=== PATIENT | male | born 1935 | race African-American/Black ===

== ENCOUNTER 2017-04-27 13:51 | Inpatient (IN) ==
[2017-04-27] MEDS ORDERED: SODIUM CHLORIDE 0.9% 1,000 ML IV STA (14:52)
--- NOTE | 2017-04-27 14:52 | XRay Report ---
XR chest 1V portable Indication: Abdominal pain. Comparison: None. Technique: Portable AP chest was performed. Findings: Moderate cardiomegaly is demonstrated. Additionally, the central vasculature is prominent and mid lower lung parenchyma demonstrates areas of reticular interstitial opacification and linear interstitial opacification with superimposed scattered airspace opacities additionally present. Gallbladder appears surgically absent. Bones and soft tissues are unremarkable. Impression: 1. Appearance of the chest is most suggestive of congestive heart failure with features of pulmonary edema interstitial and possibly some alveolar edema present. 04/27/2017 2:49 PM PROCEDURE INTERPRETED AT [facility] DEPARTMENT OF RADIOLOGY Final Report Signed by: Dr. William Crespo
--- NOTE | 2017-04-27 14:53 | XRay Report ---
XR abdomen 2V Indication: Abdominal pain. Comparison: None. Technique: Flat and erect images of the abdomen were performed. Findings: No organomegaly suggested. The bowel gas pattern demonstrates no significant abnormality. Bony structures as well as soft tissues demonstrate no evidence of significant pathology. IVC filter is present. Surgical absence of the gallbladder is demonstrated. Impression: 1. No active process is suggested within the abdomen or pelvis. 04/27/2017 2:50 PM PROCEDURE INTERPRETED AT [facility] DEPARTMENT OF RADIOLOGY Final Report Signed by: Dr. William Crespo
[2017-04-27 14:59] LABS: Basophils # 0.1 10*3/uL (0.0-0.2); Basophils % 1.7 % (0.0-0.8); Eosinophils # 0.2 10*3/uL (0.0-0.87); Eosinophils % 3.2 % (0.00-10.9); Hematocrit 26.6 VOL% (42.0-52.0); Hemoglobin 8.2 GM/DL (14.0-18.0); Immature Granulocytes % 0.4 %; Immature Granulocytes Absolute 0.02 #; Lymphocytes # 1.4 10*3/uL (1.4-4.0); Lymphocytes % 25.9 % (21.2-54.2); Mean Corpuscular HGB Conc 30.8 GM/DL (32-36); Mean Corpuscular Hemoglobin 23 PG (27-34); Mean Corpuscular Volume 73.9 FL (87-102); Mean Platelet Volume 11.3 FL (9.6-12.0); Monocytes # 0.8 10*3/uL (0.11-0.8); Monocytes % 15.6 % (1.7-12.7); NRBC # 0.02 10*3/uL; Neutrophils # 2.8 10*3/uL (1.4-7.4); Neutrophils % 53.2 % (38.7-73.9); Platelet Count 245 T/CUMM (130-400); Red Cell Distribution Width 17.7 % (9.3-17.3); White Blood Count 5.3 T/CUMM (4-12)
--- NOTE | 2017-04-27 15:16 | CT Report ---
CT abdomen pelvis wo con Indication: Diffuse abdominal pain. Nausea. Comparison: None. Technique: CT of the abdomen and pelvis was performed without administration of intravenous contrast. The CT examination was performed using one or more of the following dose reduction techniques: Automatic exposure control, adjustment of the mA and kV according to patient size, use of acute or iterative reconstruction techniques. Findings: Small right-sided pleural effusion is present. Lung parenchyma demonstrates some prominent interstitial lines and prominent dependent pulmonary venous structures. Cardiomegaly is demonstrated. The blood pool is hypoattenuating compared to the ventricle and aortic wall which is nonspecific finding but could reflect evidence of anemia. Coronary artery calcifications and/or stents are suggested within the right coronary artery. Noncontrast enhanced appearance of the liver is unremarkable. The gallbladder is surgically absent. Spleen contains multiple punctate calcifications compatible with prior granulomatous disease. Adrenal glands are unremarkable. The kidneys are blurred with motion and demonstrate multiple hypoattenuating lesions likely reflective of cysts. The largest on the right measures approximately 3.7 cm. The largest on the left measures up to 9.3 cm. Further evaluation is limited secondary to lack of intravenous contrast. Aorta and inferior vena cava demonstrate no acute findings. IVC filter is present. Diffuse intimal calcification of the aorta and iliac arteries is present. Noncontrast enhanced appearance of the stomach and duodenum is unremarkable. Large bowel demonstrates no acute findings. Appendix is not identified and may be surgically absent. Small bowel is grossly unremarkable. Intrapelvic contents demonstrate no specific abnormality. Osseous structures demonstrate degenerative changes of the right greater the left femoral acetabular joint. Additionally there is a mottled expansile appearance of the left SI joint and posterior iliac wing. Prominent trabeculae are present. While nonspecific, this could reflect evidence of Paget's disease. Other considerations could include sequelae of prior osteomyelitis. Facet arthropathy is noted bilaterally within the lower lumbar spine. Impression: 1. Compared to the left iliac wing and sacrum could reflect sequelae of prior Paget's disease or prior infection. 2. Facet arthropathy is moderate within the lower lumbar spine. 3. Mild congestive heart failure with minimal interstitial pulmonary edema can be considered. 4. Multiple bilateral renal cysts are present. Other findings are present as detailed. 04/27/2017 3:09 PM PROCEDURE INTERPRETED AT [facility] DEPARTMENT OF RADIOLOGY Final Report Signed by: Dr. William Crespo
[2017-04-27 15:19] LABS: Alanine Aminotransferase 168 U/L (16-61); Albumin 3.1 G/DL (3.4-5.0); Alkaline Phosphatase 146 U/L (45-117); Amylase 48 U/L (25-115); Aspartate Amino Transferase 234 U/L (0-37); Bilirubin,Total < 0.39 MG/DL (0.2-1.0); Blood Urea Nitrogen 48 MG/DL (7-18); Calcium 8.7 MG/DL (8.5-10.1); Glucose 85 MG/DL (74-106); Magnesium 2.1 MG/DL (1.8-2.4); Osmolality,Calculated 288.5 MOS/KG (273-304); Potassium 4.4 MMOL/L (3.5-5.1); Sodium 139 MMOL/L (136-145); Total Protein 6.5 G/DL (6.4-8.3)
--- NOTE | 2017-04-27 15:47 | Emergency Department Note ---
Sp Kraft Brittany, am scribing for, and in the presence of, Hood Ray MD 14:25. Flor Kraft Phillip K, MD, personally performed the services described in this documentation, ascribed by Rose Snowden in my presence, and it is both accurate and complete 547 . Arrival - Arrival Chief Complaint: Abdominal / Flank Pain Stated Complaint: Lower abdominal pain ED Nursing Triage Note: Patient reports abdominal pain that started last night. No relief following bm this am. Upper quadrants tender to palpation. Has history of constipation. Reports having a "hard" stool earlier today Mode of Arrival: Stretcher Limitations: No Limitations Source: Patient, RN Notes Reviewed Time Seen by Provider: 04/27/17 14:11 - History of Present Illness HPI Narrative: Patient is a 82 y/o black male presenting to the ED with c/o abdominal pain which onset last night. Patient reports a history of constipation and notes passing a hard stool earlier today, with no relief of abdominal pain. Nothing makes pain better or worse. Patient and caregiver deny any recent fevers. Patient does have some nausea, but has not had any vomiting today. Patient does have pain with swallowing. Caregiver denies knowledge of patient having Colonoscopy performed. Patient reports hx of Cholecystectomy, but no Appendectomy. Patient lives at home alone. No other complaint/pain. Allergies/Adverse Reactions: Allergies Allergy/AdvReac Type Severity Reaction Status Date / Time lisinopril AdvReac Swelling Verified 04/27/17 14:17 of Lip/Tongue/Throat Home Medications: Home Medications Medication Instructions Recorded Confirmed Type Nebivolol [Bystolic] 10 mg PO QAM 04/27/17 04/27/17 History Simvastatin 20 mg PO QAM 04/27/17 04/27/17 History hydrALAZINE TAB [Apresoline Tab] 12.5 mg PO BID 04/27/17 04/27/17 History Review of System - Review of System 12 point system: reviewed and no additional remarkable complaints except as stated - Review of System Constitutional: Absent: chills, fever Eyes: Absent: vision change Head/Ears/Nose/Throat: Absent: nasal drainage, sore throat Respiratory: Absent: respiratory distress Cardiovascular: Absent: chest pain Gastrointestinal: Present: abdominal pain, constipation. Absent: nausea, vomiting, diarrhea Genitourinary male: Absent: urgency, dysuria, frequency Musculoskeletal: Absent: arm pain, back pain, leg pain, neck pain Skin: Absent: rash Neurological: Absent: headache Psychiatric: Absent: anxiety, depression Medical,Surgical,& Family Hx - Medical History Cardio: History of: CHF, Hypertension HEENT: History of: Eye Problem (Glasses) - Family History Family History: Reports;: Family Hypertension (Brother) - Social History Smoking Status: Never smoker Frequency of Alcohol Use: None Type of Drug Use: None Exam Vital Signs: Vital Signs Temperature 99.2 F 04/27/17 14:02 Pulse Rate 67 04/27/17 15:03 Respiratory Rate 20 04/27/17 14:02 Blood Pressure 146/96 04/27/17 15:03 O2 Sat by Pulse Oximetry 100 04/27/17 15:03 - General General appearance: alert, in no apparent distress - Head Head exam: Present: atraumatic, normocephalic, normal inspection - Eye Eye exam: Present: normal appearance, PERRL, EOMI - ENT ENT exam: Present: normal exam, normal oropharynx - Neck Neck exam: Present: normal inspection, full ROM, trachea midline - Chest Chest inspection: Present: normal inspection, symmetric chest wall rise - Respiratory Respiratory exam: Present: normal lung sounds bilaterally - Cardiovascular Cardiovascular exam: Present: regular rate, normal rhythm, normal heart sounds - Abdominal Exam Abdominal exam: Present: soft, tenderness (diffuse abdominal tenderness to palpation), hypoactive bowel sounds. Absent: normal bowel sounds - Rectal Exam Rectal exam: Present: heme (-) stool - Extremities Exam Extremities exam: Present: normal inspection - Back Exam Back exam: Present: CVA tenderness (R), CVA tenderness (L). Absent: normal inspection - Neurological Exam Neurological exam: Present: alert, oriented X3, CN II-XII intact. Absent: motor sensory deficit - Psychiatric Psychiatric exam: Present: normal affect, normal mood - Skin Skin exam: Present: warm, dry Course Course Narrative: Patient discussed with the hospitalist Results - Labs CBC & BMP: 04/27/17 14:22 04/27/17 14:22 Lab Results: I have reviewed the patients labs Labs: Laboratory Tests 04/27/17 04/27/17 04/27/17 14:22 14:22 15:00 WBC 5.3 RBC 3.60 L Hgb 8.2 L Hct 26.6 L MCV 73.9 L MCH 23 L MCHC 30.8 L RDW 17.7 H Plt Count 245 Jenkins % (Auto) 15.6 H Baso % (Auto) 1.7 H Sodium 139 Potassium 4.4 Chloride 107 Carbon Dioxide 22 BUN 48 H Creatinine 2.40 H POC Creatinine 2.90 H Glucose 85 AST 234 H ALT 168 H Alkaline Phosphatase 146 H Albumin 3.1 L Albumin/Globulin Ratio 0.9 L - Diagnostic Findings Procedure: Abdominal x-ray: report reviewed by me ( No active process is suggested within the abdomen or pelvis.), Chest x-ray: report reviewed by me ( Appearance of the chest is most suggestive of congestive heart failure with features of pulmonary edema interstitial and possibly some alveolar edema present.), CT Abdomen and Pelvis: report reviewed by me (1. Compared to the left iliac wing and sacrum could reflect sequelae of prior Paget's disease or prior infection. 2. Facet arthropathy is moderate within the lower lumbar spine. 3. Mild congestive heart failure with minimal interstitial pulmonary edema can be considered. 4. Multiple bilateral renal cysts are present. Other findings are present as detailed.) Disposition Clinical Impression: Abdominal pain of unknown etiology, Elevated liver enzymes, CHF NYHA class III (symptoms with mildly strenuous activities) Case discussed with: patient Disposition: Still a Patient Condition: Guarded Additional Instructions: Admit to the hospitalist
--- NOTE | 2017-04-27 15:57 | EKG Report ---
Stationary ECG Study [facility] ER Test Date: 04/27/2017 3:55:49 PM Pat Name: WILBUR ENCISO Department: Room: Gender: M District Supervisor: : 1935 Requested by: Hood Dow Order Number: [id number] Reading MD: HCRIS PEMBERTON Intervals [place] Rate: 70 P: 45 GA: 173 QRS: 0 QRSD: 102 T: -30 QT: 426 QTc: 447 Interpretive Statements SINUS RHYTHM WITH FREQUENT VENTRICULAR PREMATURE COMPLEXES WITH OCCASIONAL SUPRAVENTRICULAR PREMATURE COMPLEXES POSSIBLE LEFT VENTRICULAR HYPERTROPHY Electronically Signed On 05-01-17 18:27:00 CDT by CHRIS PEMBERTON [email or web address]
--- NOTE | 2017-04-27 16:35 | Hospitalist History & Physical ---
Assessment and Plan (1) Elevated serum creatinine Status: Acute Current Visit: Yes (2) Abdominal pain of unknown etiology Status: Acute Current Visit: Yes (3) Elevated liver enzymes Status: Acute Current Visit: Yes (4) CHF NYHA class III (symptoms with mildly strenuous activities) Status: Acute Assessment and plan: We will admit patient our service. I want to get a liver ultrasound on this patient and a renal ultrasound on this patient. He has these bilateral kidneys cysts. He has never been here before I have no old records to look at. They need to be further characterized. We will recheck labs in the morning. It be worthwhile to get a urinalysis. I would like to obtain records from his primary care doctor regarding his previous labs. Patient is never been to our hospital for. CODE STATUS was discussed with patient and he would want to be a full code Current Visit: Yes History of Present Illness Chief complaint: Abdominal pain History of present illness: Mr. Crespo is a 82 year old male with past medical history significant for hypertension, congestive heart failure and mild cognitive impairment who is in his normal state of health until this morning. Apparently patient woke up complaining about abdominal pain after having a hard bowel movement. According to his caregiver patient has a low threshold for pain and patient is a poor historian. There have been no documented fever no chills. Recently he went to the ER at [facility] Tuesday and was told that his blood pressure was high. He went to his regular doctor yesterday which is Dr. aguilera and he adjusted some of his blood pressure medications. And today he presents to our hospital. Patient CT scan of his abdomen was reviewed that revealed multiple bilateral renal cysts mild congestive heart failure facet arthropathy and changes in his iliac wing and sacrum. Patient was found to have elevated creatinine and liver enzymes I was consulted to admit him. Home Medications Medication Instructions Recorded Confirmed Type Nebivolol [Bystolic] 10 mg PO QAM 04/27/17 04/27/17 History Simvastatin 20 mg PO QAM 04/27/17 04/27/17 History hydrALAZINE TAB [Apresoline Tab] 12.5 mg PO BID 04/27/17 04/27/17 History Allergies Allergy/AdvReac Type Severity Reaction Status Date / Time lisinopril AdvReac Swelling Verified 04/27/17 14:17 of Lip/Tongue/Throat Medical,Surgical,& Family Hx - Medical History Cardio: History of: CHF, Hypertension HEENT: History of: Eye Problem (Glasses) - Surgical History Abdominal Surgeries: Surgical HX of: Cholecystectomy - Family History Family History: Reports;: Family Hypertension (Brother) - Social History Smoking Status: Never smoker Frequency of Alcohol Use: None Type of Drug Use: None 12 point system: reviewed and no additional remarkable complaints except as stated Exam - Constitutional Vitals: Period Temp Pulse Resp BP Sys/Dill Pulse Ox Last 24 Hr 99.2 F-99.2 F 64-69 18-20 145-146/90-96 95-100 General appearance: normal weight - Head Head exam: Present: normal inspection - Eye Eye exam: Present: EOMI Pupils: Present: ADARSH - ENT ENT exam: Present: normal exam - Neck Neck exam: Present: normal inspection - Respiratory Respiratory exam: Present: clear to auscultation bilaterally - Cardiovascular Cardiovascular exam: Present: regular rate and rhythm - GI/Abdominal GI/Abdominal exam: Present: normal bowel sounds, tenderness (Noted in his right lower quadrant and right upper quadrant). Absent: rebound - Extremities Exam Extremities exam: Present: normal inspection - Back Exam Back exam: Present: normal inspection Results - Labs CBC & BMP: 04/27/17 14:22 04/27/17 14:22
[2017-04-27] MEDS ORDERED: ACETAMINOPHEN 325 MG TABLET PO PRN (16:39)
[2017-04-27] MEDS ORDERED: ONDANSETRON 4 MG/2 ML VIAL IV PRN (16:39)
[2017-04-27 17:06] LABS: White Blood Count 5.3 T/CUMM (4-12)
[2017-04-27 17:07] LABS: Hematocrit 26.6 VOL% (42.0-52.0); Hemoglobin 8.2 GM/DL (14.0-18.0); Mean Corpuscular Hemoglobin 23 PG (27-34); Mean Corpuscular Volume 73.9 FL (87-102)
[2017-04-27 17:12] LABS: Basophils % 1.7 % (0.0-0.8); Eosinophils % 3.2 % (0.00-10.9); Lymphocytes % 25.9 % (21.2-54.2); Mean Corpuscular HGB Conc 30.8 GM/DL (32-36); Mean Platelet Volume 11.3 FL (9.6-12.0); Monocytes % 15.6 % (1.7-12.7); Neutrophils % 53.2 % (38.7-73.9); Platelet Count 245 T/CUMM (130-400); Red Cell Distribution Width 17.7 % (9.3-17.3)
[2017-04-27 17:13] LABS: Basophils # 0.1 10*3/uL (0.0-0.2); Eosinophils # 0.2 10*3/uL (0.0-0.87); Immature Granulocytes % 0.4 %; Immature Granulocytes Absolute 0.02 #; Lymphocytes # 1.4 10*3/uL (1.4-4.0); Monocytes # 0.8 10*3/uL (0.11-0.8); NRBC # 0.02 10*3/uL; Neutrophils # 2.8 10*3/uL (1.4-7.4)
[2017-04-27 17:23] LABS: Eosinophils 3 % (0-10); Lymphocytes 20 % (20-55); Platelet Estimate Normal; Polychromasia Slight; Segmented Neutrophils 63 % (50-85); Total Cells Counted 100
[2017-04-27 17:24] LABS: Eosinophils 3 % (0-10); Lymphocytes 20 % (20-55); Platelet Estimate Normal; Polychromasia Few; Segmented Neutrophils 63 % (50-85); Total Cells Counted 100
[2017-04-27] MEDS: ENOXAPARIN 30 MG/0.3 ML SYRINGE SUBCUT SCH (17:59)
[2017-04-27 18:03] LABS: Folate 13.4 NG/ML (5.4-24.0); Vitamin B12 454 PG/ML (211-911)
[2017-04-27 18:10] LABS: Sedimentation Rate-Westergren 30 MM/HR (0-20)
[2017-04-27 18:52] LABS: Hepatitis A Ab IgM Quant 0.26 Index; Hepatitis A Ab IgM Result Negative (Negative); Hepatitis B Core IgM Quant < 0.05 Index; Hepatitis B Core IgM Result Negative (Negative); Hepatitis B Surface Ag Quant < 0.10 Index; Hepatitis B Surface Ag Result Negative (Negative); Hepatitis C Virus Ab Quant 0.09 Index; Hepatitis C Virus Ab Result Negative (Negative)
[2017-04-27 21:02] LABS: Apearance,Urine CLEAR (Clear); Bacteria,Urine Occasional /HPF (Few); Bilirubin,Urine Negative (Negative); Blood, Urine Negative (Negative); Glucose,Urine (UA) Negative (Negative); Hyaline Casts,Urine 2 /LPF (0-3); Ketones,Urine Negative (Negative); Mucus,Urine Occasional /LPF (Occasional); Nitrite,Urine Negative (Negative); Protein,Urine 100 MG/DL; RBC,Urine 1 /HPF (0-4); Squamous Epithelial Cell,Urine Occasional /HPF (0-10); Urine Color Yellow (Yellow); Urine Specific Gravity 1.016 (1.001-1.035); Urine Urobilinogen < 2.0 EU/DL (0.2-1.0); WBC,Urine 1 /HPF (0-6)
[2017-04-27] MEDS: hydrALAZINE 25 MG TABLET PO SCH (21:14)
[2017-04-27] MEDS: DOCUSATE SODIUM 100 MG CAPSULE PO SCH (21:15)
[2017-04-28 05:43] LABS: Basophils # 0.1 10*3/uL (0.0-0.2); Basophils % 1.7 % (0.0-0.8); Eosinophils # 0.2 10*3/uL (0.0-0.87); Eosinophils % 4.9 % (0.00-10.9); Hemoglobin 8.4 GM/DL (14.0-18.0); Immature Granulocytes % 0.2 %; Immature Granulocytes Absolute 0.01 #; Lymphocytes # 1.3 10*3/uL (1.4-4.0); Mean Corpuscular HGB Conc 31.1 GM/DL (32-36); Mean Corpuscular Hemoglobin 23 PG (27-34); Mean Corpuscular Volume 73.4 FL (87-102); Mean Platelet Volume 11.8 FL (9.6-12.0); Monocytes # 0.8 10*3/uL (0.11-0.8); Monocytes % 16.5 % (1.7-12.7); NRBC # 0.02 10*3/uL; Neutrophils # 2.3 10*3/uL (1.4-7.4); Neutrophils % 48.7 % (38.7-73.9); Platelet Count 259 T/CUMM (130-400); Red Blood Count 3.68 MC/CUMM (3.8-5.5); Red Cell Distribution Width 17.5 % (9.3-17.3); White Blood Count 4.7 T/CUMM (4-12)
[2017-04-28 06:19] LABS: Eosinophils 9 % (0-10); Lymphocytes 20 % (20-55); Segmented Neutrophils 61 % (50-85); Total Cells Counted 100
[2017-04-28 06:20] LABS: Hypochromasia 1+; Microcytosis 1+; Target Cells Slight
[2017-04-28 06:21] LABS: Acanthocytes Few; Ovalocytes Slight
[2017-04-28 06:22] LABS: Helmet Cells Slight
[2017-04-28 06:23] LABS: Bilirubin,Total 1.3 MG/DL (0.2-1.0); Calcium 8.3 MG/DL (8.5-10.1); Osmolality,Calculated 288.5 MOS/KG (273-304); Platelet Estimate Normal; Potassium 4.1 MMOL/L (3.5-5.1); Total Protein 6.4 G/DL (6.4-8.3)
--- NOTE | 2017-04-28 07:37 | Physician Query Form ---
CLICK EDIT DOCUMENT TO SELECT QUERY ANSWER --> OK --> SIGN Kitty Crespo RN, CCDS Certified Clinical Pattern Generator Operator W) [phone] (f) [phone] [email or web address]: Make your selection(s) from the choices in EACH section by typing an "x" and enter comments in the comment section. Please use your independent medical judgment in providing your response. This request does not imply that any particular answer is desired or expected. CLINICAL INDICATORS: (Providers should not edit this section) The medical record indicates that the patient was admitted with abd pain, creatinine of 2.40 on the 2nd that has decreased to 2.30 on the 3rd, GFR of 27# on the 2nd that has increased to 29# on the 3rd and did not notice IVF's. Clarify which of the following most accurately represents the patient's renal status: ( ) Acute kidney injury (non-traumatic) ( ) Acute renal failure ( ) Acute renal failure with underlying Chronic Kidney Disease (CKD) - please provide stage below ( ) Acute renal failure with pathological renal lesion ( ) Acute renal failure with necrosis ( ) tubular ( ) medullary ( ) cortical ( ) CKD - please provide stage below ( ) End Stage Renal Disease ( ) Acute interstitial nephritis ( ) Hepatorenal syndrome ( ) Other, please specify: ( x) Clinically unable to determine Chronic Kidney Disease Stages Source: National Kidney Disease Foundation ( ) Stage I (eGFR > or = 90) ( ) Stage II (eGFR 60 - 89) ( ) Stage III (eGFR 30 - 59) ( ) Stage IV (eGFR 15 - 29) ( ) Stage V (eGFR < 15 or dialysis) COMMENTS: PLEASE ALSO DOCUMENT RESPONSE IN PROGRESS NOTES AND/OR DISCHARGE SUMMARY Use of terms such as suspected, likely, or probable (associated with a specific diagnosis that is being evaluated, monitored, or treated as if it exists) are acceptable and can be restated in the discharge summary if not ruled out. MTDD
--- NOTE | 2017-04-28 08:08 | Ultrasound Report ---
US abdomen Indication: Elevated liver enzymes Comparison: CT abdomen pelvis dated April 27, 2017 Technique: Multiple longitudinal and transverse real-time sonographic images of the abdomen are obtained. Findings: The liver measures 15.2 cm and demonstrates normal echogenicity without focal abnormality on submitted images. Status post cholecystectomy. The common bile duct measures 0.5 cm in diameter. There is no evidence of intrahepatic ductal dilatation. The right and left kidneys measure 10.2 cm and 13.9 cm, respectively. No evidence of hydronephrosis. Right renal cyst measuring up to 4.7 cm. Left renal cysts measuring up to 9.3 and 2.6 cm respectively. Hyperechoic renal parenchyma suggestive of medical renal disease. The spleen measures 5.9 cm without focal abnormality. Evaluation of the pancreas limited secondary to bowel gas.. IVC and aorta: Visualized portions grossly unremarkable.. No evidence of ascites. IMPRESSION: Medical renal disease without evidence of hydronephrosis. Bilateral renal cysts are noted. This includes a prominent left renal cyst which measures up to 9.3 cm. Patient is status post cholecystectomy. PROCEDURE INTERPRETED AT [facility] DEPARTMENT OF RADIOLOGY Final Report Signed by: Dr Jarrett Contreras
[2017-04-28 09:14] LABS: Hemoglobin A1 (Alkaline) 98.4 % (96.5-98.5); Hemoglobin A2 (Alkaline) 1.6 % (1.5-3.5)
[2017-04-28] MEDS: hydrALAZINE 25 MG TABLET PO SCH ×2 (09:30→21:24)
[2017-04-28] MEDS: NEBIVOLOL 10 MG TABLET PO SCH (09:30)
[2017-04-28] MEDS: PANTOPRAZOLE 40 MG TABLET PO SCH (09:32)
[2017-04-28] MEDS: SIMVASTATIN 20 MG TABLET PO SCH (09:32)
[2017-04-28] MEDS: DOCUSATE SODIUM 100 MG CAPSULE PO SCH ×2 (09:32→21:24)
[2017-04-28] MEDS: ENOXAPARIN 30 MG/0.3 ML SYRINGE SUBCUT SCH (18:10)
--- NOTE | 2017-04-28 20:43 | Hospitalist Progress Note ---
Hospitalist: Subjective Interval history: 82-year-old male was admitted with abdominal pain and renal failure. He reports that his abdominal pain is better today. Exam - Constitutional Vitals: Period Temp Pulse Resp BP Sys/Dill Pulse Ox Last 24 Hr 97.2 F-98.0 F 58-104 16-18 133-149/68-93 91-100 Exam: General: No Acute Distress HEENT: Normocephalic, atraumatic, Extra ocular movements intact Neck: Supple, No JVD Chest: Clear to auscultation B/L CV: S1 + S2 audible without murmur, gallop or rub Abd: soft, NT, Non-distended, BS + Ext: No edema Skin: No purpura, bruising or rash Rheumatologic: No Joint deformities Neurologic: Strength 5/5 all extremities, no gross sensory deficits Results - Labs CBC & BMP: 04/28/17 05:00 04/28/17 05:00 - Impressions Assessment and Plan (1) Elevated serum creatinine Status: Acute Current Visit: Yes (2) Abdominal pain of unknown etiology Status: Acute Current Visit: Yes (3) Elevated liver enzymes Status: Acute Current Visit: Yes (4) CHF NYHA class III (symptoms with mildly strenuous activities)
[2017-04-29 05:44] LABS: Basophils # 0.1 10*3/uL (0.0-0.2); Basophils % 1.9 % (0.0-0.8); Eosinophils # 0.1 10*3/uL (0.0-0.87); Eosinophils % 1.9 % (0.00-10.9); Hematocrit 28.7 VOL% (42.0-52.0); Hemoglobin 9.1 GM/DL (14.0-18.0); Immature Granulocytes % 0.2 %; Immature Granulocytes Absolute 0.01 #; Lymphocytes # 1.5 10*3/uL (1.4-4.0); Lymphocytes % 28.1 % (21.2-54.2); Mean Corpuscular HGB Conc 31.7 GM/DL (32-36); Mean Corpuscular Hemoglobin 23 PG (27-34); Mean Corpuscular Volume 73.8 FL (87-102); Mean Platelet Volume 11.9 FL (9.6-12.0); Monocytes # 0.8 10*3/uL (0.11-0.8); Monocytes % 15.3 % (1.7-12.7); NRBC # 0.03 10*3/uL; Neutrophils # 2.8 10*3/uL (1.4-7.4); Neutrophils % 52.6 % (38.7-73.9); Platelet Count 304 T/CUMM (130-400); Red Blood Count 3.89 MC/CUMM (3.8-5.5); Red Cell Distribution Width 18.1 % (9.3-17.3); White Blood Count 5.2 T/CUMM (4-12)
[2017-04-29 06:20] LABS: Albumin 3.1 G/DL (3.4-5.0); Bilirubin,Direct 0.2 MG/DL (0.0-0.20); Bilirubin,Indirect 0.7 MG/DL (0.0-1.0); Bilirubin,Total 0.9 MG/DL (0.2-1.0); Burr Cells Slight; Calcium 8.7 MG/DL (8.5-10.1); Giant Platelets Few; Hypochromasia 1+; Osmolality,Calculated 286.7 MOS/KG (273-304); Ovalocytes Slight; Platelet Estimate Adequate; Potassium 4.6 MMOL/L (3.5-5.1); Total Protein 6.8 G/DL (6.4-8.3)
[2017-04-29 06:21] LABS: Microcytosis 1+
[2017-04-29] MEDS: NEBIVOLOL 10 MG TABLET PO SCH (09:41)
[2017-04-29] MEDS: PANTOPRAZOLE 40 MG TABLET PO SCH (09:41)
[2017-04-29] MEDS: SIMVASTATIN 20 MG TABLET PO SCH (09:41)
[2017-04-29] MEDS: hydrALAZINE 25 MG TABLET PO SCH ×2 (09:41→20:48)
[2017-04-29] MEDS: DOCUSATE SODIUM 100 MG CAPSULE PO SCH ×2 (09:41→20:49)
--- NOTE | 2017-04-29 12:09 | Gastrointestinal Consult Note ---
<Tamiko Coulter Edmund - Last Filed: 04/29/17 12:02> Assessment and Plan (1) Abdominal pain of unknown etiology Status: Acute Assessment and plan: 04/29-complaints of abdominal pain with recent constipation, currently resolved at this time. Noted to have some upper quadrant tenderness with palpation. No other associated symptoms at present time. CT of abdomen as well as ultrasound results noted as below. No prior history of endoscopy. Further plan addendum follow Dr. López. Current Visit: Yes (2) Elevated liver enzymes Status: Acute Assessment and plan: 04/29-findings on admission of elevated transaminases with history of cholecystectomy. CT and ultrasound negative for acute findings. Noted to be on simvastatin daily. No prior history of facility database to compare baseline LFTs. Hepatitis panel noted to be negative. No known prior history of alcohol use. Further plan an addendum to follow by Dr. López Current Visit: Yes History of Present Illness Chief complaint: Abdominal pain, elevated LFTs History of present illness: Mr. Crespo is a 82 year old male who was admitted to the hospital on 04/27 with complaints of lower abdominal pain. Patient is a fair historian however caregiver is present at bedside and assist in history. Patient is also obtained from chart review. Patient reportedly had an onset several days ago of constipation and lower abdominal pain. He was seen initially in the emergency room in [place] and was given some medication and sent home however he continued to decline over the week until Tuesday when he had increase in pain. He presented to see his PCP [place], Dr. Grewal, and was found to have an elevation in his blood pressure and medication change for this. His abdominal pain continued therefore he presented to our emergency room for further evaluation. Patient reportedly lives alone and his caregiver checks in on him daily. Patient states that he has episodes of constipation from time to time but this is not a chronic issue. He denies any melena or hematochezia with his bowel movements and was heme-negative in the emergency room. Patient denies any associated nausea or vomiting, weight loss, fever. He denies any dysphagia or dyspepsia symptoms as well. He has no prior history of endoscopy in the past. Upon admission, patient was reportedly had a large hard stool and verbalized relief of his abdominal pain at that time. He is able to tolerate a regular diet as well without exacerbation of the symptoms. Patient was also noted on admission to have an elevation in his transaminases. Patient's caregiver is unaware of any prior history of this in the past however states that his prior medical care was done in [place] or at [facility]. At this time, his bilirubin is noted 0.9, AST 282, ALT 245 and alkaline phosphatase 154. He has a history of cholecystectomy in the past however uncertain as to have gallstones were present at that time. He has had no recent changes in his medical history. Denies history of alcohol use. CT of abdomen without contrast on admission with no acute abdominal findings. Liver was unremarkable at that time. Abdominal ultrasound was also done with findings of postcholecystectomy and a common bile duct at 0.5 cm without intrahepatic ductal dilatation. Patient's caregiver states that he does take Tylenol for pain however she does not feel that he takes this unnecessarily on large amounts. He is also noted to take simvastatin on a regular basis. Home Medications Medication Instructions Recorded Confirmed Type Nebivolol [Bystolic] 10 mg PO QAM 04/27/17 04/27/17 History Simvastatin 20 mg PO QAM 04/27/17 04/27/17 History hydrALAZINE TAB [Apresoline Tab] 12.5 mg PO BID 04/27/17 04/27/17 History Allergies Allergy/AdvReac Type Severity Reaction Status Date / Time lisinopril AdvReac Swelling Verified 04/27/17 14:17 of Lip/Tongue/Throat Medical,Surgical,& Family Hx - Medical History Cardio: History of: CHF, Hypertension HEENT: History of: Eye Problem (Glasses) - Surgical History Abdominal Surgeries: Surgical HX of: Cholecystectomy - Family History Family History: Reports;: Family Hypertension (Brother) - Social History Smoking Status: Never smoker Frequency of Alcohol Use: None Type of Drug Use: None 12 point system: reviewed and no additional remarkable complaints except as stated - Constitutional Constitutional: Present: as per HPI - EENT Eyes: Present: as per HPI Ears: Present: as per HPI Nose, mouth and throat: Present: as per HPI - Cardiovascular Cardiovascular: Present: as per HPI - Respiratory Respiratory: Present: as per HPI - Gastrointestinal Gastrointestinal: Present: as per HPI, abdominal pain, constipation - Genitourinary Genitourinary: Present: as per HPI - Musculoskeletal Musculoskeletal: Present: as per HPI, back pain - Neurological Neurological: Present: as per HPI - Psychiatric Psychiatric: Present: as per HPI - Endocrine Endocrine: Present: as per HPI - Hematologic/Lymphatic Hematologic/Lymphatic: Present: as per HPI Exam - Constitutional Vitals: Period Temp Pulse Resp BP Sys/Dill Pulse Ox Last 24 Hr 97.4 F-99.5 F 60-104 16-22 129-149/54-86 93-100 General appearance: normal weight, no acute distress - Head Head exam: Present: normal inspection, normocephalic - Eye Eye exam: Present: other (Lids and conjunctive are unremarkable). Absent: scleral icterus - ENT ENT exam: Present: normal exam, normal oropharynx - Neck Neck exam: Present: normal inspection - Respiratory Respiratory exam: Present: clear to auscultation bilaterally. Absent: rales, rhonchi, wheezes - Cardiovascular Cardiovascular exam: Present: regular rate and rhythm. Absent: diastolic murmur , JVD, systolic murmur - GI/Abdominal GI/Abdominal exam: Present: normal bowel sounds, soft. Absent: ascites, distended, mass, organomegaly, tenderness - Extremities Exam Extremities exam: Present: normal inspection, full ROM - Back Exam Back exam: Present: normal inspection - Neurological Exam Neurological exam: Present: alert, oriented X3 - Psychiatric Psychiatric exam: Present: normal affect, normal mood - Skin Skin exam: Present: normal color, warm, dry Results - Labs CBC & BMP: 04/29/17 05:15 04/29/17 05:15 Lab Results: I have reviewed the past 24 hour labs - Diagnostic Findings Procedure: CT Abdomen and Pelvis: report reviewed by me, Ultrasound: report reviewed by me <Freddy López - Last Filed: 04/29/17 16:24> History of Present Illness History of present illness: Mr. Crespo is a 82 year old male Exam - Constitutional Vitals: Period Temp Pulse Resp BP Sys/Dill Pulse Ox Last 24 Hr 97.4 F-99.5 F 60-72 16-22 129-149/54-86 94-100 Results - Labs CBC & BMP: 04/29/17 05:15 04/29/17 05:15
[2017-04-29] MEDS: ENOXAPARIN 30 MG/0.3 ML SYRINGE SUBCUT SCH (17:02)
--- NOTE | 2017-04-29 17:57 | Event Note ---
Chart, data and notes reviewed, to include u/s and CT. Creatinine 2.6, no historical data to compare. Simple multiple renal cysts on u/s with increased parenchymal echogenicity c/w chronic kidney disease, no hydronephrosis. Cardiomegaly with no lio pulmonary edema. Lonstanding hypertension. UA with 2 + proteinuria. Urine studies ordered. Pt not examined. Full consult to follow in am. Outpatient f/u appropriate.
[2017-04-29 18:07] LABS: % Iron Saturation 4.1 % (18-50)
--- NOTE | 2017-04-29 18:25 | Hospitalist Progress Note ---
Hospitalist: Subjective Interval history: No abdominal pain today Exam - Constitutional Vitals: Period Temp Pulse Resp BP Sys/Dill Pulse Ox Last 24 Hr 97.4 F-99.5 F 60-72 16-22 129-149/54-86 94-100 Exam: General: No Acute Distress HEENT: Normocephalic, atraumatic, Extra ocular movements intact Neck: Supple, No JVD Chest: Clear to auscultation B/L CV: S1 + S2 audible without murmur, gallop or rub Abd: soft, NT, Non-distended, BS + Ext: No edema Skin: No purpura, bruising or rash Rheumatologic: No Joint deformities Neurologic: Strength 5/5 all extremities, no gross sensory deficits Results - Labs CBC & BMP: 04/29/17 05:15 04/29/17 05:15 - Impressions Assessment and Plan (1) Elevated serum creatinine, acute on chronic kidney disease Status: Acute Current Visit: Yes (2) Abdominal pain of unknown etiology Status: Acute Current Visit: Yes (3) Elevated liver enzymes Status: Acute Current Visit: Yes (4) CHF NYHA class III (symptoms with mildly strenuous activities)
--- NOTE | 2017-04-29 19:19 | ECHO Report ---
Parminder Crespo Exam Date: 04/29/2017 07:48 Referring Physician: Technologist: davina Arevalo ARDMS, RVT Age: 82 Ht (in): 64 Wt (lb): 193 Gender: M Exam Location: [facility] Echo Indications: CHF NYHA class III, Abdomen pain BP: 149 / 77 HR: 76 Rhythm: Sinus Technical Quality: IMPRESSIONS Severely reduced LV systolic function with global hypokinesis, ejection fraction 25%. Grade 2/4 diastolic dysfunction. Right-sided chamber dilation. Moderate left atrial enlargement. Mild mitral regurgitation. Moderate aortic regurgitation. Mild pulmonic regurgitation. Severe tricuspid regurgitation. Severe pulmonary hypertension with pulmonary artery pressure estimated at 76 mmHg. MEASUREMENTS (Male / Female) Normal Values 2D ECHO LV Diastolic Diameter PLAX 5.4 cm 4.2 - 5.9 / 3.9 - 5.3 cm LV Systolic Diameter PLAX 4.8 cm LV Fractional Shortening PLAX 11.4 % IVS Diastolic Thickness 1.0 cm 0.6 - 1.0 / 0.6 - 0.9 cm LVPW Diastolic Thickness 1.0 cm 0.6 - 1.0 / 0.6 - 0.9 cm RV Internal Dim ED PLAX 3.7 cm Aortic Root Diameter 3.8 cm LA Systolic Diameter LX 5.6 cm 3.0 - 4.0 / 2.7 - 3.8 cm DOPPLER TR Peak Velocity 407.0 cm/s TR Peak Gradient 66.3 mmHg FINDINGS Left Ventricle Normal left ventricular cavity size. Normal left ventricular wall thickness. Left ventricular ejection fraction is estimated at 25%. Right Ventricle Mildly increased right ventricular size. Right Atrium Severely increased right atrial size. Left Atrium The left atrium is moderately enlarged. Mitral Valve Mildly thickened mitral valve. Mild mitral valve regurgitation. Aortic Valve Aortic valve sclerosis without stenosis. Moderate aortic valve regurgitation. Tricuspid Valve Thickened tricuspid valve. Severe tricuspid valve regurgitation. Tricuspid regurgitation velocities suggest a PAP of 76 mmHg. Pulmonic Valve Morphologically normal pulmonic valve. Mild pulmonary valve regurgitation. Pericardium Normal pericardium without effusion. Aorta Normal ascending aorta dimension. Kiesha Ramon MD (Electronically Signed) Final Date: 29 April 2017 19:18
[2017-04-30 04:10] LABS: Basophils # 0.1 10*3/uL (0.0-0.2); Basophils % 1.2 % (0.0-0.8); Eosinophils # 0.3 10*3/uL (0.0-0.87); Eosinophils % 4.4 % (0.00-10.9); Hematocrit 27.8 VOL% (42.0-52.0); Hemoglobin 8.6 GM/DL (14.0-18.0); Immature Granulocytes % 0.4 %; Immature Granulocytes Absolute 0.02 #; Lymphocytes # 1.4 10*3/uL (1.4-4.0); Lymphocytes % 24.9 % (21.2-54.2); Mean Corpuscular HGB Conc 30.9 GM/DL (32-36); Mean Corpuscular Hemoglobin 23 PG (27-34); Mean Corpuscular Volume 73.5 FL (87-102); Mean Platelet Volume 10.9 FL (9.6-12.0); Monocytes % 17.3 % (1.7-12.7); NRBC # 0.04 10*3/uL; Neutrophils % 51.8 % (38.7-73.9); Platelet Count 255 T/CUMM (130-400); Red Blood Count 3.78 MC/CUMM (3.8-5.5); Red Cell Distribution Width 17.9 % (9.3-17.3); White Blood Count 5.7 T/CUMM (4-12)
[2017-04-30 04:28] LABS: Albumin 2.9 G/DL (3.4-5.0); Bilirubin,Direct 0.2 MG/DL (0.0-0.20); Bilirubin,Indirect 0.2 MG/DL (0.0-1.0); Bilirubin,Total 0.4 MG/DL (0.2-1.0); Calcium 8.5 MG/DL (8.5-10.1); Potassium 4.2 MMOL/L (3.5-5.1); Total Protein 6.2 G/DL (6.4-8.3)
[2017-04-30 04:53] LABS: Band Neutrophils 3 % (0-10); Eosinophils 2 % (0-10); Lymphocytes 25 % (20-55); Myelocytes 6 %; Nucleated Red Blood Cells 2 (0-5); Segmented Neutrophils 62 % (50-85); Total Cells Counted 100
[2017-04-30 04:54] LABS: Acanthocytes Few; Anisocytosis 1+; Hypochromasia 1+; Platelet Estimate Normal
[2017-04-30] MEDS: hydrALAZINE 25 MG TABLET PO SCH (09:47)
[2017-04-30] MEDS: NEBIVOLOL 10 MG TABLET PO SCH (09:48)
[2017-04-30] MEDS: DOCUSATE SODIUM 100 MG CAPSULE PO SCH (09:48)
[2017-04-30] MEDS: PANTOPRAZOLE 40 MG TABLET PO SCH (09:49)
--- NOTE | 2017-04-30 10:43 | Nephrology Consult Note ---
History of Present Illness Chief complaint: Referred for Elevated creatinine History of present illness: Mr. Crespo is a 82 year old male admitted for abd pain, extensive workup to include Ct and u/s revealed only constipation. Resolved with BM. Creatinine 2.5 for eGFR 27cc/min, CKD stage 4. 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 Pt states he's never been told he had problems with his kidneys. He denies SOB/pain. Wants to go home. Home Medications Medication Instructions Recorded Confirmed Type Nebivolol [Bystolic] 10 mg PO QAM 04/27/17 04/27/17 History Simvastatin 20 mg PO QAM 04/27/17 04/27/17 History hydrALAZINE TAB [Apresoline Tab] 12.5 mg PO BID 04/27/17 04/27/17 History Allergies Allergy/AdvReac Type Severity Reaction Status Date / Time lisinopril AdvReac Swelling Verified 04/27/17 14:17 of Lip/Tongue/Throat Medical,Surgical,& Family Hx - Medical History Cardio: History of: CHF, Hypertension HEENT: History of: Eye Problem (Glasses) - Surgical History Abdominal Surgeries: Surgical HX of: Cholecystectomy - Family History Family History: Reports;: Family Hypertension (Brother) - Social History Smoking Status: Never smoker Frequency of Alcohol Use: None Type of Drug Use: None Exam - Vital Signs Vital signs: Period Temp Pulse Resp BP Sys/Dill Pulse Ox Last 24 Hr 97.0 F-98.6 F 60-70 16-21 129-142/54-85 96-100 - General Appearance General appearance: well-developed, well-nourished EENT: ATNC, PERRL, mucous membranes dry, hearing intact, vision intact Neck: no JVD, no thyromegaly Respiratory: no kyphosis, clear Cardiology: no murmurs, no rub Gastrointestinal: normoactive bowel sounds, no tenderness Integumentary: no rash, warm and dry Neurologic: no focal deficit, no asterixis, alert and oriented x3 Musculoskeletal: no deformities, no erythema Psychiatric: mood/affect appropriate, cooperative Results - Labs CBC & BMP: 04/30/17 04:00 04/30/17 04:00 Assessment and Plan (1) CKD (chronic kidney disease) stage 4, GFR 15-29 ml/min Problem details: 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 Stable for d/ c home. Status: Acute Assessment and plan: Please make appointment for nephrology clinic in 1-2 months. Current Visit: Yes Specialty Discharge - Follow Up or Referrals Follow up with: Ian Elias MD [Physician] - (Call office Tuesday morning to make a 2 month follow up appointment)
[2017-04-30] MEDS ORDERED: FERROUS SULFATE ER 140 MG TABLET PO SCH (11:00)
[2017-04-30 12:19] VITALS: BP 135/82
--- NOTE | 2017-04-30 12:20 | Discharge Summary ---
Hospital Course - Hospital Course Hospital Course: 82 year old male with past medical history significant for hypertension, mild cognitive impairment was admitted with abdominal pain after having a hard bowel movement. According to his caregiver patient has a low threshold for pain and patient is a poor historian. There have been no documented fever no chills. Recently he went [facility] the ER at [facility] Tuesday and was told that his blood pressure was high. He went to his regular doctor Dr. Whelan and he adjusted some of his blood pressure medications. And today he presented to our hospital. Patient CT scan of his abdomen was reviewed that revealed multiple bilateral renal cysts, facet arthropathy and changes in his iliac wing and sacrum. Patient was found to have elevated creatinine and liver enzymes. His abdominal pain resolved after a good bowel movement and was felt secondary to constipation. His liver enzymes were found to be elevated due to statin and it has been discontinued. His primary care physician will continue to monitor his liver function test procedure coming down towards normal. GI was consulted and agreed with the current treatment plan. He had elevated creatinine which was felt to be due to chronic kidney disease stage IV and was evaluated by Dr. Elias. Chronic kidney disease was felt to be secondary to hypertensive nephrosclerosis. Overall his medical problems have been addressed and are stable. Patient has reached maximal hospital benefit and being discharged home in improved and stable condition. Prescriptions and discharge instructions were provided. Patient lives at home with his caregiver. - Time spent with patient Time with patient DS: Less than 30 minutes Diagnosis - Discharge Diagnosis (1) Abdominal pain of unknown etiology Status: Resolved (2) CKD (chronic kidney disease) stage 4, GFR 15-29 ml/min Status: Chronic Specialty Discharge - Follow Up or Referrals Follow up with: Ian Elias MD [Physician] - (Call office Tuesday morning to make a 2 month follow up appointment) Discharge Plan - Discharge Data Condition at Discharge: Stable Discharge Diet: low salt diet Activity: resume usual activities as tolerated Hygiene: no restrictions Weight Bearing at Discharge: full weight bearing - Discharge Medications New Polyethylene Glycol Powder [Miralax] 17 gm PO DAILY #1 Docusate Sodium Cap [Colace Cap] 100 mg PO BID #60 capsule Continue hydrALAZINE TAB [Apresoline Tab] 12.5 mg PO BID Nebivolol [Bystolic] 10 mg PO QAM Simvastatin 20 mg PO QAM - Follow Up or Referral Follow Up: Ian Elias MD [Physician] - (Call office Tuesday morning to make a 2 month follow up appointment) - Forms/Instructions Exam - Constitutional Vitals: Period Temp Pulse Resp BP Sys/Dill Pulse Ox Last 24 Hr 97.0 F-98.1 F 65-70 16-18 130-142/70-85 96-100 Exam: General: No Acute Distress HEENT: Normocephalic, atraumatic, Extra ocular movements intact Neck: Supple, No JVD Chest: Clear to auscultation B/L CV: S1 + S2 audible without murmur, gallop or rub Abd: soft, NT, Non-distended, BS + Ext: No edema Skin: No purpura, bruising or rash Rheumatologic: No Joint deformities Neurologic: Strength 5/5 all extremities, no gross sensory deficits Discharge Results Labs on day of discharge: Labs from last 24 hours 04/30/17 04/30/17 04/30/17 04:00 04:00 02:40 WBC 5.7 RBC 3.78 L Hgb 8.6 L Hct 27.8 L MCV 73.5 L MCH 23 L MCHC 30.9 L RDW 17.9 H Plt Count 255 MPV 10.9 Neut % (Auto) 51.8 Lymph % (Auto) 24.9 [place] % (Auto) 17.3 H Eos % (Auto) 4.4 Baso % (Auto) 1.2 H Neut # (Auto) 3.0 Lymph # (Auto) 1.4 [place] # (Auto) 1.0 H Eos # (Auto) 0.3 Baso # (Auto) 0.1 Total Counted 100 Immature Gran % 0.4 Nucleated RBC % 0.7 Immature Gran # 0.02 Segmented Neutrophils 62 Band Neutrophils 3 Lymphocytes 25 Monocytes 2 Eosinophils 2 Myelocytes 6 Nucleated RBCs 2 Nucleated RBCs # 0.04 Platelet Estimate Normal Immature Plt Fraction 0.0 Hypochromasia 1+ Anisocytosis 1+ Acanthocytes (Spur) Few Sodium 136 Potassium 4.2 Chloride 107 Carbon Dioxide 19 L Anion Gap 14.2 BUN 52 H Creatinine 2.40 H GFR Calculation 27 BUN/Creatinine Ratio 21.00 H Glucose 95 Calculated Osmolality 285.0 Calcium 8.5 Iron TIBC % Saturation Total Bilirubin 0.40 Direct Bilirubin 0.20 Indirect Bilirubin 0.2 AST 172 H ALT 193 H Alkaline Phosphatase 136 H Total Protein 6.2 L Albumin 2.9 L Urine Eosinophils Ur Random Creatinine U Random Total Protein Ur Random Urea Nitrogn 887 04/30/17 04/30/17 04/29/17 02:40 02:40 05:07 WBC RBC Hgb Hct MCV MCH MCHC RDW Plt Count MPV Neut % (Auto) Lymph % (Auto) [place] % (Auto) Eos % (Auto) Baso % (Auto) Neut # (Auto) Lymph # (Auto) [place] # (Auto) Eos # (Auto) Baso # (Auto) Total Counted Immature Gran % Nucleated RBC % Immature Gran # Segmented Neutrophils Band Neutrophils Lymphocytes Monocytes Eosinophils Myelocytes Nucleated RBCs Nucleated RBCs # Platelet Estimate Immature Plt Fraction Hypochromasia Anisocytosis Acanthocytes (Spur) Sodium Potassium Chloride Carbon Dioxide Anion Gap BUN Creatinine GFR Calculation BUN/Creatinine Ratio Glucose Calculated Osmolality Calcium Iron 16 L TIBC 394 % Saturation 4.1 L Total Bilirubin Direct Bilirubin Indirect Bilirubin AST ALT Alkaline Phosphatase Total Protein Albumin Urine Eosinophils Ur Random Creatinine 134 U Random Total Protein 73 Ur Random Urea Nitrogn 04/29/17 02:40 WBC RBC Hgb Hct MCV MCH MCHC RDW Plt Count MPV Neut % (Auto) Lymph % (Auto) [place] % (Auto) Eos % (Auto) Baso % (Auto) Neut # (Auto) Lymph # (Auto) [place] # (Auto) Eos # (Auto) Baso # (Auto) Total Counted Immature Gran % Nucleated RBC % Immature Gran # Segmented Neutrophils Band Neutrophils Lymphocytes Monocytes Eosinophils Myelocytes Nucleated RBCs Nucleated RBCs # Platelet Estimate Immature Plt Fraction Hypochromasia Anisocytosis Acanthocytes (Spur) Sodium Potassium Chloride Carbon Dioxide Anion Gap BUN Creatinine GFR Calculation BUN/Creatinine Ratio Glucose Calculated Osmolality Calcium Iron TIBC % Saturation Total Bilirubin Direct Bilirubin Indirect Bilirubin AST ALT Alkaline Phosphatase Total Protein Albumin Urine Eosinophils None seen Ur Random Creatinine U Random Total Protein Ur Random Urea Nitrogn DS: Provider Date of admission: 04/27/17 16:05 Primary care physician: . No PCP Attending physician on admission: Aubrey Lo MD Consults: 04/29/17 09:33 Consult to Physician [CONS] Routine Comment: Please evaluate for renal failure Consulting Provider: Aubrey Alberto When should Consulting Provider be notified: Now When should Consulting Provider be notified: Now Person Notified: talked to Zahira at the answering service Date Notified: 04/29/17 Time Notified: 16:51 Consult Notification Comment: talked to Dr. Elias and he stated he would see the patient in the morning. 04/29/17 09:35 Consult to Physician [CONS] Routine Comment: Please evaluate for Abd pain & elevated LFTs Consulting Provider: Freddy López Consulting Provider Notified: Yes When should Consulting Provider be notified: Now When should Consulting Provider be notified: Now Person Notified: guille lisette Date Notified: 04/29/17 Time Notified: 11:53 04/29/17 11:28 Consult to Case Mgmt/Social Srvs [CONS] Routine Reason for Case Mgmt/Social Srvs: Discharge Planning Equipment Consult Comment: Deliver a Standard Walker to room 335 f/Pt before D/C home; Pt 5ft 4in 145# Discharging clinician: Kristy Fitzpatrick MD
[2017-05-01] MEDS ORDERED: POLYETHYLENE GLYCOL POWDER 17 GM PACK PO SCH (09:00)
== END 2017-04-30 15:25 | disposition home or self-care (01) | DRG 392 ==
LOC: N.ED 13:51 → SUATTDRO 16:05 → N.EDINP 16:05 → N.3E 17:35
PROVIDERS: ADMIT Internal Medicine; ATTEND Hospitalist

== ENCOUNTER 2017-06-23 11:18 | Inpatient (IN) ==
[2017-06-23] MEDS ORDERED: FUROSEMIDE 100 MG/10 ML VIAL IV STA (11:42)
[2017-06-23] MEDS ORDERED: FUROSEMIDE 40 MG/4 ML VIAL ONE (11:55)
[2017-06-23 12:10] LABS: Basophils # 0.1 10*3/uL (0.0-0.2); Basophils % 2.5 % (0.0-0.8); Eosinophils # 0.3 10*3/uL (0.0-0.87); Eosinophils % 7.4 % (0.00-10.9); Hematocrit 28.4 VOL% (42.0-52.0); Hemoglobin 8.6 GM/DL (14.0-18.0); Immature Granulocytes % 0.2 %; Immature Granulocytes Absolute 0.01 #; Lymphocytes # 1.2 10*3/uL (1.4-4.0); Lymphocytes % 29.4 % (21.2-54.2); Mean Corpuscular HGB Conc 30.3 GM/DL (32-36); Mean Corpuscular Hemoglobin 21 PG (27-34); Mean Corpuscular Volume 70.6 FL (87-102); Mean Platelet Volume 11.1 FL (9.6-12.0); Monocytes # 0.6 10*3/uL (0.11-0.8); Monocytes % 13.6 % (1.7-12.7); Neutrophils # 1.9 10*3/uL (1.4-7.4); Neutrophils % 46.9 % (38.7-73.9); Platelet Count 237 T/CUMM (130-400); Red Blood Count 4.02 MC/CUMM (3.8-5.5); Red Cell Distribution Width 19.8 % (9.3-17.3); White Blood Count 4.1 T/CUMM (4-12)
[2017-06-23 12:23] LABS: INR 1.2; PT Patient Result 12.3 SECS; Partial Thromboplastin Time 22.7 SECS (0-40)
--- NOTE | 2017-06-23 12:23 | XRay Report ---
Portable chest Date: 06/23/2017 Clinical history: Shortness of breath Comparison: 04/27/2017 Technique: Portable AP sitting chest Findings: Stable cardiomegaly with uncoiling of the aorta. Reduced right perihilar parenchymal findings. However there is progressive diffuse parenchymal findings at the left lung base with small left pleural effusion. Calcified granulomata/nodes with degenerative changes. Impression: Persistent cardiomegaly with findings which can be seen with residual mild CHF. Findings are improved on the right but progressive on the left. It is difficult to exclude infiltration or other pathology at the left lung base with larger small left pleural effusion. PROCEDURE INTERPRETED AT [facility] DEPARTMENT OF RADIOLOGY Final Report Signed by: Dr. Yudith Herrera
[2017-06-23 12:31] LABS: Bilirubin,Total 0.5 MG/DL (0.2-1.0); Calcium 8.5 MG/DL (8.5-10.1); Osmolality,Calculated 288.3 MOS/KG (273-304); Total Protein 6.9 G/DL (6.4-8.3)
[2017-06-23 12:32] LABS: Troponin I Only 0.086 NG/ML (0.00-0.045)
--- NOTE | 2017-06-23 12:45 | Emergency Department Note ---
Quinn Kraft Manpreet, am scribing for, and in the presence of, William Shaikh MD 11: 44. Hawa Kraft James D, MD, personally performed the services described in this documentation, ascribed by Ki Ball in my presence, and it is both accurate and complete . Arrival - Arrival Chief Complaint: Shortness of Breath Stated Complaint: breathing problems ED Nursing Triage Note: cough and congestion with wheezing onset x 1 week Mode of Arrival: Wheelchair Limitations: No Limitations Source: Patient, RN Notes Reviewed - History of Present Illness HPI Narrative: Pt is a 82 y/o male who presents to the ED with CC of cough, wheezing, and SOB that began 4 days ago. Pt has a PMHx of CHF and HTN, but denies any fever, chills, or N/V/D. Pt is not on Lasix and denies smoking cigarettes. No other pains/complaints reported to the ED. Onset (ago): day(s) (4 days ago) Consistency: constant Severity: mild, moderate Severity scale (1-10): 3 Allergies/Adverse Reactions: Allergies Allergy/AdvReac Type Severity Reaction Status Date / Time lisinopril AdvReac Swelling Verified 04/27/17 14:17 of Lip/Tongue/Throat Home Medications: Home Medications Medication Instructions Recorded Confirmed Type Nebivolol [Bystolic] 10 mg PO QAM 04/27/17 06/23/17 History Simvastatin 20 mg PO QAM 04/27/17 06/23/17 History hydrALAZINE TAB [Apresoline Tab] 12.5 mg PO BID 04/27/17 06/23/17 History Aspirin EC Tab 81 mg PO QAM 06/23/17 06/23/17 History Review of System - Review of System 12 point system: reviewed and no additional remarkable complaints except as stated - Review of System Constitutional: Absent: chills, diaphoresis, fever Head/Ears/Nose/Throat: Absent: nasal drainage, sore throat Respiratory: Present: cough, respiratory distress, wheezing Cardiovascular: Absent: chest pain Gastrointestinal: Absent: abdominal pain, nausea, vomiting Genitourinary male: Absent: dysuria Musculoskeletal: Absent: back pain, neck pain Neurological: Absent: headache, weakness, numbness, paresthesias Medical,Surgical,& Family Hx - Medical History Cardio: History of: CHF, Hypertension HEENT: History of: Eye Problem (Glasses) - Surgical History Abdominal Surgeries: Surgical HX of: Cholecystectomy - Family History Family History: Reports;: Family Hypertension (Brother) - Social History Smoking Status: Never smoker Frequency of Alcohol Use: None Type of Drug Use: None Exam Vital Signs: Vital Signs Temperature 96.3 F L 06/23/17 11:42 Pulse Rate 86 06/23/17 11:42 Respiratory Rate 24 06/23/17 11:42 Blood Pressure 156/87 06/23/17 11:42 O2 Sat by Pulse Oximetry 98 06/23/17 11:21 GENERAL: This is a well-nourished well-developed black male in no apparent distress. VITAL SIGNS: Reviewed HEENT: Head is atraumatic and normocephalic. Pupils are equal round react to light. Extraocular movements are intact. Oropharynx is benign with moist mucous membranes. NECK: Neck is soft and supple without tenderness. There are no masses. There is no lymphadenopathy. LUNGS: Decreased breath sounds in all lung gaspar. Chest rises symmetrically. There is no chest wall tenderness. CV: Heart is regular rate and rhythm without murmurs rubs or gallops. JVD present to the angle of the mandible. ABDOMEN: Abdomen is soft, nontender to palpation. There are no abdominal abnormal masses palpated. There is no organomegaly. Bowel sounds are present and active. SKIN: Skin is warm and dry. No rash. EXTREMITIES: Patient has full range of motion without tenderness. There is 2+ pitting bilateral lower extremity pedal edema. NEUROLOGIC: Awake alert and oriented 4. Cranial nerves II through XII are grossly intact. Motor is 5 over 5 in all extremities bilaterally. Course - Consultations Consultation #1: Discussed with hospitalist. Patient will be admitted to their service. Time: 12:44 Results - Labs CBC & BMP: 06/23/17 11:56 06/23/17 11:56 Lab Results: I have reviewed the patients labs Labs: Laboratory Tests 06/23/17 06/23/17 06/23/17 11:56 11:56 11:56 WBC 4.1 RBC 4.02 Hgb 8.6 L Hct 28.4 L MCV 70.6 L MCH 21 L MCHC 30.3 L RDW 19.8 H [place] % (Auto) 13.6 H Baso % (Auto) 2.5 H Lymph # (Auto) 1.2 L INR 1.2 PT Patient/Control Mix 12.3 Circ Anticoag PTT 22.7 Sodium 141 Potassium 4.0 Chloride 111 H Carbon Dioxide 22 Anion Gap 12.0 BUN 32 H Creatinine 2.30 H Glucose 117 H AST 38 H Troponin I 0.086 H Albumin 3.0 L Globulin 3.9 H Albumin/Globulin Ratio 0.7 L Laboratory Tests 06/23/17 11:56 B-Natriuretic Peptide 3517 H Laboratory Tests 06/23/17 12:46 Urine Color Yellow Urine Appearance Clear Urine pH 5.0 Ur Specific [place] 1.008 Urine Protein 30 Urine Glucose (UA) Negative Urine Ketones Negative Urine Blood Negative Urine Nitrate Negative Urine Bilirubin Negative Urine Urobilinogen < 2.0 H Urine Leukocytes Negative Urine RBC <1 Urine WBC <1 Ur Squamous Epith Cells Occasional Ur Culture Indicated? Not indicated - EKG EKG results: interpreted by ERMD - Impressions EKG: Normal sinus rhythm with a rate of 63 with frequent PVCs, evidence of inferior ischemia with T-wave inversion and ST segment depression. Patient also has lateral ischemia. - Diagnostic Findings Procedure: Chest x-ray: image reviewed by me (Increased pulmonary markings bilaterally consistent with pulmonary edema.) Disposition Clinical Impression: Pulmonary edema Case discussed with: patient, patient's family Disposition: Still a Patient Condition: Stable
[2017-06-23 13:07] LABS: Apearance,Urine CLEAR (Clear); Bilirubin,Urine Negative (Negative); Blood, Urine Negative (Negative); Glucose,Urine (UA) Negative (Negative); Ketones,Urine Negative (Negative); Nitrite,Urine Negative (Negative); Protein,Urine 30 MG/DL; RBC,Urine <1 /HPF (0-4); Squamous Epithelial Cell,Urine Occasional /HPF (0-10); Urine Color Yellow (Yellow); Urine Specific Gravity 1.008 (1.001-1.035); Urine Urobilinogen < 2.0 EU/DL (0.2-1.0); WBC,Urine <1 /HPF (0-6)
[2017-06-23] MEDS ORDERED: ONDANSETRON 4 MG/2 ML VIAL IV PRN (14:51)
[2017-06-23] MEDS ORDERED: ACETAMINOPHEN 325 MG TABLET PO PRN (14:51)
[2017-06-23] MEDS: FUROSEMIDE 40 MG/4 ML VIAL IV SCH (15:32)
--- NOTE | 2017-06-23 16:13 | Hospitalist History & Physical ---
Assessment and Plan (1) CHF NYHA class III (symptoms with mildly strenuous activities) Status: Acute Assessment and plan: Admit to telemetry. BNP is 3517. Order echo. IV lasix with caution due to kidney function. Consult cardiology. Current Visit: No (2) Elevated serum creatinine Status: Acute Assessment and plan: Pt. has CKD. From previous records, pt is at his baseline. 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 Stable for d/ c home. Status: Chronic Assessment and plan: Avoid nephrotoxic agents. Daily BMPs. Current Visit: No (4) Chronic anemia Status: Chronic Current Visit: Yes (5) Elevated troponin Status: Acute Assessment and plan: Troponin is 0.086. Probably secondary to renal insufficency but will cycle enzymes. Current Visit: Yes History of Present Illness Chief complaint: shortness of breath History of present illness: Mr. Crespo is a 82 year old black male with a history of htn, chf, CKD, and chronic anemia that presents to the ED with complaints of shortness of breath, wheezing, and cough. On evaluation in the ED, pt was noted to have a BNP of 3517. CXR revealed 'persistent cardiomegaly with findings which can be seen with residual mild CHF'. Pt. was accepted onto our service. Pt. was seen and examined in telemetry room 285. Pt. was alone in room and is a poor historian. Pt. did confirm that he was brought in by a loved one (who is not present). Pt. states he was unable to breath and it started yesterday. He also reported that a couple of days ago, he noticed "some swelling" in the legs". Pt. will be further evaluated and treated for CHF. Home Medications Medication Instructions Recorded Confirmed Type Nebivolol [Bystolic] 10 mg PO QAM 04/27/17 06/23/17 History Simvastatin 20 mg PO QAM 04/27/17 06/23/17 History hydrALAZINE TAB [Apresoline Tab] 12.5 mg PO BID 04/27/17 06/23/17 History Aspirin EC Tab 81 mg PO QAM 06/23/17 06/23/17 History Allergies Allergy/AdvReac Type Severity Reaction Status Date / Time lisinopril AdvReac Swelling Verified 04/27/17 14:17 of Lip/Tongue/Throat Medical,Surgical,& Family Hx - Medical History Cardio: History of: CHF, Hypertension HEENT: History of: Eye Problem (Glasses) Endocrine: History of: Dyslipidemia - Surgical History Abdominal Surgeries: Surgical HX of: Cholecystectomy - Family History Family History: Reports;: Family Hypertension (Brother) - Social History Smoking Status: Never smoker Frequency of Alcohol Use: None Type of Drug Use: None ROS unobtainable: due to mental status (pt. answered some questions but was a poor historian ) - Psychiatric Psychiatric: Present: memory loss Exam - Constitutional Vitals: Period Temp Pulse Resp BP Sys/Dill Pulse Ox Last 24 Hr 96.3 F-96.3 F 86-86 24-24 156-156/87-87 98 General appearance: normal weight, no acute distress - Head Head exam: Present: normal inspection, normocephalic - Eye Eye exam: Present: EOMI Pupils: Present: ADARSH - Respiratory Respiratory exam: Present: clear to auscultation bilaterally - Cardiovascular Cardiovascular exam: Present: regular rate and rhythm - GI/Abdominal GI/Abdominal exam: Present: normal bowel sounds, soft. Absent: tenderness - Extremities Exam Extremities exam: Present: edema (trace) - Neurological Exam Neurological exam: Present: alert, oriented X3 - Psychiatric Psychiatric exam: Present: normal affect, normal mood - Skin Skin exam: Present: normal color, warm, dry Results - Labs CBC & BMP: 06/23/17 11:56 06/23/17 11:56 Lab Results: I have reviewed the past 24 hour labs
--- NOTE | 2017-06-23 17:51 | Cardiology Consult Note ---
Assessment and Plan (1) Congestive heart failure Status: Acute Assessment and plan: He has chronic cardiomyopathy and states she has a history of heart failure followed by bristle machine operator in [facility] who comes up from [place]. He apparently is having exacerbation of this. Agree with diuresis and reassessment of the ejection fraction. Current Visit: Yes (2) Cardiomyopathy Status: Acute Assessment and plan: Recent echocardiogram ejection fraction 25%. Current Visit: Yes (3) Lower extremity edema Status: Acute Assessment and plan: This is recurrent with a history of heart failure. His recent developed this or had exacerbation of this. Current Visit: Yes (4) PVCs (premature ventricular contractions) Status: Chronic Assessment and plan: This is present on previous ECGs 6 weeks ago. 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 Stable for d/ c home. Status: Chronic Assessment and plan: Followed by PCP and Dr. Elias to see the patient here. Current Visit: No (6) Chronic anemia Status: Chronic Assessment and plan: This is probably anemia of chronic disease. Current Visit: Yes (7) Pulmonary hypertension Status: Chronic Current Visit: Yes History of Present Illness - Data of Consult Patient: new to practice Consult date: 06/23/17 Requesting Physician: Kristy Fitzpatrick - Consult Narrative Reason for consult: Congestive heart failure History of present illness: Mr. Crespo is a 82 year old male who is a poor historian at best. He was admitted with shortness of breath, wheezing and cough. He was evaluated and found to have elevated BNP and chest x-ray was consistent with some mild congestive heart failure. Advanced progressive lower extremity edema recently. He has some mild PND symptomatology. His shortness of breath seem to progress over the last couple days or so. He gives a history of having congestive heart failure is followed by bristle machine operator in [facility] who apparently comes out from [facility]. The patient denies having a myocardial infarction or heart surgery or the procedures. He states he is aware that he has heart failure and that is why the bristle machine operator in [place] cesium. He does not remember the bristle machine operator's name but is aware that they are from [place]. He has chronic renal insufficiency was seen recently about 6 weeks ago and at that time he also had echocardiogram with ejection fraction 25%. His echocardiogram also revealed moderate left atrial enlargement, moderate aortic insufficiency, severe tricuspid regurgitation and severely elevated right-sided pressures estimated at 76 mmHg. His troponin at the present is insignificant at 0.086. He also has had chronic anemia and this may be chronic disease anemia. He denies any GI bleeding. He denies any anginal symptomatology palpitations syncope or near syncope. As are noted no history of heart surgery. He has no history of GI bleeding or other bleeding issues. CC: Kristy Fitzpatrick MD - Home Medications and Allergies Home Medications: Home Medications Medication Instructions Recorded Confirmed Type Nebivolol [Bystolic] 10 mg PO QAM 04/27/17 06/23/17 History Simvastatin 20 mg PO QAM 04/27/17 06/23/17 History hydrALAZINE TAB [Apresoline Tab] 12.5 mg PO BID 04/27/17 06/23/17 History Aspirin EC Tab 81 mg PO QAM 06/23/17 06/23/17 History Allergies/Adverse Reactions: Allergies Allergy/AdvReac Type Severity Reaction Status Date / Time lisinopril AdvReac Swelling Verified 04/27/17 14:17 of Lip/Tongue/Throat Review of systems: Constitutional: Denies anorexia, chills, fatigue, fever, frequent falls, night sweats, weight gain, weight loss Eyes: Denies visual changes or loss of vision Ears: Denies decreased hearing, vertigo Nose, mouth and throat: Denies dysphagia, epistaxis, headaches, neck pain, tongue swelling, Neck: Denies thyromegaly or masses. No stiffness. Cardiovascular: as per HPI Respiratory: Complains of recent cough, dyspnea dyspnea on exertion as described. He has had some wheezing. Denies hemoptysis Gastrointestinal: Denies abdominal pain, constipation, dyspepsia, dysphagia, hematemesis, hematochezia, melena, nausea, vomiting Genitourinary: Denies dysuria, hematuria, nocturia Musculoskeletal: Denies arthralgias, joint swelling, muscle weakness, myalgias; has had recent lower extremity edema. Neurological: denies abnormal gait, abnormal speech, confusion, convulsions, frequent falls, headaches, memory loss, syncope Psychiatric: Denies anxiety, confusion, depression Endocrine: Denies cold intolerance, fatigue, heat intolerance Hematologic/Lymphatic: Denies easy bleeding, easy bruising Dermatologic: Denies Rash, itching, shingles Medical,Surgical,& Family Hx - Medical History Cardio: History of: CHF, Hypertension HEENT: History of: Eye Problem (Glasses) Endocrine: History of: Dyslipidemia - Surgical History Abdominal Surgeries: Surgical HX of: Cholecystectomy - Family History Family History: Reports;: Family Hypertension (Brother) - Social History Smoking Status: Never smoker Frequency of Alcohol Use: None Type of Drug Use: None Marital Status: Single Lives With:: Alone Functional capacity: independent ambulation Physical Examination Vital Signs Temp Pulse Resp BP Pulse Ox 96.3 F L 86 24 156/87 98 06/23/17 11:21 06/23/17 11:21 06/23/17 11:21 06/23/17 11:21 06/23/17 11:21 Exam: General appearance: normal weight, no acute distress, is eating supper while they are in fact a supper the entire timeout was trying to interview and examine him. Head exam: normal inspection, atraumatic Eye exam: Pupils are equal and reactive. EOMI. There is no trauma. Ear exam: Anatomically normal. Normal auditory acuity to conversation. Oral exam: No significant oral lesions. He has poor dentition. Neck exam: normal inspection no JVD. No carotid bruit. Trachea is in midline. Respiratory exam: clear to auscultation bilaterally posteriorly and anteriorly with good air movement. No rales, rhonchi or wheezes. Cardiovascular exam: regular rate and rhythm, no murmur or gallop or rub. No precordial lift. No bruits over the major arteries. Chest wall/torso: Anatomically normal. No tenderness, deformity Peripheral Pulses: 2+ throughout. GI/Abdominal exam: normal bowel sounds, soft and nontender, no abdominal bruits or pulsatile masses. Musculoskeletal/Extremities exam: normal inspection without edema or cyanosis. No deformities or trauma. Neurological exam: alert, oriented X3. There is no gross neurologic deficits. His speech is difficult to understand. Psychiatric exam: normal affect, normal mood. Cognitive function is grossly intact. Skin exam: normal color, warm. No rashes or other skin lesions. Result/EKG - Labs CBC & BMP: 06/23/17 11:56 06/23/17 11:56 Lab Results: I have reviewed the past 24 hour labs Labs: Laboratory Results - last 24 hr 06/23/17 06/23/17 06/23/17 11:56 11:56 11:56 WBC 4.1 RBC 4.02 Hgb 8.6 L Hct 28.4 L MCV 70.6 L MCH 21 L MCHC 30.3 L RDW 19.8 H Plt Count 237 MPV 11.1 Neut % (Auto) 46.9 Lymph % (Auto) 29.4 [place] % (Auto) 13.6 H Eos % (Auto) 7.4 Baso % (Auto) 2.5 H Neut # (Auto) 1.9 Lymph # (Auto) 1.2 L [place] # (Auto) 0.6 Eos # (Auto) 0.3 Baso # (Auto) 0.1 Immature Gran % 0.2 Nucleated RBC % 0.0 Immature Gran # 0.01 Nucleated RBCs # 0.00 Immature Plt Fraction 0.0 INR 1.2 PT Patient/Control Mix 12.3 Circ Anticoag PTT 22.7 Sodium 141 Potassium 4.0 Chloride 111 H Carbon Dioxide 22 Anion Gap 12.0 BUN 32 H Creatinine 2.30 H GFR Calculation 30 BUN/Creatinine Ratio 13.00 Glucose 117 H Calculated Osmolality 288.3 Calcium 8.5 Total Bilirubin 0.50 AST 38 H ALT 23 Alkaline Phosphatase 87 Troponin I 0.086 H B-Natriuretic Peptide Total Protein 6.9 Albumin 3.0 L Globulin 3.9 H Albumin/Globulin Ratio 0.7 L Urine Color Urine Appearance Urine pH Ur Specific [place] Urine Protein Urine Glucose (UA) Urine Ketones Urine Blood Urine Nitrate Urine Bilirubin Urine Urobilinogen Urine Leukocytes Urine RBC Urine WBC Ur Squamous Epith Cells Ur Culture Indicated? 06/23/17 06/23/17 11:56 12:46 WBC RBC Hgb Hct MCV MCH MCHC RDW Plt Count MPV Neut % (Auto) Lymph % (Auto) [place] % (Auto) Eos % (Auto) Baso % (Auto) Neut # (Auto) Lymph # (Auto) [place] # (Auto) Eos # (Auto) Baso # (Auto) Immature Gran % Nucleated RBC % Immature Gran # Nucleated RBCs # Immature Plt Fraction INR PT Patient/Control Mix Circ Anticoag PTT Sodium Potassium Chloride Carbon Dioxide Anion Gap BUN Creatinine GFR Calculation BUN/Creatinine Ratio Glucose Calculated Osmolality Calcium Total Bilirubin AST ALT Alkaline Phosphatase Troponin I B-Natriuretic Peptide 3517 H Total Protein Albumin Globulin Albumin/Globulin Ratio Urine Color Yellow Urine Appearance Clear Urine pH 5.0 Ur Specific [place] 1.008 Urine Protein 30 Urine Glucose (UA) Negative Urine Ketones Negative Urine Blood Negative Urine Nitrate Negative Urine Bilirubin Negative Urine Urobilinogen < 2.0 H Urine Leukocytes Negative Urine RBC <1 Urine WBC <1 Ur Squamous Epith Cells Occasional Ur Culture Indicated? Not indicated - Impressions Impressions: ECG was sinus rhythm with PVCs. He has a CT abnormalities and cannot rule out inferior/lateral ischemia. This is similar to prior ECG.
[2017-06-23 18:11] LABS: Troponin I Only 0.076 NG/ML (0.00-0.045)
[2017-06-23] MEDS: hydrALAZINE 25 MG TABLET PO SCH (22:06)
[2017-06-23 22:08] LABS: Troponin I Only 0.088 NG/ML (0.00-0.045)
[2017-06-24 05:38] LABS: Basophils # 0.1 10*3/uL (0.0-0.2); Basophils % 1.7 % (0.0-0.8); Eosinophils # 0.4 10*3/uL (0.0-0.87); Eosinophils % 9.4 % (0.00-10.9); Hematocrit 27.2 VOL% (42.0-52.0); Hemoglobin 8.3 GM/DL (14.0-18.0); Lymphocytes # 1.5 10*3/uL (1.4-4.0); Lymphocytes % 35.6 % (21.2-54.2); Mean Corpuscular HGB Conc 30.5 GM/DL (32-36); Mean Corpuscular Hemoglobin 21 PG (27-34); Mean Corpuscular Volume 69.7 FL (87-102); Monocytes # 0.5 10*3/uL (0.11-0.8); Monocytes % 12.3 % (1.7-12.7); Neutrophils # 1.7 10*3/uL (1.4-7.4); Platelet Count 226 T/CUMM (130-400); Red Cell Distribution Width 19.6 % (9.3-17.3); White Blood Count 4.2 T/CUMM (4-12)
[2017-06-24 06:14] LABS: Calcium 8.3 MG/DL (8.5-10.1); Free T4 (Free Thyroxine) 1.39 NG/DL (0.76-1.46); Magnesium 1.8 MG/DL (1.8-2.4); Osmolality,Calculated 285.4 MOS/KG (273-304); Potassium 3.6 MMOL/L (3.5-5.1); Risk Ratio 1.83; Thyroid Stimulating Hormone 4.38 uIU/ml (0.358-3.74); VLDL CHOLESTEROL 11.4 MG/DL
[2017-06-24 06:23] LABS: Troponin I Only 0.089 NG/ML (0.00-0.045)
[2017-06-24] MEDS: FUROSEMIDE 40 MG/4 ML VIAL IV SCH ×2 (09:17→16:34)
[2017-06-24] MEDS: PANTOPRAZOLE 40 MG TABLET PO SCH (09:53)
[2017-06-24] MEDS: SIMVASTATIN 20 MG TABLET PO SCH (09:53)
[2017-06-24] MEDS: ASPIRIN EC 81 MG TABLET PO SCH (09:53)
[2017-06-24] MEDS: hydrALAZINE 25 MG TABLET PO SCH ×2 (09:53→21:25)
[2017-06-24] MEDS: NEBIVOLOL 10 MG TABLET PO SCH (09:53)
--- NOTE | 2017-06-24 15:27 | Hospitalist Progress Note ---
Hospitalist: Subjective Interval history: Pt is awake & comfortable. Exam - Constitutional Vitals: Period Temp Pulse Resp BP Sys/Dill Pulse Ox Last 24 Hr 97.9 F-98.8 F 16-71 16-59 117-173/84-96 92-100 Exam: General: No Acute Distress HEENT: Normocephalic, atraumatic, Extra ocular movements intact Neck: Supple, No JVD Chest: Clear to auscultation B/L CV: S1 + S2 audible Abd: soft, NT, Non-distended, BS + Ext: No edema Skin: No purpura, bruising or rash Rheumatologic: No Joint deformities Neurologic: Awake and alert Results - Labs CBC & BMP: 06/24/17 05:21 06/24/17 05:21 - Impressions Assessment and Plan : Acute on Ch Systolic Congestive heart failure/cardiomyopathy Status: Acute Current Visit: Yes Baseline ejection fraction is 25% with moderate AR, continue IV Lasix, Bystolic & hydralazine. He is allergic to [id number] Severe pulmonary hypertension/Severe TR Status: Chronic Current Visit: Yes Pulmonary artery pressure estimated at 76 mmHg. FRANNIE on CKD IV Status: Acute Current Visit: Yes Ess HTN Status: Chronic Current Visit: Yes BP controlled
--- NOTE | 2017-06-24 17:10 | Cardiology Progress Note ---
Scott Kraft Vanessa, RN, am scribing for, and in the presence of, Aubrey Cheung MD 17:06. Assessment and Plan - Time spent with patient Time spent with patient: Greater than 30 minutes (1) Congestive heart failure Status: Chronic Assessment and plan: Patient reports he has a history of chronic congestive heart failure and cardiomyopathy. He is apparently followed by a balance bridge inspector he travels from [place], [place], to see patients in [place], [place]. Patient is now admitted with acute CHF exacerbation. Continue IV diuresis. Continue hydralazine. Current Visit: Yes (2) Cardiomyopathy Status: Acute Assessment and plan: Severely reduced systolic function with LVEF 25% by echo in April 2017. Unclear if it is ischemic or nonischemic. Current Visit: Yes (3) Lower extremity edema Status: Acute Assessment and plan: This seems to be reduced and he does not have significant pitting edema upon physical exam today. 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 Stable for d/ c home. Status: Chronic Assessment and plan: Creatinine today is 2.1. Review of previous records indicates this may actually be improved from baseline, which appears to be around 2.4. Nephrology has also followed patient during admission. RICHI inhibitors and ARBs are avoided. Current Visit: No (5) Chronic anemia Status: Chronic Assessment and plan: This is most likely a chronic anemia related to chronic kidney disease. Stable anemia with H&H 8.3/27.2 today. Will need to be monitored. Current Visit: Yes (6) PVCs (premature ventricular contractions) Status: Chronic Assessment and plan: Occasional PVC per telemetry monitoring but no sustained dysrhythmia. Continue Bystolic. Current Visit: Yes (7) Pulmonary hypertension Status: Chronic Assessment and plan: Severe pulmonary hypertension by echo in April 2017 with a PA pressure 76 mmHg. Chronicity and severity of this, however, is unknown Current Visit: Yes (8) Hypertension Status: Chronic Assessment and plan: This is probably a chronic issue. We have room to go up on his hydralazine as well as adding a even amlodipine. Current Visit: Yes Cardiology - PN: Subj Interval history: Director Technical: BRAYDEN Finley (travels to [place], [place]) SUMMARY: Mr. Crespo, 82 year old BM, PMHx CHF, cardiomyopathy, HTN, PVC, CKD IV, chronic anemia, pulm HTN, HLD. [facility] with CHF exacerbation after experiencing worsening of shortness of breath, wheeze, and cough for 2-3 days. Chest x-ray with mild CHF, BNP greater than 3000. Had also had some recent increase in swelling of lower extremities. During previous hospital admission for abdominal pain in April, patient had echo. Echo shows severely reduced systolic function, EF 25%, moderate diastolic dysfunction, mod LA enlargement, right chamber dilation, severe pulm HTN with PAP 76 mmHg. Cardiology was consulted to assist in management of CHF. Patient has been started on IV diuresis with good results. 2016: Patient is sleeping comfortably this afternoon. No acute respiratory distress noted. No acute dyspnea or chest pain. Appetite is excellent. I/O record shows negative fluid balance, and he has no significant lower extremity edema by physical exam. SBP 130-150 mmHg. Tele shows sinus rhythm with occ PVC. Short episode of nonsustained VT. Denies symptoms associated with this. Labs reviewed. Stable anemia H&H 8.3/27.2. Potassium 3.6, magnesium 1.8. Creatinine 2.1. BNP greater than 3700 today. TSH 4.38. Continue to monitor and treat patient for acute CHF exacerbation, cardiomyopathy, hypertension. These are currently stable. ROS: -No chest pain -No dyspnea at rest -Mild orthopnea Patient personally interviewed and examined chart reviewed the presence of Mandy Chavez RN is acting as scribe. Agree with note is submitted. Patient stable feeling better. He has a significant cardiomyopathy with ejection fraction 25% but this is chronic. He had one episode of nonsustained ventricular tachycardia. His lab work continues to show anemia as well as stable electrolytes. His BUN creatinine is improved. BNP remains elevated. We will continue to diurese the patient add low-dose metolazone this evening. Once he agrees maximum hospital benefit to be discharged to follow-up with his primary balance bridge inspector. Exam (Progress Note) - Constitutional Vitals: Period Temp Pulse Resp BP Sys/Dill Pulse Ox Last 24 Hr 97.9 F-98.8 F 16-71 16-59 117-173/84-96 92-100 Exam: General appearance: normal weight, no acute distress, sleeping comfortably this morning Head exam: normal inspection, atraumatic Eye exam: Pupils are equal and reactive. EOMI. There is no trauma. Ear exam: Anatomically normal. Normal auditory acuity to conversation. Oral exam: No significant oral lesions. He has poor dentition. Neck exam: normal inspection no JVD. No carotid bruit. Trachea is in midline. Respiratory exam: clear to auscultation bilaterally posteriorly and anteriorly with good air movement. No rales, rhonchi or wheezes. Cardiovascular exam: regular rate and rhythm, no murmur or gallop or rub. No precordial lift. No bruits over the major arteries. Chest wall/torso: Anatomically normal. No tenderness, deformity Peripheral Pulses: 2+ throughout. GI/Abdominal exam: normal bowel sounds, soft and nontender, no abdominal bruits or pulsatile masses. Musculoskeletal/Extremities exam: normal inspection without edema or cyanosis. No deformities or trauma. Neurological exam: alert, oriented X3. There is no gross neurologic deficits. No resting tremor. His speech is difficult to understand. Psychiatric exam: normal affect, normal mood. Cognitive function is grossly intact. Skin exam: normal color, warm, dry. No rashes or other skin lesions. Result/EKG - Labs CBC & BMP: 06/24/17 05:21 06/24/17 05:21 Lab Results: I have reviewed the past 24 hour labs Labs: Laboratory Results - last 24 hr 06/23/17 06/23/17 06/24/17 17:15 21:17 05:21 WBC 4.2 RBC 3.90 Hgb 8.3 L Hct 27.2 L MCV 69.7 L MCH 21 L MCHC 30.5 L RDW 19.6 H Plt Count 226 MPV 11.0 Neut % (Auto) 41.0 Lymph % (Auto) 35.6 Harding % (Auto) 12.3 Eos % (Auto) 9.4 Baso % (Auto) 1.7 H Neut # (Auto) 1.7 Lymph # (Auto) 1.5 Harding # (Auto) 0.5 Eos # (Auto) 0.4 Baso # (Auto) 0.1 Immature Gran % 0.0 Nucleated RBC % 0.0 Immature Gran # 0.00 Nucleated RBCs # 0.00 Immature Plt Fraction 0.0 Sodium Potassium Chloride Carbon Dioxide Anion Gap BUN Creatinine GFR Calculation BUN/Creatinine Ratio Glucose Calculated Osmolality Calcium Magnesium Total Creatine Kinase 210 185 CK-MB (CK-2) 2.9 2.6 Troponin I 0.076 H 0.088 H B-Natriuretic Peptide Triglycerides Cholesterol LDL Cholesterol VLDL Cholesterol HDL Cholesterol Heart Disease Risk Ratio Free T4 TSH 3rd Generation 06/24/17 06/24/17 06/24/17 05:21 05:21 05:21 WBC RBC Hgb Hct MCV MCH MCHC RDW Plt Count MPV Neut % (Auto) Lymph % (Auto) Harding % (Auto) Eos % (Auto) Baso % (Auto) Neut # (Auto) Lymph # (Auto) Harding # (Auto) Eos # (Auto) Baso # (Auto) Immature Gran % Nucleated RBC % Immature Gran # Nucleated RBCs # Immature Plt Fraction Sodium 140 Potassium 3.6 Chloride 107 Carbon Dioxide 24 Anion Gap 12.6 BUN 30 H Creatinine 2.10 H GFR Calculation 34 BUN/Creatinine Ratio 14.00 Glucose 108 H Calculated Osmolality 285.4 Calcium 8.3 L Magnesium 1.8 Total Creatine Kinase 183 CK-MB (CK-2) 2.6 Troponin I 0.089 H B-Natriuretic Peptide 3744 H Triglycerides 57 Cholesterol 141 LDL Cholesterol 53.0 VLDL Cholesterol 11.4 HDL Cholesterol 77 H Heart Disease Risk Ratio 1.83 Free T4 1.39 TSH 3rd Generation 4.380 H - Diagnostic Findings Procedure: Chest x-ray: image reviewed by me, report reviewed by me - EKG EKG results: interpreted by me, no acute changes EKG shows: sinus rhythm (HR 70, occasional PVC; 12 beat run NSVT overnight) Jonatan Kraft John Timothy, MD, personally performed the services described in this documentation, ascribed by Mandy Chavez RN in my presence, and it is both accurate and complete 709 .
--- NOTE | 2017-06-24 19:32 | Order Completion Report ---
See report scanned to EMR
[2017-06-25 05:45] LABS: Basophils # 0.1 10*3/uL (0.0-0.2); Basophils % 1.6 % (0.0-0.8); Eosinophils # 0.5 10*3/uL (0.0-0.87); Eosinophils % 9.2 % (0.00-10.9); Hematocrit 27.9 VOL% (42.0-52.0); Hemoglobin 8.4 GM/DL (14.0-18.0); Immature Granulocytes % 0.2 %; Immature Granulocytes Absolute 0.01 #; Lymphocytes # 1.6 10*3/uL (1.4-4.0); Lymphocytes % 32.5 % (21.2-54.2); Mean Corpuscular HGB Conc 30.1 GM/DL (32-36); Mean Corpuscular Hemoglobin 21 PG (27-34); Mean Corpuscular Volume 70.1 FL (87-102); Mean Platelet Volume 10.5 FL (9.6-12.0); Monocytes # 0.7 10*3/uL (0.11-0.8); Monocytes % 14.1 % (1.7-12.7); Neutrophils # 2.1 10*3/uL (1.4-7.4); Neutrophils % 42.4 % (38.7-73.9); Platelet Count 219 T/CUMM (130-400); Red Blood Count 3.98 MC/CUMM (3.8-5.5); Red Cell Distribution Width 19.3 % (9.3-17.3); White Blood Count 4.9 T/CUMM (4-12)
[2017-06-25 06:12] LABS: Calcium 8.4 MG/DL (8.5-10.1); Osmolality,Calculated 280.7 MOS/KG (273-304); Potassium 3.9 MMOL/L (3.5-5.1)
[2017-06-25] MEDS: SIMVASTATIN 20 MG TABLET PO SCH (08:38)
[2017-06-25] MEDS: PANTOPRAZOLE 40 MG TABLET PO SCH (08:38)
[2017-06-25] MEDS: hydrALAZINE 25 MG TABLET PO SCH ×2 (08:38→20:47)
[2017-06-25] MEDS: NEBIVOLOL 10 MG TABLET PO SCH (08:38)
[2017-06-25] MEDS: ASPIRIN EC 81 MG TABLET PO SCH (08:38)
[2017-06-25] MEDS ORDERED: metOLazone 5 MG TABLET PO SCH (09:00)
[2017-06-25] MEDS: FUROSEMIDE 40 MG/4 ML VIAL IV SCH ×2 (09:09→16:42)
[2017-06-25] MEDS: ALBUTEROL/IPRATROPIUM 3 ML NEB RESP TX SCH ×4 (10:51→23:55)
--- NOTE | 2017-06-25 11:33 | Cardiology Progress Note ---
Assessment and Plan (1) Congestive heart failure Status: Chronic Assessment and plan: Chronic history of this with exacerbation. Will continue treated medically try continue to diurese the patient. I think some of his cough though may be some central issues including bronchitis. Current Visit: Yes (2) Cardiomyopathy Status: Chronic Assessment and plan: Severely reduced ejection fraction but I think this is chronic. He is followed by top printing press operator in [facility] who comes in for mobile. Current Visit: Yes (3) Lower extremity edema Status: Acute Assessment and plan: This is resolved at this time. 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 Stable for d/ c home. Status: Chronic Assessment and plan: This can be a chronic persistent issue for this patient. Current Visit: No (5) Chronic anemia Status: Chronic Assessment and plan: This is most likely a chronic anemia related to chronic kidney disease. He has anemia though is stable. Current Visit: Yes (6) PVCs (premature ventricular contractions) Status: Chronic Assessment and plan: Occasional PVC per telemetry monitoring but no sustained dysrhythmia. Did have 1 nonsustained ventricular tachycardia. Continue Bystolic. Current Visit: Yes (7) Pulmonary hypertension Status: Chronic Assessment and plan: Severe pulmonary hypertension by echo in April 2017 with a PA pressure 76 mmHg. Chronicity and severity of this, however, is unknown Current Visit: Yes (8) Hypertension Status: Chronic Assessment and plan: Not adequately controlled will go up on his hydralazine. Current Visit: Yes Cardiology - PN: Subj Interval history: Patient clinically doing well from cardiac standpoint. Still having some cough and I am concerned being productive and it may be bronchitis. I do not think is all from his CHF. Certainly his output is been greater than his input. We are continuing this diuresis. He is apparently sleeping well he is been sleepy every time I come into the room. They will continue present medication chest x-ray tomorrow. I think maybe start the patient on empiric antibiotic to cover him for a bronchitis may be of benefit at this time. Exam (Progress Note) - Constitutional Vitals: Period Temp Pulse Resp BP Sys/Dill Pulse Ox Last 24 Hr 97.6 F-99 F 51-78 16-20 126-168/78-91 2-98 Exam: General appearance: normal weight, no acute distress, sleeping comfortably this morning Head exam: normal inspection, atraumatic Eye exam: Pupils are equal and reactive. EOMI. There is no trauma. Ear exam: Anatomically normal. Normal auditory acuity to conversation. Oral exam: No significant oral lesions. He has poor dentition. Neck exam: normal inspection no JVD. No carotid bruit. Trachea is in midline. Respiratory exam: clear to auscultation bilaterally posteriorly and anteriorly with good air movement peripherally. He continues to have a lot of central congestion in the bronchial region and trachea. Cardiovascular exam: regular rate and rhythm, no murmur but has a gallop. No precordial lift. No bruits over the major arteries. Chest wall/torso: Anatomically normal. No tenderness, deformity Peripheral Pulses: 2+ throughout. GI/Abdominal exam: normal bowel sounds, soft and nontender, no abdominal bruits or pulsatile masses. Musculoskeletal/Extremities exam: normal inspection without edema or cyanosis. No deformities or trauma. Neurological exam: alert, oriented X3. There is no gross neurologic deficits. His speech is difficult to understand. Psychiatric exam: normal affect, normal mood. Cognitive function is grossly intact. Skin exam: Warm with good turgor, no rashes. Result/EKG - Labs CBC & BMP: 06/25/17 05:05 06/25/17 05:05 Lab Results: I have reviewed the past 24 hour labs Labs: Laboratory Results - last 24 hr 06/25/17 06/25/17 05:05 05:05 WBC 4.9 RBC 3.98 Hgb 8.4 L Hct 27.9 L MCV 70.1 L MCH 21 L MCHC 30.1 L RDW 19.3 H Plt Count 219 MPV 10.5 Neut % (Auto) 42.4 Lymph % (Auto) 32.5 Hartley % (Auto) 14.1 H Eos % (Auto) 9.2 Baso % (Auto) 1.6 H Neut # (Auto) 2.1 Lymph # (Auto) 1.6 Hartley # (Auto) 0.7 Eos # (Auto) 0.5 Baso # (Auto) 0.1 Immature Gran % 0.2 Nucleated RBC % 0.0 Immature Gran # 0.01 Nucleated RBCs # 0.00 Immature Plt Fraction 0.0 Sodium 138 Potassium 3.9 Chloride 103 Carbon Dioxide 29 Anion Gap 9.9 BUN 32 H Creatinine 2.20 H GFR Calculation 32 BUN/Creatinine Ratio 14.00 Glucose 75 Calculated Osmolality 280.7 Calcium 8.4 L - Impressions Impressions: Telemetry was sinus rhythm with one nonsustained ventricular tachycardia. Does have some PACs.
--- NOTE | 2017-06-25 14:31 | Hospitalist Progress Note ---
Hospitalist: Subjective Interval history: Patient awake and comfortable, has some cough Exam - Constitutional Vitals: Period Temp Pulse Resp BP Sys/Dill Pulse Ox Last 24 Hr 96.1 F-99 F 51-78 18-24 124-168/78-91 2-100 Exam: General: No Acute Distress HEENT: Normocephalic, atraumatic, Extra ocular movements intact Neck: Supple, No JVD Chest: Clear to auscultation B/L CV: S1 + S2 audible Abd: soft, NT, Non-distended, BS + Ext: No edema Skin: No purpura, bruising or rash Rheumatologic: No Joint deformities Neurologic: Awake and alert Results - Labs CBC & BMP: 06/25/17 05:05 06/25/17 05:05 - Impressions Assessment and Plan : Acute on Ch Systolic Congestive heart failure/cardiomyopathy Status: Acute Current Visit: Yes Baseline ejection fraction is 25% with moderate AR, continue IV Lasix, Bystolic & hydralazine. He is allergic to RICHI-I Acute bronchitis Status: Acute Current Visit: Yes Continue Levaquin and DuoNebs Severe pulmonary hypertension/Severe TR Status: Chronic Current Visit: Yes Pulmonary artery pressure estimated at 76 mmHg. FRANNIE on CKD IV Status: Acute Current Visit: Yes Ess HTN Status: Chronic Current Visit: Yes BP controlled
[2017-06-25] MEDS: LEVOFLOXACIN 500 MG TABLET PO SCH (14:50)
[2017-06-26] MEDS: ALBUTEROL/IPRATROPIUM 3 ML NEB RESP TX SCH ×6 (03:14→22:58)
--- NOTE | 2017-06-26 09:28 | XRay Report ---
XR chest 1V Indication: Cough, congestive heart failure Comparison: 23 June 2017 Findings: The heart and mediastinum are stable in size and configuration. The pulmonary vascularity is normal in caliber. Left lower lung retrocardiac density is present similar to previous exam. No other lung infiltrates, effusions, pneumothorax or other abnormality is demonstrated. Impression: No significant changes. PROCEDURE INTERPRETED AT [facility] DEPARTMENT OF RADIOLOGY Final Report Signed by: Dr. José Miguel Peterson
[2017-06-26] MEDS: NEBIVOLOL 10 MG TABLET PO SCH (09:33)
[2017-06-26] MEDS: hydrALAZINE 25 MG TABLET PO SCH ×2 (09:33→21:16)
[2017-06-26] MEDS: SIMVASTATIN 20 MG TABLET PO SCH (09:34)
[2017-06-26] MEDS: ASPIRIN EC 81 MG TABLET PO SCH (09:34)
[2017-06-26] MEDS: PANTOPRAZOLE 40 MG TABLET PO SCH (09:34)
[2017-06-26] MEDS: LEVOFLOXACIN 500 MG TABLET PO SCH ×2 (09:34→13:34)
[2017-06-26] MEDS: FUROSEMIDE 40 MG/4 ML VIAL IV SCH ×2 (10:05→16:42)
--- NOTE | 2017-06-26 14:25 | Cardiology Progress Note ---
Assessment and Plan (1) Congestive heart failure Status: Chronic Assessment and plan: Patient has cardiomyopathy and has chronic history of congestive heart failure. Clinically this is improved. Current Visit: Yes (2) Cardiomyopathy Status: Chronic Assessment and plan: Severely reduced ejection fraction but I think this is chronic. He is followed for heart failure with a microfilmer from [place]. Current Visit: Yes (3) Lower extremity edema Status: Resolved Assessment and plan: This is resolved at this time. 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 Stable for d/ c home. Status: Chronic Assessment and plan: This is probably a chronic issue for the patient. Current Visit: No (5) Chronic anemia Status: Chronic Assessment and plan: This is most likely a chronic anemia related to chronic kidney disease. He has anemia though is stable. Current Visit: Yes (6) PVCs (premature ventricular contractions) Status: Chronic Assessment and plan: Occasional PVC per telemetry monitoring but no sustained dysrhythmia. This is stable. Current Visit: Yes (7) Pulmonary hypertension Status: Chronic Assessment and plan: Severe pulmonary hypertension by echo in April 2017 with a PA pressure 76 mmHg. Chronicity and severity of this, however, is unknown Current Visit: Yes (8) Hypertension Status: Chronic Assessment and plan: Not adequately controlled will go up on his present medical regimen. Current Visit: Yes Cardiology - PN: Subj Interval history: Heart Mr. Krishnamurthy is doing better in general. He is not having as much cough. Certainly difficult to get a good history from but he certainly appears to be better today. He has had some low-grade temperature. He is on oral Levaquin. He has one telemetry strip we had a period of time what appeared to be almost atrial tachycardia on that came and went. His rhythm for the most part is been sinus with frequent PACs and some PVCs. He has had no significant high-grade dysrhythmias. Exam (Progress Note) - Constitutional Vitals: Period Temp Pulse Resp BP Sys/Dill Pulse Ox Last 24 Hr 97.4 F-100.2 F 60-112 15-22 111-147/68-75 89-99 Exam: General appearance: normal weight, no acute distress, sleeping comfortably this morning HEENT: Atraumatic normocephalic. Poor dentition Neck exam: normal inspection no JVD. No carotid bruit. Trachea is in midline. Respiratory exam: His central congestion is much improved today. No gross rales or wheezing or rhonchi. Cardiovascular exam: regular rate and rhythm, no murmur but has a gallop. No precordial lift. No bruits over the major arteries. Chest wall/torso: Anatomically normal. No tenderness, deformity Peripheral Pulses: 2+ throughout. GI/Abdominal exam: normal bowel sounds, soft and nontender, no abdominal bruits or pulsatile masses. Musculoskeletal/Extremities exam: normal inspection without edema or cyanosis. No deformities or trauma. Neurological exam: alert, oriented X3. There is no gross neurologic deficits. His speech is difficult to understand. Psychiatric exam: normal affect, normal mood. Cognitive function is grossly intact. Skin exam: Warm with good turgor, no rashes. Result/EKG - Labs CBC & BMP: 06/25/17 05:05 06/25/17 05:05 - Impressions Impressions: Telemetry sinus rhythm with some episodes of most atrial tachycardia cannot rule out atrial fib.
--- NOTE | 2017-06-26 16:14 | Hospitalist Progress Note ---
Hospitalist: Subjective Interval history: Patient is awake and breathing is comfortable Exam - Constitutional Vitals: Period Temp Pulse Resp BP Sys/Dill Pulse Ox Last 24 Hr 98.8 F-100.2 F 65-112 15-22 111-147/68-70 89-99 Exam: General: No Acute Distress HEENT: Normocephalic, atraumatic, Extra ocular movements intact Neck: Supple, No JVD Chest: Clear to auscultation B/L CV: S1 + S2 audible Abd: soft, NT, Non-distended, BS + Ext: No edema Skin: No purpura, bruising or rash Rheumatologic: No Joint deformities Neurologic: Awake and alert Results - Labs CBC & BMP: 06/25/17 05:05 06/25/17 05:05 - Impressions Assessment and Plan : Acute on Ch Systolic Congestive heart failure/cardiomyopathy Status: Acute Current Visit: Yes Baseline ejection fraction is 25% with moderate AR, continue IV Lasix, Bystolic & hydralazine. He is allergic to RICHI-I Acute bronchitis Status: Acute Current Visit: Yes Continue Levaquin and DuoNebs Severe pulmonary hypertension/Severe TR Status: Chronic Current Visit: Yes Pulmonary artery pressure estimated at 76 mmHg. FRANNIE on CKD IV Status: Acute Current Visit: Yes Ess HTN Status: Chronic Current Visit: Yes BP controlled
[2017-06-27] MEDS: ALBUTEROL/IPRATROPIUM 3 ML NEB RESP TX SCH ×5 (03:19→19:25)
[2017-06-27] MEDS ORDERED: DILTIAZEM INJ 100 MG in SODIUM CHLORIDE 0.9% 100 ML IV SCH (04:30)
[2017-06-27] MEDS: SIMVASTATIN 20 MG TABLET PO SCH (08:25)
[2017-06-27] MEDS: PANTOPRAZOLE 40 MG TABLET PO SCH (08:25)
[2017-06-27] MEDS: NEBIVOLOL 10 MG TABLET PO SCH (08:25)
[2017-06-27] MEDS: hydrALAZINE 25 MG TABLET PO SCH ×2 (08:25→20:16)
[2017-06-27] MEDS: ASPIRIN EC 81 MG TABLET PO SCH (08:25)
[2017-06-27] MEDS: FUROSEMIDE 40 MG/4 ML VIAL IV SCH ×2 (08:27→16:37)
--- NOTE | 2017-06-27 11:02 | Hospitalist Progress Note ---
Assessment and Plan - Time spent with patient Time spent with patient: Less than 30 minutes (1) Atrial fibrillation with RVR Status: Acute Assessment and plan: 06/27/17 - Reported at 4:30 a.m. patient had an episode of A-Fib with RVR and started on Cardizem infusion Currently on 5mg/hr and Afib is at a controlled rate - will continue to monitor Cardiology is following and greatly appreciate their assistance with care. Current Visit: Yes (2) Acute bronchitis Status: Acute Assessment and plan: 06/27/17 - continue levaquin and duonebs Current Visit: Yes (3) Hypertension Status: Chronic Assessment and plan: 06/27/17 - continue current recommended treatment per cardiology and continue to monitor. Current Visit: Yes (4) Cardiomyopathy Status: Chronic Current Visit: Yes (5) Chronic anemia Status: Chronic Assessment and plan: 06/27/17 - stable continue to monitor Current Visit: Yes (6) Congestive heart failure Status: Chronic Assessment and plan: 06/27/17 - continue to monitor Current Visit: Yes Hospitalist: Subjective Interval history: Mr Crespo seen and chart reviewed. He states he is "not sick" and feels "fine ". He reports a good appetite. He denies chest pain, shortness of breath, cough, fever or chills. It was reported the patient had an episode of AFib w/ RVR and was started on Cardizem infusion. He is at 5mg/hr for infusion and his heart rate is now controlled. Exam - Constitutional Vitals: Period Temp Pulse Resp BP Sys/Dill Pulse Ox Last 24 Hr 99.4 F-100.4 F 64-137 15-20 118-142/65-83 94-100 General appearance: normal weight, no acute distress - Head Head exam: Present: normal inspection - Eye Eye exam: Present: EOMI Pupils: Present: ADARSH - Neck Neck exam: Present: normal inspection. Absent: thyromegaly - Respiratory Respiratory exam: Present: clear to auscultation bilaterally. Absent: rales, rhonchi, stridor - Cardiovascular Cardiovascular exam: Present: irregular rhythm - GI/Abdominal GI/Abdominal exam: Present: normal bowel sounds, soft. Absent: tenderness, rebound - Extremities Exam Extremities exam: Present: normal inspection, full ROM. Absent: edema - Psychiatric Psychiatric exam: Present: normal affect, normal mood. Absent: agitated, anxious - Skin Skin exam: Present: normal color, warm, dry Results - Labs CBC & BMP: 06/25/17 05:05 06/25/17 05:05 Lab Results: I have reviewed the past 24 hour labs
[2017-06-27] MEDS: LEVOFLOXACIN 500 MG TABLET PO SCH (12:09)
--- NOTE | 2017-06-27 17:17 | Cardiology Progress Note ---
Scott Kraft Vanessa RN, am scribing for, and in the presence of, Santos Lopez MD 17 :07. Assessment and Plan - Time spent with patient Time spent with patient: Greater than 30 minutes (1) Congestive heart failure Status: Chronic Assessment and plan: 82 year old BM, followed by cardiology in [place], [place]. PMHx of cardiomyopathy ( current EF 25%), severe pulm HTN, CHF, CKD IV, HLD. Now admitted with CHF exacerbation and has responded to IV diuretics with good results. Has also been having NSVT, PAT, episode of atrial fib RVR. Echo: LVEF 25%, mild diastolic dysfunction, mild biatrial dilation, moderate TR , PAP 61 mmHg EKG: SR 80s w/ PAC and PVD; transient PAT, atrial fib RVR 140s, QTc 397 ms -CHF-EF 25%. Continue IV diuresis. 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 fib. Stop IV Cardizem, severe systolic dysfunction. Start p.o. amiodarone load 400 mg twice daily. Heart rate is overall better controlled. No history of lung disease. -CHADSVASC 4. Start Eliquis 5 mg twice daily. Chronic anemia, check stool guaiac, monitor carefully for blood loss -Bronchitis-nebulizer tx per attending physician. Stop Levaquin today, as we are starting amiodarone. We are quite limited with antiarrhythmic options due to his comorbidities -Hypertension-BP controlled today. -CKD-RICHI inhibitors / ARBs avoided -Continue statin, low dose ASA, BB Current Visit: Yes (2) Cardiomyopathy Status: Chronic Assessment and plan: SEE PLAN OF CARE LISTED ABOVE. Current Visit: Yes (3) Lower extremity edema Status: Resolved Assessment and plan: SEE PLAN OF CARE LISTED ABOVE. 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 Stable for d/ c home. Status: Chronic Assessment and plan: SEE PLAN OF CARE LISTED ABOVE. Current Visit: No (5) Chronic anemia Status: Chronic Assessment and plan: SEE PLAN OF CARE LISTED ABOVE. Current Visit: Yes (6) PVCs (premature ventricular contractions) Status: Chronic Assessment and plan: SEE PLAN OF CARE LISTED ABOVE. Current Visit: Yes (7) Pulmonary hypertension Status: Chronic Assessment and plan: SEE PLAN OF CARE LISTED ABOVE. Current Visit: Yes Cardiology - PN: Subj Interval history: Registered Nurse Float Pool: BRAYDEN Finley SUMMARY: 82 year old BM, PMHx CHF, cardiomyopathy, CKD IV,, pulmonary HTN, HLD, chronic anemia. Patient reports he is followed by a opener tender in [place], [place], who travels from [place], [place]. Admitted [facility] telemetry on 06/23 with CHF exacerbation. Echocardiogram during hospital admission for abdominal pain in April show serum fairly reduced systolic function, EF 25%, moderate diastolic dysfunction, moderate LA enlargement, severe pulm HTN with PAP 76 mmHg. Cardiology was consulted to assist in management of CHF. Since admission, patient has been started on IV diuresis, medication adjustments, and has had good results. Patient has had some self sustained episodes of NSVT since admission. June: Patient is in bed this afternoon. Does have some rest mild shortness of breath at rest. Feels his breathing today is worse, but he is no acute respiratory distress. No chest pain. No labs available for review today. Appears he is diuresing well with negative fluid balance. Overnight tele shows episode of PAT with burst of atrial fib RVR, 140s before converting to SR 70s with PVC/PAC. SBP 120-130 mmHg. Febrile overnight as well with temp 100.4F. Patient is on IV Cardizem infusion. We will continue to monitor and treat patient for CHF, cardiomyopathy, atrial dysrhythmia. Patient currently stable. ROS: -Denies chest pain, heaviness, or palpitations. -Mild dyspnea at rest, no overt orthopnea -No abd pain, N/V. Appetite is good Exam (Progress Note) - Constitutional Vitals: Period Temp Pulse Resp BP Sys/Dill Pulse Ox Last 24 Hr 98.9 F-100.4 F 64-137 15-20 118-142/55-83 95-100 Exam: General appearance: normal weight, no acute distress, pleasant and cooperative. Head exam: normal inspection, atraumatic Eye exam: Pupils are equal and reactive. EOMI. There is no trauma. Ear exam: Anatomically normal. Normal auditory acuity to conversation. Oral exam: No significant oral lesions. Very poor dentition. Neck exam: normal inspection no JVD. No carotid bruit. Trachea is in midline. Respiratory exam: clear to auscultation bilaterally posteriorly and anteriorly with good air movement. No rales, rhonchi or wheezes. Cardiovascular exam: regular rate and rhythm, no murmur or gallop or rub. No precordial lift. Peripheral Pulses: 2+ throughout. GI/Abdominal exam: normal bowel sounds, soft and nontender, no abdominal bruits or pulsatile masses. Musculoskeletal/Extremities exam: normal inspection without edema or cyanosis. No deformities or trauma. Neurological exam: alert, oriented X3. There is no gross neurologic deficits. No resting tremor. His speech is difficult to understand. Psychiatric exam: normal affect, normal mood. Cognitive function is grossly intact. Patient does not appear anxious or depressed. Skin exam: normal color, warm, dry. No rashes or other skin lesions. Result/EKG - Labs CBC & BMP: 06/25/17 05:05 06/25/17 05:05 Lab Results: I have reviewed the past 24 hour labs - Diagnostic Findings Procedure: Chest x-ray: image reviewed by me, report reviewed by me - EKG EKG results: interpreted by me, no acute changes EKG shows: sinus rhythm (Multifocal PVC, PAC; transient PAT with episode of atrial fib RVR 140s overnight) IJohn Attila, MD, personally performed the services described in this documentation, ascribed by Mandy Chavez RN in my presence, and it is both accurate and complete .
[2017-06-27] MEDS: APIXABAN 5 MG TABLET PO SCH (20:16)
[2017-06-27] MEDS: AMIODARONE 200 MG TABLET PO SCH (20:16)
[2017-06-28] MEDS: ALBUTEROL/IPRATROPIUM 3 ML NEB RESP TX SCH ×7 (00:01→22:59)
--- NOTE | 2017-06-28 04:43 | Order Completion Report ---
See report scanned to EMR
[2017-06-28 06:46] LABS: Basophils % 0.6 % (0.0-0.8); Eosinophils # 0.1 10*3/uL (0.0-0.87); Eosinophils % 1.2 % (0.00-10.9); Hematocrit 26.7 VOL% (42.0-52.0); Hemoglobin 8.2 GM/DL (14.0-18.0); Immature Granulocytes % 0.2 %; Immature Granulocytes Absolute 0.01 #; Lymphocytes # 0.7 10*3/uL (1.4-4.0); Lymphocytes % 14.7 % (21.2-54.2); Mean Corpuscular HGB Conc 30.7 GM/DL (32-36); Mean Corpuscular Hemoglobin 21 PG (27-34); Mean Corpuscular Volume 69.2 FL (87-102); Mean Platelet Volume 11.1 FL (9.6-12.0); Monocytes # 0.7 10*3/uL (0.11-0.8); Monocytes % 14.1 % (1.7-12.7); Neutrophils # 3.5 10*3/uL (1.4-7.4); Neutrophils % 69.2 % (38.7-73.9); Platelet Count 231 T/CUMM (130-400); Red Blood Count 3.86 MC/CUMM (3.8-5.5); Red Cell Distribution Width 19.2 % (9.3-17.3)
[2017-06-28 07:09] LABS: Calcium 8.3 MG/DL (8.5-10.1); Magnesium 1.4 MG/DL (1.8-2.4); Osmolality,Calculated 282.7 MOS/KG (273-304); Potassium 3.5 MMOL/L (3.5-5.1)
[2017-06-28] MEDS ORDERED: MAGNESIUM SULF RIDER 2 GM in PREMIX 1 EACH IV PRN (07:46)
[2017-06-28] MEDS ORDERED: MAGNESIUM SULF RIDER 4 GM in PREMIX 1 EACH IV PRN (07:46)
[2017-06-28] MEDS: FUROSEMIDE 40 MG/4 ML VIAL IV SCH ×2 (08:00→17:19)
[2017-06-28] MEDS: hydrALAZINE 25 MG TABLET PO SCH ×2 (09:34→20:09)
[2017-06-28] MEDS: NEBIVOLOL 10 MG TABLET PO SCH (09:34)
[2017-06-28] MEDS: AMIODARONE 200 MG TABLET PO SCH ×2 (09:35→20:09)
[2017-06-28] MEDS: APIXABAN 5 MG TABLET PO SCH ×2 (09:35→20:09)
[2017-06-28] MEDS: SIMVASTATIN 20 MG TABLET PO SCH (09:35)
[2017-06-28] MEDS: ASPIRIN EC 81 MG TABLET PO SCH (09:35)
[2017-06-28] MEDS: PANTOPRAZOLE 40 MG TABLET PO SCH (09:35)
--- NOTE | 2017-06-28 11:19 | Hospitalist Progress Note ---
<Mariel Parker - Last Filed: 06/28/17 11:16> Assessment and Plan - Time spent with patient Time spent with patient: Less than 30 minutes (1) Atrial fibrillation with RVR Status: Acute Assessment and plan: 06/28/17 Patient has been converted from Cardizem infusion to Amiodarone p.o., heart rate is better controlled at present acute bronchitis: levaquin stopped per recommendation of cardiology related to started Amiodarone; continue duonebs Hypertension: better controlled; continue current medical management Chronic Anemia: H&H stable 8.2/26.7 slight decrease from 8.4/27.9 - continue to monitor closely hypomagnesium: magnesium replacement ordered CHF: continue to monitor repeat a.m. labs PT to continue to work with patient due to generalized weakness Cardiology is following and appreciate recommendations with care. Further Hospitalist recommendations to follow per Dr Razo. 06/27/17 - Reported at 4:30 a.m. patient had an episode of A-Fib with RVR and started on Cardizem infusion Currently on 5mg/hr and Afib is at a controlled rate - will continue to monitor Cardiology is following and greatly appreciate their assistance with care. Current Visit: Yes (2) Acute bronchitis Status: Acute Assessment and plan: 06/28/17 - levaquin discontinued d/t amiodarone started. continue duonebs 06/27/17 - continue levaquin and duonebs Current Visit: Yes (3) Hypertension Status: Chronic Assessment and plan: 06/27/17 - continue current recommended treatment per cardiology and continue to monitor. Current Visit: Yes (4) Cardiomyopathy Status: Chronic Current Visit: Yes (5) Chronic anemia Status: Chronic Assessment and plan: 06/27/17 - stable continue to monitor Current Visit: Yes (6) Congestive heart failure Status: Chronic Assessment and plan: 06/28/17 BNP improving down to 1432 from ---<3744 06/27/17 - continue to monitor Current Visit: Yes Hospitalist: Subjective Interval history: Mr Crespo seen and chart reviewed. He reports feeling better this morning. He appears more alert and energetic this morning. He denies shortness of breath, chest pain, fever, or chills. He is currently receiving IV Magnesium replacement (Mag 1.4 on labs). PT evaluated and reported to the nurse, patient is weak and will need physical therapy to get strong enough to ambulate without falling, "he is too weak and Unsteady". Exam - Constitutional Vitals: Period Temp Pulse Resp BP Sys/Dill Pulse Ox Last 24 Hr 97.8 F-99.4 F 59-98 15-20 107-133/55-93 94-100 General appearance: normal weight, no acute distress - Head Head exam: Present: normal inspection - Eye Eye exam: Present: EOMI Pupils: Present: ADARSH - Neck Neck exam: Present: normal inspection. Absent: thyromegaly - Respiratory Respiratory exam: Present: clear to auscultation bilaterally. Absent: rhonchi, stridor, wheezes - Cardiovascular Cardiovascular exam: Present: irregular rhythm - GI/Abdominal GI/Abdominal exam: Present: normal bowel sounds, soft. Absent: tenderness, rebound - Extremities Exam Extremities exam: Present: normal inspection, full ROM. Absent: edema - Neurological Exam Neurological exam: Present: alert, oriented X3 - Psychiatric Psychiatric exam: Present: normal affect, normal mood. Absent: agitated, anxious - Skin Skin exam: Present: normal color, warm, dry Results - Labs CBC & BMP: 06/28/17 04:54 06/28/17 04:54 Lab Results: I have reviewed the past 24 hour labs <Lynda Razo - Last Filed: 06/28/17 15:25> Hospitalist: Subjective Interval history: Patient is pleasant but weak. Unfortunately his insurance will not qualify him for a swing bed. We will continue with PT and consider NH placement at some point Exam - Constitutional Vitals: Period Temp Pulse Resp BP Sys/Dill Pulse Ox Last 24 Hr 97.8 F-99.4 F 59-98 15-20 99-133/60-93 94-99 Results - Labs CBC & BMP: 06/28/17 04:54 06/28/17 04:54
--- NOTE | 2017-06-28 18:15 | Cardiology Progress Note ---
Scott Kraft Vanessa, RN, am scribing for, and in the presence of, Santos Lopez MD 18 :15. Assessment and Plan - Time spent with patient Time spent with patient: Greater than 30 minutes (1) Congestive heart failure Status: Chronic Assessment and plan: 82 year old BM, followed by cardiology in [place], [place]. PMHx of cardiomyopathy ( current EF 25%), severe pulm HTN, CHF, CKD IV, HLD. Now admitted with CHF exacerbation and has responded to IV diuretics with good results. Has also been having NSVT, PAT, episode of atrial fib RVR. Echo: LVEF 25%, mild diastolic dysfunction, mild biatrial dilation, moderate TR , PAP 61 mmHg EKG: SR 80s w/ PAC and PVC; transient PAT/MAT, atrial fib RVR 140s, QTc 421 -CHF-EF 25%. Continue IV diuresis. Symptoms improved. Remains quite debilitated. 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 Continue amiodarone 400 mg p.o. twice daily. Heart rate remains controlled today. No history of lung disease. Continue Eliquis. CHADSVASC 4. Monitor closely for bleeding with Hx chronic anemia. -Bronchitis-nebulizer tx per attending physician. Levaquin was stopped due to initiation of amiodarone. Nort septic. Antiarrhythmic options are quite limited due to comorbidities. -Hypertension-BP remains controlled today. -CKD-avoiding RICHI inhibitors / ARBs -Continue statin, low dose ASA, BB -PT consult today to evaluate and treat Current Visit: Yes (2) Cardiomyopathy Status: Chronic Assessment and plan: SEE PLAN OF CARE LISTED ABOVE. Current Visit: Yes (3) Lower extremity edema Status: Resolved Assessment and plan: SEE PLAN OF CARE LISTED ABOVE. 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 Stable for d/ c home. Status: Chronic Assessment and plan: SEE PLAN OF CARE LISTED ABOVE. Current Visit: No (5) Chronic anemia Status: Chronic Assessment and plan: SEE PLAN OF CARE LISTED ABOVE. Current Visit: Yes (6) PVCs (premature ventricular contractions) Status: Chronic Assessment and plan: SEE PLAN OF CARE LISTED ABOVE. Current Visit: Yes (7) Pulmonary hypertension Status: Chronic Assessment and plan: SEE PLAN OF CARE LISTED ABOVE. Current Visit: Yes Cardiology - PN: Subj Interval history: Power Transmission Engineer: BRAYDEN Finley SUMMARY: 82 year old BM, PMHx CHF, cardiomyopathy, CKD IV, pulmonary HTN, HLD, chronic anemia. Patient reports he is followed by a turkey boner in [place], [place], who travels from [place], [place]. Admitted [facility] on 06/23 with CHF exacerbation. Echocardiogram during hospital admission for abdominal pain in April show serum fairly reduced systolic function, EF 25%, moderate diastolic dysfunction, moderate LA enlargement, severe pulm HTN with PAP 76 mmHg. Cardiology was consulted to assist in management of CHF. Since admission, patient has been started on IV diuresis, medication adjustments, and has had good response. Patient has had some self sustained episodes of NSVT and AT since admission. June: Patient is in good spirits today, appears to feel better today. Less shortness of breath. Denies dyspnea, chest pain. No acute respiratory distress noted. Continues low-grade temp 99.4F, improving though. SBP 115-130 mmHg. Telemetry : Sinus rhythm with PAC/PVC, HR 60s. Less atrial tachycardia overnight. Labs reviewed. H&H remained stable. Hypomagnesemia, 1.4 today. Being replaced with IV magnesium sulfate. BNP 1432. Continue to monitor and treat patient for CHF, pulmonary hypertension, PAT/AF. These are currently stable. ROS: -denies chest pain or heaviness, palpitations -denies resting dyspnea, no overt orthopnea -denies abd pain, N/V. appetite is good. Exam (Progress Note) - Constitutional Vitals: Period Temp Pulse Resp BP Sys/Dill Pulse Ox Last 24 Hr 97.8 F-99.4 F 59-98 15-20 107-133/55-93 94-100 Exam: General appearance: normal weight, no acute distress, pleasant and cooperative. Head exam: normal inspection, atraumatic Eye exam: Pupils are equal and reactive. EOMI. There is no trauma. Ear exam: Anatomically normal. Normal auditory acuity to conversation. Oral exam: No significant oral lesions. Very poor dentition. Neck exam: normal inspection no JVD. No carotid bruit. Trachea is in midline. Respiratory exam: clear to auscultation bilaterally posteriorly and anteriorly with good air movement. No rales, rhonchi or wheezes. Cardiovascular exam: regular rate and rhythm, no murmur or gallop or rub. No precordial lift. Peripheral Pulses: 2+ throughout. GI/Abdominal exam: normal bowel sounds, soft and nontender, no abdominal bruits or pulsatile masses. Musculoskeletal/Extremities exam: normal inspection without edema or cyanosis. No deformities or trauma. Neurological exam: alert, oriented X3. There is no gross neurologic deficits. No resting tremor. His speech is difficult to understand. Psychiatric exam: normal affect, normal mood. Cognitive function is grossly intact. Patient does not appear anxious or depressed. Skin exam: normal color, warm, dry. No rashes or other skin lesions. Result/EKG - Labs CBC & BMP: 06/28/17 04:54 06/28/17 04:54 Lab Results: I have reviewed the past 24 hour labs Labs: Laboratory Results - last 24 hr 06/28/17 06/28/17 06/28/17 04:54 04:54 04:54 WBC 5.0 RBC 3.86 Hgb 8.2 L Hct 26.7 L MCV 69.2 L MCH 21 L MCHC 30.7 L RDW 19.2 H Plt Count 231 MPV 11.1 Neut % (Auto) 69.2 Lymph % (Auto) 14.7 L Caroline % (Auto) 14.1 H Eos % (Auto) 1.2 Baso % (Auto) 0.6 Neut # (Auto) 3.5 Lymph # (Auto) 0.7 L Caroline # (Auto) 0.7 Eos # (Auto) 0.1 Baso # (Auto) 0.0 Immature Gran % 0.2 Nucleated RBC % 0.0 Immature Gran # 0.01 Nucleated RBCs # 0.00 Immature Plt Fraction 0.0 Sodium 138 Potassium 3.5 Chloride 96 L Carbon Dioxide 35 H Anion Gap 10.5 BUN 33 H Creatinine 2.10 H GFR Calculation 34 BUN/Creatinine Ratio 15.00 Glucose 115 H Calculated Osmolality 282.7 Calcium 8.3 L Magnesium 1.4 L B-Natriuretic Peptide 1432 H - EKG EKG results: interpreted by me EKG shows: sinus rhythm (PVC/PAC) John Kraft Attila, MD, personally performed the services described in this documentation, ascribed by Mandy Chavez RN in my presence, and it is both accurate and complete 815 .
[2017-06-29] MEDS: ALBUTEROL/IPRATROPIUM 3 ML NEB RESP TX SCH ×5 (02:51→19:46)
[2017-06-29 06:08] LABS: Basophils % 0.8 % (0.0-0.8); Eosinophils # 0.2 10*3/uL (0.0-0.87); Eosinophils % 3.5 % (0.00-10.9); Hematocrit 26.7 VOL% (42.0-52.0); Hemoglobin 8.1 GM/DL (14.0-18.0); Immature Granulocytes % 0.2 %; Immature Granulocytes Absolute 0.01 #; Lymphocytes % 21.6 % (21.2-54.2); Mean Corpuscular HGB Conc 30.3 GM/DL (32-36); Mean Corpuscular Hemoglobin 21 PG (27-34); Mean Platelet Volume 10.4 FL (9.6-12.0); Monocytes # 0.9 10*3/uL (0.11-0.8); Monocytes % 19.1 % (1.7-12.7); Neutrophils # 2.6 10*3/uL (1.4-7.4); Neutrophils % 54.8 % (38.7-73.9); Platelet Count 228 T/CUMM (130-400); Red Blood Count 3.87 MC/CUMM (3.8-5.5); White Blood Count 4.8 T/CUMM (4-12)
[2017-06-29 06:31] LABS: Eosinophils 4 % (0-10); Lymphocytes 23 % (20-55); Segmented Neutrophils 53 % (50-85); Total Cells Counted 100
[2017-06-29 06:32] LABS: Hypochromasia 2+; Macrocytosis 1+; Platelet Estimate Adequate
[2017-06-29 06:43] LABS: Calcium 8.2 MG/DL (8.5-10.1); Magnesium 2.4 MG/DL (1.8-2.4); Osmolality,Calculated 282.8 MOS/KG (273-304); Potassium 3.4 MMOL/L (3.5-5.1)
[2017-06-29] MEDS: hydrALAZINE 25 MG TABLET PO SCH ×2 (08:29→21:05)
[2017-06-29] MEDS: FUROSEMIDE 40 MG/4 ML VIAL IV SCH ×2 (08:30→15:27)
[2017-06-29] MEDS: SIMVASTATIN 20 MG TABLET PO SCH (08:30)
[2017-06-29] MEDS: AMIODARONE 200 MG TABLET PO SCH ×2 (08:30→21:05)
[2017-06-29] MEDS: ASPIRIN EC 81 MG TABLET PO SCH (08:30)
[2017-06-29] MEDS: APIXABAN 5 MG TABLET PO SCH ×2 (08:30→21:05)
[2017-06-29] MEDS: PANTOPRAZOLE 40 MG TABLET PO SCH (08:30)
[2017-06-29] MEDS: NEBIVOLOL 10 MG TABLET PO SCH (08:30)
--- NOTE | 2017-06-29 12:41 | Hospitalist Progress Note ---
Assessment and Plan - Time spent with patient Time spent with patient: Less than 30 minutes (1) Atrial fibrillation with RVR Status: Acute Assessment and plan: 06/29/17 Physical therapy this morning, patient tolerated well - continue PT -K+ 3.4 - will replace with p.o. dose potassium -CHF - EF 25% - continue diuresis -AFib- continue Amiodarone -HTN - BP controlled -continue statin, low dose ASA, BB -Magnesium improved to 2.4 - continue to monitor -Cardiology is following - greatly appreciate recommendations with care -Will discuss with Dr Razo for further recommendations of care 06/28/17 Patient has been converted from Cardizem infusion to Amiodarone p.o., heart rate is better controlled at present acute bronchitis: levaquin stopped per recommendation of cardiology related to started Amiodarone; continue duonebs Hypertension: better controlled; continue current medical management Chronic Anemia: H&H stable 8.2/26.7 slight decrease from 8.4/27.9 - continue to monitor closely hypomagnesium: magnesium replacement ordered CHF: continue to monitor repeat a.m. labs PT to continue to work with patient due to generalized weakness Cardiology is following and appreciate recommendations with care. Further Hospitalist recommendations to follow per Dr Razo. 06/27/17 - Reported at 4:30 a.m. patient had an episode of A-Fib with RVR and started on Cardizem infusion Currently on 5mg/hr and Afib is at a controlled rate - will continue to monitor Cardiology is following and greatly appreciate their assistance with care. Current Visit: Yes (2) Acute bronchitis Status: Acute Assessment and plan: 06/28/17 - levaquin discontinued d/t amiodarone started. continue duonebs 06/27/17 - continue levaquin and duonebs Current Visit: Yes (3) Hypertension Status: Chronic Assessment and plan: 06/27/17 - continue current recommended treatment per cardiology and continue to monitor. Current Visit: Yes (4) Cardiomyopathy Status: Chronic Current Visit: Yes (5) Chronic anemia Status: Chronic Assessment and plan: 06/29/17 - Stable - 8.1 & 26.7 - continue to monitor 06/27/17 - stable continue to monitor Current Visit: Yes (6) Congestive heart failure Status: Chronic Assessment and plan: 06/28/17 BNP improving down to 1432 from ---<3744 06/27/17 - continue to monitor Current Visit: Yes Hospitalist: Subjective Interval history: Mr Crespo seen and chart reviewed. He is sitting up in chair, appears comfortable. Denies any shortness of breath or chest pain. Has been in Physical therapy earlier this morning, reports tolerated well. Exam - Constitutional Vitals: Period Temp Pulse Resp BP Sys/Dill Pulse Ox Last 24 Hr 98.1 F-100.0 F 62-74 16-20 104-129/59-74 94-99 General appearance: normal weight, no acute distress - Head Head exam: Present: normal inspection - Eye Eye exam: Present: EOMI Pupils: Present: ADARSH - Neck Neck exam: Present: normal inspection. Absent: thyromegaly - Respiratory Respiratory exam: Present: clear to auscultation bilaterally. Absent: rhonchi, stridor, wheezes - Cardiovascular Cardiovascular exam: Present: regular rate and rhythm - GI/Abdominal GI/Abdominal exam: Present: normal bowel sounds, soft. Absent: tenderness, rebound - Extremities Exam Extremities exam: Present: normal inspection, full ROM. Absent: edema - Neurological Exam Neurological exam: Present: alert, oriented X3, CN II-XII intact - Psychiatric Psychiatric exam: Present: normal affect, normal mood. Absent: agitated, anxious - Skin Skin exam: Present: normal color, warm, dry Results - Labs CBC & BMP: 06/29/17 05:54 06/29/17 05:54 Lab Results: I have reviewed the past 24 hour labs
--- NOTE | 2017-06-29 19:21 | Cardiology Progress Note ---
Scott Kraft Vanessa RN, am scribing for, and in the presence of, Santos Lopez MD 19 :21. Assessment and Plan - Time spent with patient Time spent with patient: Greater than 30 minutes (1) Congestive heart failure Status: Chronic Assessment and plan: 82 year old BM, followed by cardiology in [place], [place]. PMHx of cardiomyopathy ( current EF 25%), severe pulm HTN, CHF, CKD IV, HLD. Now admitted with CHF exacerbation and has responded to IV diuretics with good results. Has also been having NSVT, PAT, episode of atrial fib RVR. Echo: LVEF 25%, mild diastolic dysfunction, mild biatrial dilation, moderate TR , PAP 61 mmHg EKG: SR 80s w/ PAC and PVC; transient PAT/MAT, atrial fib RVR 140s, QTc 421 -CHF-EF 25%. Switch Lasix to p.o. 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 Continue amiodarone 400 mg p.o. twice daily. Heart rate is controlled. No history of lung disease. Continue Eliquis. CHADSVASC 4. Anemia is stable, monitor closely. Decrease amiodarone to 200 mg daily on 07/02/2007, then monitor LFT/ TFTs, PFTs as an outpatient while remains on amiodarone -Bronchitis-nebulizer tx per attending physician. No sepsis. Antiarrhythmic options are quite limited due to comorbidities. -Hypertension-BP controlled. -CKD-avoiding RICHI inhibitors / ARBs -Continue statin, low dose ASA, BB -If stable on p.o. diuretics, from a cardiac perspective, may be ready for discharge. Likely will need STR Current Visit: Yes (2) Cardiomyopathy Status: Chronic Assessment and plan: SEE PLAN OF CARE LISTED ABOVE. Current Visit: Yes (3) Lower extremity edema Status: Resolved Assessment and plan: SEE PLAN OF CARE LISTED ABOVE. 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 Stable for d/ c home. Status: Chronic Assessment and plan: SEE PLAN OF CARE LISTED ABOVE. Current Visit: No (5) Chronic anemia Status: Chronic Assessment and plan: SEE PLAN OF CARE LISTED ABOVE. Current Visit: Yes (6) PVCs (premature ventricular contractions) Status: Chronic Assessment and plan: SEE PLAN OF CARE LISTED ABOVE. Current Visit: Yes (7) Pulmonary hypertension Status: Chronic Assessment and plan: SEE PLAN OF CARE LISTED ABOVE. Current Visit: Yes Cardiology - PN: Subj Interval history: Cco & President: BRAYDEN Finley SUMMARY: 82 year old BM, PMHx CHF, cardiomyopathy, CKD IV, pulmonary HTN, HLD, chronic anemia. Patient reports he is followed by a deputy administrator in [place], [place], who travels from [place], [place]. Admitted [facility] telemetry on 06/23 with CHF exacerbation. Echocardiogram during hospital admission for abdominal pain in April show serum fairly reduced systolic function, EF 25%, moderate diastolic dysfunction, moderate LA enlargement, severe pulm HTN with PAP 76 mmHg. Cardiology was consulted to assist in management of CHF. Since admission, patient has been started on IV diuresis, medication adjustments, and has had good response. Patient has had some self sustained episodes of NSVT and AT since admission. June: Patient appears to be much improved today. Feeling well, and is in good spirits sitting up in bedside chair. No acute respiratory distress. Denies chest pain or dyspnea. Very weak yesterday with PT. Being continued today. Febrile overnight. SBP 120-130 mmHg. Telemetry: SR, HR 70s, few PVCs. Atrial tach improved today. Labs reviewed. Cell counts remain stable. Mild hypokalemia, 3.4. Increasing creatinine, 2.4. Hypomagnesemia improved today, 2.4. Continue to monitor and treat patient for CHF, hypertension, cardiomyopathy, renal insufficiency. These are currently stable. ROS: -No dyspnea, orthopnea -No chest pain or palpitations, no chest -No abd pain, N/V. Appetite good Exam (Progress Note) - Constitutional Vitals: Period Temp Pulse Resp BP Sys/Dill Pulse Ox Last 24 Hr 98.9 F-100.0 F 62-87 15-20 99-129/61-74 94-99 Exam: General appearance: normal weight, no acute distress, pleasant and cooperative. Head exam: normal inspection, atraumatic Eye exam: Pupils are equal and reactive. EOMI. There is no trauma. Ear exam: Anatomically normal. Normal auditory acuity to conversation. Oral exam: No significant oral lesions. Very poor dentition. Neck exam: normal inspection no JVD. No carotid bruit. Trachea is in midline. Respiratory exam: clear to auscultation. No rales, rhonchi or wheezes. No supplemental oxygen. Cardiovascular exam: regular rate and rhythm, no murmur or gallop or rub. Peripheral Pulses: 2+ throughout. GI/Abdominal exam: normal bowel sounds, soft and nontender, no abdominal bruits or pulsatile masses. Musculoskeletal/Extremities exam: normal inspection without edema or cyanosis. No deformities or trauma. Neurological exam: alert, oriented X3. There is no gross neurologic deficits. No resting tremor. His speech is difficult to understand. Psychiatric exam: normal affect, normal mood. Cognitive function is grossly intact. Patient does not appear anxious or depressed. Skin exam: normal color, warm, dry, intact. No rashes or other skin lesions. Result/EKG - Labs CBC & BMP: 06/29/17 05:54 06/29/17 05:54 Lab Results: I have reviewed the past 24 hour labs Labs: Laboratory Results - last 24 hr 06/29/17 06/29/17 06/29/17 05:54 05:54 05:54 WBC 4.8 RBC 3.87 Hgb 8.1 L Hct 26.7 L MCV 69.0 L MCH 21 L MCHC 30.3 L RDW 19.0 H Plt Count 228 MPV 10.4 Neut % (Auto) 54.8 Lymph % (Auto) 21.6 [place] % (Auto) 19.1 H Eos % (Auto) 3.5 Baso % (Auto) 0.8 Neut # (Auto) 2.6 Lymph # (Auto) 1.0 L [place] # (Auto) 0.9 H Eos # (Auto) 0.2 Baso # (Auto) 0.0 Total Counted 100 Immature Gran % 0.2 Nucleated RBC % 0.0 Immature Gran # 0.01 Segmented Neutrophils 53 Lymphocytes 23 Monocytes 20 H Eosinophils 4 Nucleated RBCs # 0.00 Platelet Estimate Adequate Immature Plt Fraction 0.0 Hypochromasia 2+ Macrocytosis 1+ Sodium 137 Potassium 3.4 L Chloride 95 L Carbon Dioxide 35 H Anion Gap 10.4 BUN 41 H Creatinine 2.40 H GFR Calculation 29 BUN/Creatinine Ratio 17.00 Glucose 103 Calculated Osmolality 282.8 Calcium 8.2 L Magnesium 2.5 H 2.4 - EKG EKG results: interpreted by me, no acute changes EKG shows: sinus rhythm (Multifocal PVCs) John Kraft Attila, MD, personally performed the services described in this documentation, ascribed by Mandy Chavez RN in my presence, and it is both accurate and complete .
--- NOTE | 2017-06-29 21:50 | Order Completion Report ---
See report scanned to EMR
[2017-06-30] MEDS: ALBUTEROL/IPRATROPIUM 3 ML NEB RESP TX SCH ×6 (00:19→19:41)
[2017-06-30 04:21] LABS: Basophils # 0.1 10*3/uL (0.0-0.2); Basophils % 1.3 % (0.0-0.8); Eosinophils # 0.3 10*3/uL (0.0-0.87); Eosinophils % 6.1 % (0.00-10.9); Hematocrit 27.2 VOL% (42.0-52.0); Hemoglobin 8.2 GM/DL (14.0-18.0); Immature Granulocytes % 0.2 %; Immature Granulocytes Absolute 0.01 #; Lymphocytes # 1.2 10*3/uL (1.4-4.0); Lymphocytes % 21.6 % (21.2-54.2); Mean Corpuscular HGB Conc 30.1 GM/DL (32-36); Mean Corpuscular Hemoglobin 21 PG (27-34); Mean Corpuscular Volume 69.6 FL (87-102); Mean Platelet Volume 10.9 FL (9.6-12.0); Monocytes # 0.9 10*3/uL (0.11-0.8); Monocytes % 16.4 % (1.7-12.7); Neutrophils % 54.4 % (38.7-73.9); Platelet Count 242 T/CUMM (130-400); Red Blood Count 3.91 MC/CUMM (3.8-5.5); Red Cell Distribution Width 19.5 % (9.3-17.3); White Blood Count 5.4 T/CUMM (4-12)
[2017-06-30 04:50] LABS: Calcium 8.3 MG/DL (8.5-10.1); Magnesium 2.2 MG/DL (1.8-2.4); Potassium 3.6 MMOL/L (3.5-5.1)
[2017-06-30 04:51] LABS: Eosinophils 6 % (0-10); Lymphocytes 24 % (20-55); Segmented Neutrophils 57 % (50-85); Total Cells Counted 100
[2017-06-30 04:52] LABS: Hypochromasia 2+; Microcytosis 1+; Platelet Estimate Normal; Target Cells Slight
[2017-06-30] MEDS: FUROSEMIDE 40 MG TABLET PO SCH ×2 (08:38→15:11)
[2017-06-30] MEDS: APIXABAN 5 MG TABLET PO SCH ×2 (08:38→21:00)
[2017-06-30] MEDS: AMIODARONE 200 MG TABLET PO SCH ×2 (08:38→21:00)
[2017-06-30] MEDS: ASPIRIN EC 81 MG TABLET PO SCH (08:39)
[2017-06-30] MEDS: PANTOPRAZOLE 40 MG TABLET PO SCH (08:39)
[2017-06-30] MEDS: hydrALAZINE 25 MG TABLET PO SCH ×2 (08:39→21:00)
[2017-06-30] MEDS: SIMVASTATIN 20 MG TABLET PO SCH (08:39)
[2017-06-30] MEDS: NEBIVOLOL 10 MG TABLET PO SCH (08:39)
[2017-06-30] MEDS ORDERED: COLCHICINE 0.6 MG TABLET PO ONE (13:27)
--- NOTE | 2017-06-30 15:59 | Cardiology Progress Note ---
Scott Kraft Vanessa RN, am scribing for, and in the presence of, Santos Lopez MD 15 :59. Assessment and Plan - Time spent with patient Time spent with patient: Greater than 30 minutes (1) Congestive heart failure Status: Chronic Assessment and plan: 82 year old BM, followed by cardiology in [place], [place]. PMHx of cardiomyopathy ( current EF 25%), severe pulm HTN, CHF, CKD IV, HLD. Now admitted with CHF exacerbation and has responded to IV diuretics with good results. Has also been having NSVT, PAT, episode of atrial fib RVR. Echo: LVEF 25%, mild diastolic dysfunction, mild biatrial dilation, moderate TR , PAP 61 mmHg EKG: SR 80s w/ PAC and PVC; transient PAT/MAT, atrial fib RVR 140s, QTc 421 -CHF-EF 25%. Continue PO Lasix. Worsening creatinine, 2.9. He had no symptoms with light activity, but still quite debilitated -MAT/PAF. Continue amiodarone 400 mg p.o. twice daily. Heart rate is controlled. No history of lung disease. Continue Eliquis. CHADSVASC 4. Anemia remains stable, monitor closely. Decrease amiodarone to 200 mg daily on 2006, then monitor LFT/TFTs, PFTs as an outpatient while remains on amiodarone -Bronchitis-nebulizer tx per attending physician. No sepsis. Antiarrhythmic options are quite limited due to comorbidities. -Hypertension-BP remains controlled. -CKD-avoiding RICHI inhibitors / ARBs . -Continue statin, low dose ASA, BB -Recommend to follow-up with his fuel storage technician in [place], [place], once completes swing bed/rehab. Current Visit: Yes (2) Cardiomyopathy Status: Chronic Assessment and plan: SEE PLAN OF CARE LISTED ABOVE. Current Visit: Yes (3) Lower extremity edema Status: Resolved Assessment and plan: SEE PLAN OF CARE LISTED ABOVE. 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 Stable for d/ c home. Status: Chronic Assessment and plan: SEE PLAN OF CARE LISTED ABOVE. Current Visit: No (5) Chronic anemia Status: Chronic Assessment and plan: SEE PLAN OF CARE LISTED ABOVE. Current Visit: Yes (6) PVCs (premature ventricular contractions) Status: Chronic Assessment and plan: SEE PLAN OF CARE LISTED ABOVE. Current Visit: Yes (7) Pulmonary hypertension Status: Chronic Assessment and plan: SEE PLAN OF CARE LISTED ABOVE. 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 Patient reports he is followed by a fuel storage technician in [place], [place], who travels from [place], [place]. [facility] with [facility]F exacerbation. Echocardiogram during hospital admission for abdominal pain in April show serum fairly reduced systolic function, EF 25%, moderate diastolic dysfunction, moderate LA enlargement, severe pulm HTN with PAP 76 mmHg. Cardiology was consulted to assist in management of CHF. Since admission, patient has been started on IV diuresis, medication adjustments, and has had good response. Patient has had some self sustained episodes of NSVT and AT since admission but has been stable with PO amiodarone. Anticoagulation with Eliquis initiated 06/27. June: Patient in no acute respiratory distress this morning. Pleasant. Denies chest pain, dyspnea, other complaint today. SBP 115-130 mmHg. Tele: SR 60s, occ mild SB 50s, occ PAC/PVC. No s/s bleeding. Labs reviewed. Cell counts stable. Electrolytes normal range. Worsening creatinine, up to 2.9 today. Transitioned to PO Lasix this morning. Continue to monitor and treat CHF, cardiomyopathy, CKD , AT. Currently stable. ROS: -denies chest pain, tightness, palpitations -denies dyspnea, cough -denies abd pain, N/V. Good appetite. Exam (Progress Note) - Constitutional Vitals: Period Temp Pulse Resp BP Sys/Dill Pulse Ox Last 24 Hr 97.7 F-98.5 F 61-92 16-20 105-133/59-76 17-99 Exam: General appearance: normal weight, no acute distress, pleasant and cooperative. Head exam: normal inspection, atraumatic Eye exam: Pupils are equal and reactive. EOMI. There is no trauma. Ear exam: Anatomically normal. Normal auditory acuity to conversation. Oral exam: No significant oral lesions. Very poor dentition. Neck exam: normal inspection no JVD. No carotid bruit. Trachea is in midline. Respiratory exam: clear to auscultation. No rales, rhonchi or wheezes. Intermittent use of supplemental oxygen. Cardiovascular exam: regular rate and rhythm, no murmur or gallop or rub. Peripheral Pulses: 2+ throughout. GI/Abdominal exam: normal bowel sounds, soft and nontender, no abdominal bruits or pulsatile masses. Musculoskeletal/Extremities exam: normal inspection without edema or cyanosis. No deformities or trauma. Neurological exam: alert, oriented X3. There is no gross neurologic deficits. No resting tremor. His speech is difficult to understand. Psychiatric exam: normal affect, normal mood. Cognitive function is grossly intact. Patient does not appear anxious or depressed. Skin exam: normal color, warm, dry, intact. No rashes or other skin lesions. Result/EKG - Labs CBC & BMP: 06/30/17 03:56 06/30/17 03:56 Lab Results: I have reviewed the past 24 hour labs Labs: Laboratory Results - last 24 hr 06/30/17 06/30/17 03:56 03:56 WBC 5.4 RBC 3.91 Hgb 8.2 L Hct 27.2 L MCV 69.6 L MCH 21 L MCHC 30.1 L RDW 19.5 H Plt Count 242 MPV 10.9 Neut % (Auto) 54.4 Lymph % (Auto) 21.6 [place] % (Auto) 16.4 H Eos % (Auto) 6.1 Baso % (Auto) 1.3 H Neut # (Auto) 3.0 Lymph # (Auto) 1.2 L [place] # (Auto) 0.9 H Eos # (Auto) 0.3 Baso # (Auto) 0.1 Total Counted 100 Immature Gran % 0.2 Nucleated RBC % 0.0 Immature Gran # 0.01 Segmented Neutrophils 57 Lymphocytes 24 Monocytes 13 Eosinophils 6 Nucleated RBCs # 0.00 Platelet Estimate Normal Immature Plt Fraction 0.0 Hypochromasia 2+ Microcytosis 1+ Target Cells Slight Sodium 136 Potassium 3.6 Chloride 93 L Carbon Dioxide 35 H Anion Gap 11.6 BUN 49 H Creatinine 2.90 H GFR Calculation 23 BUN/Creatinine Ratio 16.00 Glucose 124 H Calculated Osmolality 285.0 Calcium 8.3 L Magnesium 2.2 - EKG EKG results: interpreted by me, no acute changes EKG shows: sinus rhythm (Mild bradycardia; PVC/PAC) I, Santos Lopez MD, personally performed the services described in this documentation, ascribed by Mandy Chavez RN in my presence, and it is both accurate and complete .
--- NOTE | 2017-06-30 16:21 | Hospitalist Progress Note ---
Assessment and Plan - Time spent with patient Time spent with patient: Less than 30 minutes (1) Atrial fibrillation with RVR Status: Acute Assessment and plan: 06/30/17 PT is working patient -K - stable 3.6 -CHF - EF 25% - continue diuresis -AFib- continue Amiodarone -HTN - continue current medications -continue statin, low dose ASA, BB -Magnesium stable at 2.2 -Uric Acid - 12.7 - started low dose colchicine 0.6mg -cardiology is following - appreciate recommendations -Further recommendations to follow per Dr Razo 06/29/17 Physical therapy this morning, patient tolerated well - continue PT -K+ 3.4 - will replace with p.o. dose potassium -CHF - EF 25% - continue diuresis -AFib- continue Amiodarone -HTN - BP controlled -continue statin, low dose ASA, BB -Magnesium improved to 2.4 - continue to monitor -Cardiology is following - greatly appreciate recommendations with care -Will discuss with Dr Razo for further recommendations of care 06/28/17 Patient has been converted from Cardizem infusion to Amiodarone p.o., heart rate is better controlled at present acute bronchitis: levaquin stopped per recommendation of cardiology related to started Amiodarone; continue duonebs Hypertension: better controlled; continue current medical management Chronic Anemia: H&H stable 8.2/26.7 slight decrease from 8.4/27.9 - continue to monitor closely hypomagnesium: magnesium replacement ordered CHF: continue to monitor repeat a.m. labs PT to continue to work with patient due to generalized weakness Cardiology is following and appreciate recommendations with care. Further Hospitalist recommendations to follow per Dr Razo. 06/27/17 - Reported at 4:30 a.m. patient had an episode of A-Fib with RVR and started on Cardizem infusion Currently on 5mg/hr and Afib is at a controlled rate - will continue to monitor Cardiology is following and greatly appreciate their assistance with care. Current Visit: Yes (2) Acute bronchitis Status: Acute Assessment and plan: 06/28/17 - levaquin discontinued d/t amiodarone started. continue duonebs 06/27/17 - continue levaquin and duonebs Current Visit: Yes (3) Hypertension Status: Chronic Assessment and plan: 06/27/17 - continue current recommended treatment per cardiology and continue to monitor. Current Visit: Yes (4) Cardiomyopathy Status: Chronic Current Visit: Yes (5) Chronic anemia Status: Chronic Assessment and plan: 06/29/17 - Stable - 8.1 & 26.7 - continue to monitor 06/27/17 - stable continue to monitor Current Visit: Yes (6) Congestive heart failure Status: Chronic Assessment and plan: 06/28/17 BNP improving down to 1432 from ---<3744 06/27/17 - continue to monitor Current Visit: Yes Hospitalist: Subjective Interval history: Mr Crespo seen and chart reviewed. He appears more energetic today. He reports tolerating physical therapy. He reports a better appetite. He denies shortness of breath or chest pain. Exam - Constitutional Vitals: Period Temp Pulse Resp BP Sys/Dill Pulse Ox Last 24 Hr 97.6 F-98.5 F 58-92 16-18 102-133/54-76 17-100 General appearance: normal weight, no acute distress - Head Head exam: Present: normal inspection - Eye Eye exam: Present: EOMI Pupils: Present: ADARSH - Neck Neck exam: Present: normal inspection. Absent: thyromegaly - Respiratory Respiratory exam: Present: clear to auscultation bilaterally. Absent: rhonchi, stridor, wheezes - Cardiovascular Cardiovascular exam: Present: regular rate and rhythm - GI/Abdominal GI/Abdominal exam: Present: normal bowel sounds, soft. Absent: tenderness, rebound - Extremities Exam Extremities exam: Present: normal inspection, full ROM. Absent: edema - Neurological Exam Neurological exam: Present: alert, oriented X3 - Psychiatric Psychiatric exam: Present: normal affect, normal mood. Absent: agitated, anxious - Skin Skin exam: Present: normal color, warm, dry Results - Labs CBC & BMP: 06/30/17 03:56 06/30/17 03:56 Lab Results: I have reviewed the past 24 hour labs Labs: uric acid 12.7 Specialty Discharge - Follow Up or Referrals
[2017-07-01] MEDS: ALBUTEROL/IPRATROPIUM 3 ML NEB RESP TX SCH ×6 (00:30→19:16)
[2017-07-01 05:06] LABS: Basophils # 0.1 10*3/uL (0.0-0.2); Basophils % 1.2 % (0.0-0.8); Eosinophils # 0.3 10*3/uL (0.0-0.87); Eosinophils % 6.7 % (0.00-10.9); Hematocrit 27.4 VOL% (42.0-52.0); Hemoglobin 8.3 GM/DL (14.0-18.0); Immature Granulocytes % 0.2 %; Immature Granulocytes Absolute 0.01 #; Lymphocytes % 23.6 % (21.2-54.2); Mean Corpuscular HGB Conc 30.3 GM/DL (32-36); Mean Corpuscular Hemoglobin 21 PG (27-34); Mean Corpuscular Volume 69.9 FL (87-102); Mean Platelet Volume 10.9 FL (9.6-12.0); Monocytes # 0.7 10*3/uL (0.11-0.8); Monocytes % 18.4 % (1.7-12.7); Neutrophils % 49.9 % (38.7-73.9); Platelet Count 243 T/CUMM (130-400); Red Blood Count 3.92 MC/CUMM (3.8-5.5); Red Cell Distribution Width 19.9 % (9.3-17.3)
[2017-07-01 05:37] LABS: Calcium 8.3 MG/DL (8.5-10.1)
[2017-07-01 05:38] LABS: Magnesium 2.1 MG/DL (1.8-2.4); Osmolality,Calculated 287.8 MOS/KG (273-304)
[2017-07-01 05:52] LABS: Eosinophils 7 % (0-10); Giant Platelets Few; Hypochromasia 2+; Lymphocytes 20 % (20-55); Microcytosis Slight; Platelet Estimate Adequate; Segmented Neutrophils 51 % (50-85); Total Cells Counted 100
[2017-07-01] MEDS: SIMVASTATIN 20 MG TABLET PO SCH (09:44)
[2017-07-01] MEDS: AMIODARONE 200 MG TABLET PO SCH (09:44)
[2017-07-01] MEDS: ASPIRIN EC 81 MG TABLET PO SCH (09:44)
[2017-07-01] MEDS: hydrALAZINE 25 MG TABLET PO SCH ×2 (09:44→21:33)
[2017-07-01] MEDS: PANTOPRAZOLE 40 MG TABLET PO SCH (09:45)
[2017-07-01] MEDS: NEBIVOLOL 10 MG TABLET PO SCH (09:45)
[2017-07-01] MEDS: APIXABAN 5 MG TABLET PO SCH ×2 (09:45→21:33)
[2017-07-01] MEDS: FUROSEMIDE 40 MG TABLET PO SCH ×2 (09:45→16:14)
--- NOTE | 2017-07-01 12:10 | Hospitalist Progress Note ---
Assessment and Plan - Time spent with patient Time spent with patient: Less than 30 minutes (1) Atrial fibrillation with RVR Status: Acute Assessment and plan: 07/01/17 PT continue to work with patient's strength -K remain stable 4.0 -CHF (ED 25%) - continue diuresis -Afib - continue Amiodarone and Eliquis - controlled rate Card recommend: Decrease amiodarone to 200 mg daily on 07/02/2007, then monitor LFT/TFTs, PFTs as an outpatient while remains on amiodarone -HTN - stable/controlled - continue current medications -Magnesium - stable 2.1 -Uric acid elevation - started 06/30/17 low dose Colchicine -Cardiology is following and recommends follow up with loop tender in [place], [place] once discharged -Question - patient may need long term placement because insurance does not qualify-cover rehab/swing bed -repeat a.m. labs -Further recommendations to follow per Dr Razo 06/30/17 PT is working patient -K - stable 3.6 -CHF - EF 25% - continue diuresis -AFib- continue Amiodarone -HTN - continue current medications -continue statin, low dose ASA, BB -Magnesium stable at 2.2 -Uric Acid - 12.7 - started low dose colchicine 0.6mg -cardiology is following - appreciate recommendations -Further recommendations to follow per Dr Razo 06/29/17 Physical therapy this morning, patient tolerated well - continue PT -K+ 3.4 - will replace with p.o. dose potassium -CHF - EF 25% - continue diuresis -AFib- continue Amiodarone -HTN - BP controlled -continue statin, low dose ASA, BB -Magnesium improved to 2.4 - continue to monitor -Cardiology is following - greatly appreciate recommendations with care -Will discuss with Dr Razo for further recommendations of care 06/28/17 Patient has been converted from Cardizem infusion to Amiodarone p.o., heart rate is better controlled at present acute bronchitis: levaquin stopped per recommendation of cardiology related to started Amiodarone; continue duonebs Hypertension: better controlled; continue current medical management Chronic Anemia: H&H stable 8.2/26.7 slight decrease from 8.4/27.9 - continue to monitor closely hypomagnesium: magnesium replacement ordered CHF: continue to monitor repeat a.m. labs PT to continue to work with patient due to generalized weakness Cardiology is following and appreciate recommendations with care. Further Hospitalist recommendations to follow per Dr Razo. 06/27/17 - Reported at 4:30 a.m. patient had an episode of A-Fib with RVR and started on Cardizem infusion Currently on 5mg/hr and Afib is at a controlled rate - will continue to monitor Cardiology is following and greatly appreciate their assistance with care. Current Visit: Yes (2) Acute bronchitis Status: Acute Assessment and plan: 06/28/17 - levaquin discontinued d/t amiodarone started. continue duonebs 06/27/17 - continue levaquin and duonebs Current Visit: Yes (3) Hypertension Status: Chronic Assessment and plan: 06/27/17 - continue current recommended treatment per cardiology and continue to monitor. Current Visit: Yes (4) Cardiomyopathy Status: Chronic Current Visit: Yes (5) Chronic anemia Status: Chronic Assessment and plan: 06/29/17 - Stable - 8.1 & 26.7 - continue to monitor 06/27/17 - stable continue to monitor Current Visit: Yes (6) Congestive heart failure Status: Chronic Assessment and plan: 06/28/17 BNP improving down to 1432 from ---<3744 06/27/17 - continue to monitor Current Visit: Yes Hospitalist: Subjective Interval history: Mr Crespo seen and chart reviewed. He verbalizes feeling better this morning. He is resting in bed and appears comfortable. He denies any shortness of breath, chest pain, nausea or vomiting. He reports having a good appetite. Exam - Constitutional Vitals: Period Temp Pulse Resp BP Sys/Dill Pulse Ox Last 24 Hr 97.8 F-100 F 56-76 16-20 105-138/56-74 92-99 General appearance: normal weight, no acute distress - Head Head exam: Present: normal inspection - Eye Eye exam: Present: EOMI Pupils: Present: ADARSH - Neck Neck exam: Present: normal inspection. Absent: thyromegaly - Respiratory Respiratory exam: Present: clear to auscultation bilaterally. Absent: rales, rhonchi, stridor, wheezes - Cardiovascular Cardiovascular exam: Present: regular rate and rhythm - GI/Abdominal GI/Abdominal exam: Present: normal bowel sounds, soft. Absent: tenderness, rebound - Extremities Exam Extremities exam: Present: normal inspection, full ROM. Absent: edema - Neurological Exam Neurological exam: Present: alert, oriented X3 - Psychiatric Psychiatric exam: Present: normal affect, normal mood. Absent: agitated, anxious - Skin Skin exam: Present: normal color, warm, dry Results - Labs CBC & BMP: 07/01/17 03:16 07/01/17 03:16 Lab Results: I have reviewed the past 24 hour labs Labs: H&H remains stable: 8.3 & 27.4----yesterday 8.2 & 27.2 creatinine down 2.80 ---2.90 BUN increase 54 ---49 Specialty Discharge - Follow Up or Referrals
[2017-07-01 15:34] LABS: Ferritin 18.2 ng/ml (26-388)
--- NOTE | 2017-07-01 16:09 | Cardiology Progress Note ---
Scott Kraft Vanessa RN, am scribing for, and in the presence of, Santos Lopez MD 16 :09. Assessment and Plan - Time spent with patient Time spent with patient: Greater than 30 minutes (1) Congestive heart failure Status: Chronic Assessment and plan: 82 year old BM, followed by cardiology in [place], [place]. PMHx of cardiomyopathy ( current EF 25%), severe pulm HTN, CHF, CKD IV, HLD. Now admitted with CHF exacerbation and has responded to IV diuretics with good results. Has also been having NSVT, PAT, episode of atrial fib RVR. Echo: LVEF 25%, mild diastolic dysfunction, mild biatrial dilation, moderate TR , PAP 61 mmHg EKG: SR 80s w/ PAC and PVC; transient PAT/MAT, atrial fib RVR 140s -CHF-EF 25%. Continue PO Lasix. He has quite severe CKD at baseline, stable -MAT/PAF. Decrease amiodarone to 200 mg p.o. tomorrow, continue Bystolic. Continue Eliquis, CHADSVASC 4. -Monitor LFT/TFTs, PFTs as an outpatient while remains on amiodarone -Anemia remaineds stable -Bronchitis-nebulizer tx per attending physician. No sepsis. Antiarrhythmic options are quite limited due to comorbidities. -Hypertension-BP remains controlled. -CKD-avoiding RICHI inhibitors / ARBs . -Continue statin, low dose ASA, BB -SS is evaluating for NSG home placement -I will sign off, please call with further questions. He may be moved off telemetry from a cardiac perspective -Recommend to follow-up with his energy manager in [place], [place], once completes swing bed/rehab. Current Visit: Yes (2) Cardiomyopathy Status: Chronic Assessment and plan: SEE PLAN OF CARE LISTED ABOVE. Current Visit: Yes (3) Lower extremity edema Status: Resolved Assessment and plan: SEE PLAN OF CARE LISTED ABOVE. 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 Stable for d/ c home. Status: Chronic Assessment and plan: SEE PLAN OF CARE LISTED ABOVE. Current Visit: No (5) Chronic anemia Status: Chronic Assessment and plan: SEE PLAN OF CARE LISTED ABOVE. Current Visit: Yes (6) PVCs (premature ventricular contractions) Status: Chronic Assessment and plan: SEE PLAN OF CARE LISTED ABOVE. Current Visit: Yes (7) Pulmonary hypertension Status: Chronic Assessment and plan: SEE PLAN OF CARE LISTED ABOVE. Current Visit: Yes Cardiology - PN: Subj Interval history: Irrigation Service Technician: BRAYDEN Finley SUMMARY: 82 year old BM, PMHx CHF, cardiomyopathy, CKD IV, pulmonary HTN, HLD, chronic anemia. Patient reports he is followed by a energy manager in [place], [place], who travels from [place], [place]. Admitted [facility] on 06/23 with CHF exacerbation. Echocardiogram during hospital admission for abdominal pain in April show serum fairly reduced systolic function, EF 25%, moderate diastolic dysfunction, moderate LA enlargement, severe pulm HTN with PAP 76 mmHg. Cardiology was consulted to assist in management of CHF. Since admission, patient has been started on IV diuresis, medication adjustments, and has had good response. Patient has had some self sustained episodes of NSVT and AT since admission but has been stable with PO amiodarone. Anticoagulation with Eliquis initiated 06/27. No s/s bleeding. June: Resting quietly. No acute distress noted. Pleasant. Denies dyspnea, chest pain, palpitations, other complaint. BP 130s/70s today. Tele: SR with occ PVC/PAC. No significant PAT, MAT, AF. Labs reviewed. H/H stable. Creatinine no significant change, 2.8 today. Electrolytes stable. 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 These are currently stable. ROS: -denies chest pain, palpitations -denies cough, dyspnea -denies abd pain, N/V. no s/s bleeding. Exam (Progress Note) - Constitutional Vitals: Period Temp Pulse Resp BP Sys/Dill Pulse Ox Last 24 Hr 97.8 F-100 F 56-76 16-20 105-138/56-76 90-99 Exam: General appearance: normal weight, no acute distress, pleasant and cooperative. Head exam: normal inspection, atraumatic Eye exam: Pupils are equal and reactive. EOMI. There is no trauma. Ear exam: Anatomically normal. Normal auditory acuity to conversation. Oral exam: No significant oral lesions. Very poor dentition. Neck exam: normal inspection no JVD. No carotid bruit. Trachea is in midline. Respiratory exam: clear to auscultation. No rales, rhonchi or wheezes. Not using supplemental oxygen Cardiovascular exam: regular rate and rhythm, no murmur or gallop or rub. Peripheral Pulses: 2+ throughout. GI/Abdominal exam: normal bowel sounds, soft and nontender, no abdominal bruits or pulsatile masses. Musculoskeletal/Extremities exam: normal inspection without edema or cyanosis. No deformities or trauma. Neurological exam: alert, oriented X3. There is no gross neurologic deficits. No resting tremor. Speech sometimes difficult to understand. Psychiatric exam: normal affect, normal mood. Cognitive function is grossly intact. Patient does not appear anxious or depressed. Skin exam: normal color, warm, dry, intact. No rashes or other skin lesions. Result/EKG - Labs CBC & BMP: 07/01/17 03:16 07/01/17 03:16 Lab Results: I have reviewed the past 24 hour labs Labs: Laboratory Results - last 24 hr 07/01/17 07/01/17 03:16 03:16 WBC 4.0 RBC 3.92 Hgb 8.3 L Hct 27.4 L MCV 69.9 L MCH 21 L MCHC 30.3 L RDW 19.9 H Plt Count 243 MPV 10.9 Neut % (Auto) 49.9 Lymph % (Auto) 23.6 [place] % (Auto) 18.4 H Eos % (Auto) 6.7 Baso % (Auto) 1.2 H Neut # (Auto) 2.0 Lymph # (Auto) 1.0 L [place] # (Auto) 0.7 Eos # (Auto) 0.3 Baso # (Auto) 0.1 Total Counted 100 Immature Gran % 0.2 Nucleated RBC % 0.0 Immature Gran # 0.01 Segmented Neutrophils 51 Lymphocytes 20 Monocytes 22 H Eosinophils 7 Nucleated RBCs # 0.00 Platelet Estimate Adequate Giant Platelets Few Immature Plt Fraction 0.0 Hypochromasia 2+ Microcytosis Slight Sodium 137 Potassium 4.0 Chloride 94 L Carbon Dioxide 35 H Anion Gap 12.0 BUN 54 H Creatinine 2.80 H GFR Calculation 24 BUN/Creatinine Ratio 19.00 Glucose 105 Calculated Osmolality 287.8 Calcium 8.3 L Magnesium 2.1 - EKG EKG results: interpreted by me, no acute changes EKG shows: sinus rhythm (occ PAC/PVC) Specialty Discharge - Follow Up or Referrals I, Santos Lopez MD, personally performed the services described in this documentation, ascribed by Mandy Chavez RN in my presence, and it is both accurate and complete .
[2017-07-02] MEDS: ALBUTEROL/IPRATROPIUM 3 ML NEB RESP TX SCH ×5 (00:11→14:19)
[2017-07-02 04:40] LABS: Basophils # 0.1 10*3/uL (0.0-0.2); Eosinophils # 0.3 10*3/uL (0.0-0.87); Hematocrit 27.7 VOL% (42.0-52.0); Hemoglobin 8.5 GM/DL (14.0-18.0); Immature Granulocytes % 0.5 %; Immature Granulocytes Absolute 0.02 #; Lymphocytes # 1.2 10*3/uL (1.4-4.0); Lymphocytes % 29.9 % (21.2-54.2); Mean Corpuscular HGB Conc 30.7 GM/DL (32-36); Mean Corpuscular Hemoglobin 22 PG (27-34); Mean Corpuscular Volume 70.1 FL (87-102); Monocytes # 0.8 10*3/uL (0.11-0.8); Monocytes % 19.1 % (1.7-12.7); Neutrophils # 1.6 10*3/uL (1.4-7.4); Neutrophils % 40.5 % (38.7-73.9); Platelet Count 258 T/CUMM (130-400); Red Blood Count 3.95 MC/CUMM (3.8-5.5); Red Cell Distribution Width 19.9 % (9.3-17.3)
[2017-07-02 05:23] LABS: Calcium 8.5 MG/DL (8.5-10.1); Magnesium 2.1 MG/DL (1.8-2.4); Osmolality,Calculated 283.1 MOS/KG (273-304)
[2017-07-02 05:28] LABS: Eosinophils 11 % (0-10); Hypochromasia 2+; Lymphocytes 33 % (20-55); Microcytosis 1+; Segmented Neutrophils 37 % (50-85); Total Cells Counted 100
[2017-07-02 05:29] LABS: Platelet Estimate Normal
[2017-07-02] MEDS ORDERED: AMIODARONE 200 MG TABLET PO SCH (09:00)
[2017-07-02] MEDS: ASPIRIN EC 81 MG TABLET PO SCH (09:06)
[2017-07-02] MEDS: NEBIVOLOL 10 MG TABLET PO SCH (09:06)
[2017-07-02] MEDS: APIXABAN 5 MG TABLET PO SCH (09:07)
[2017-07-02] MEDS: hydrALAZINE 25 MG TABLET PO SCH (09:07)
[2017-07-02] MEDS: FUROSEMIDE 40 MG TABLET PO SCH (09:07)
[2017-07-02] MEDS: SIMVASTATIN 20 MG TABLET PO SCH (09:08)
[2017-07-02] MEDS: PANTOPRAZOLE 40 MG TABLET PO SCH (09:08)
--- NOTE | 2017-07-02 10:13 | Discharge Summary ---
Hospital Course - Hospital Course Hospital Course: This is a chronically ill 82-year-old male that presented to the ED at [facility] on the morning of June 23, 2017 for the evaluation of shortness of breath. Patient has a medical history significant for hypertension, congestive heart failure, and dyslipidemia. Patient has surgical history significant for cholecystectomy. The patient reported the onset of 4 days prior to presentation. He reported an gradual onset of coughing and wheezing then progressed to shortness of breath. His symptoms became severe prompting his family members to transport him to the ED for further evaluation. The patient was assessed at the time of ED presentation. Labs were obtained which were significant for hemoglobin 8.6, hematocrit 20.4, chloride 111, BUN 32 , creatinine 2.30, glucose 117, troponin 0 0.086, and BNP 3517. Urinalysis was essentially unremarkable. Chest x-ray was significant for persistent cardiomegaly with findings that suggested residual mild congestive heart failure. Echocardiogram reported 25% left ventricular ejection fraction with moderate left atrial enlargement, moderate aortic insufficiency, severe tricuspid regurgitation, and severely elevated right-sided pressures which is estimated at 76. The patient was subsequently admitted to the hospitalist service for continuation of care. Due to the severity of the patient's presenting complaints, a cardiology and nephrology consultation was requested. Gentle diuresis and cardiovascular agents were initiated. The patient was evaluated by cardiology and recommendations were given. The patient was evaluated by nephrology and recommendations were given. On June 27, 2017, the patient experienced severe episode of shortness of breath and was discovered to be in atrial fibrillation with rapid ventricular response. The patient was then started on antiarrhythmic agents for rate control. In addition, inhaled bronchodilator treatments, lipid-lowering agents, anticoagulation agents were initiated. The patient's condition gradually improved. The family was approached regarding swing bed/rehabilitation placement at the time of discharge however, both the family and patient refused placement. The patient's condition is stable. He has not experienced any significant overnight events. Today, we feel that he is indeed appropriate for discharge to follow-up with his primary care physician and environmental property assessor as directed. The patient will be discharged on Eliquis 5 mg by mouth twice daily.Patient will need home health and home PT. - Time spent with patient Time with patient DS: Less than 30 minutes Diagnosis - Discharge Diagnosis (1) Acute bronchitis Status: Acute (2) Atrial fibrillation with RVR Status: Acute (3) Congestive heart failure Status: Chronic Specialty Discharge - Follow Up or Referrals - Speciality Discharge Instructions Cardiology Instructions: The patient has been instructed to follow-up with his environmental property assessor in [place], [place] within 7-10 days after discharge. Hospitalist Instructions: Continue to take all medications as ordered. Follow- up with her primary care physician and environmental property assessor in 7-10 days after discharge. Discharge Plan - Discharge Data Disposition: Disch To Home/Self Care Condition at Discharge: Stable Discharge Diet: advance to your usual diet Activity: resume usual activities as tolerated Hygiene: no restrictions Weight Bearing at Discharge: full weight bearing Driving: not until seen by doctor Contact your physician if you experience:: fever over 101, Difficulty voiding, Redness or swelling, Nausea/Vomiting, Shortness of breath, Bleeding, pain uncontrolled by pain medications - Discharge Medications New Apixaban [Eliquis] 5 mg PO BID #60 tablet Furosemide Tab [Lasix Tab] 40 mg PO BID DIURETIC tablet Ondansetron Inj [Zofran Inj] 4 mg IV Q4H PRN vial PRN Reason: Nausea Pantoprazole Tab [Protonix Tab] 40 mg PO DAILY tablet Simvastatin [Zocor] 20 mg PO QAM #30 tablet Amiodarone Tab [Cordarone Tab] 200 mg PO DAILY #30 tablet Nebivolol [Bystolic] 10 mg PO QAM tablet hydrALAZINE TAB [Apresoline Tab] 50 mg PO BID tablet Continue Aspirin EC Tab 81 mg PO QAM Nebivolol [Bystolic] 10 mg PO QAM #30 Discontinued hydrALAZINE TAB [Apresoline Tab] 12.5 mg PO BID Simvastatin 20 mg PO QAM - Follow Up or Referral - Forms/Instructions Instructions: Pulmonary Embolism (DC), Peripheral Vascular Disorders (DC) Exam - Constitutional Vitals: Period Temp Pulse Resp BP Sys/Dill Pulse Ox Last 24 Hr 97.9 F-99.5 F 50-67 16-22 105-128/57-72 94-99 General appearance: normal weight, no acute distress - Head Head exam: Present: normal inspection, normocephalic, atraumatic - Eye Eye exam: Present: EOMI Pupils: Present: ADARSH, normal accommodation - ENT ENT exam: Present: normal exam, normal external ear exam, normal oropharynx - Neck Neck exam: Present: normal inspection. Absent: lymphadenopathy, meningismus, tenderness, thyromegaly - Respiratory Respiratory exam: Present: clear to auscultation bilaterally. Absent: rales, rhonchi, stridor, wheezes - Cardiovascular Cardiovascular exam: Present: regular rate and rhythm. Absent: carotid bruit, diastolic murmur, JVD, rubs, systolic murmur - GI/Abdominal GI/Abdominal exam: Present: normal bowel sounds, soft - Extremities Exam Extremities exam: Present: normal inspection, normal capillary refill, full ROM. Absent: edema - Back Exam Back exam: Present: normal inspection - Neurological Exam Neurological exam: Present: alert, oriented X3, CN II-XII intact - Psychiatric Psychiatric exam: Present: normal affect, normal mood - Skin Skin exam: Present: normal color, warm, dry Discharge Results Procedures and tests throughout hospitalization: Pending Orders 06/27/17 17:08 Occult Blood, Stool Routine Labs on day of discharge: Labs from last 24 hours 07/02/17 07/02/17 07/02/17 03:39 03:39 03:39 WBC 4.0 RBC 3.95 Hgb 8.5 L Hct 27.7 L MCV 70.1 L MCH 22 L MCHC 30.7 L RDW 19.9 H Plt Count 258 MPV 11.0 Neut % (Auto) 40.5 Lymph % (Auto) 29.9 [place] % (Auto) 19.1 H Eos % (Auto) 8.0 Baso % (Auto) 2.0 H Neut # (Auto) 1.6 Lymph # (Auto) 1.2 L [place] # (Auto) 0.8 Eos # (Auto) 0.3 Baso # (Auto) 0.1 Total Counted 100 Immature Gran % 0.5 Nucleated RBC % 0.0 Immature Gran # 0.02 Segmented Neutrophils 37 L Lymphocytes 33 Monocytes 18 H Eosinophils 11 H Basophils 1.0 H Nucleated RBCs # 0.00 Platelet Estimate Normal Immature Plt Fraction 0.0 Hypochromasia 2+ Microcytosis 1+ Morphology Comment Sodium 135 L Potassium 4.0 Chloride 93 L Carbon Dioxide 34 H Anion Gap 12.0 BUN 54 H Creatinine 2.60 H GFR Calculation 26 BUN/Creatinine Ratio 20.00 Glucose 89 Calculated Osmolality 283.1 Calcium 8.5 Magnesium 2.1 Iron TIBC % Saturation Ferritin B-Natriuretic Peptide 941 H 07/01/17 03:13 WBC RBC Hgb Hct MCV MCH MCHC RDW Plt Count MPV Neut % (Auto) Lymph % (Auto) [place] % (Auto) Eos % (Auto) Baso % (Auto) Neut # (Auto) Lymph # (Auto) [place] # (Auto) Eos # (Auto) Baso # (Auto) Total Counted Immature Gran % Nucleated RBC % Immature Gran # Segmented Neutrophils Lymphocytes Monocytes Eosinophils Basophils Nucleated RBCs # Platelet Estimate Immature Plt Fraction Hypochromasia Microcytosis Morphology Comment Sodium Potassium Chloride Carbon Dioxide Anion Gap BUN Creatinine GFR Calculation BUN/Creatinine Ratio Glucose Calculated Osmolality Calcium Magnesium Iron 26 L TIBC 369 % Saturation 7.0 L Ferritin 18.2 L B-Natriuretic Peptide DS: Provider Date of admission: 06/23/17 12:51 Primary care physician: . No PCP Attending physician on admission: Kristy Fitzpatrick MD Consults: 06/23/17 14:51 Consult to Physician [CONS] Routine Comment: chf Consulting Provider: Cardiology - [facility] Person Notified: [email or web address] Date Notified: 06/24/17 Time Notified: 08:30 06/28/17 08:39 Consult to Physical Therapy [CONS] Routine Reason for Physical Therapy: Evaluate and Treat Discharging clinician: Joey Beach, REGISTERED PHARMACIST
[2017-07-02 12:15] VITALS: BP 112/60
== END 2017-07-02 14:53 | disposition home health service (06) | DRG 291 ==
LOC: N.ED 11:18 → SUATTDRO 12:51 → N.EDINP 12:51 → N.TELEN 13:25
PROVIDERS: ADMIT Hospitalist; ATTEND Internal Medicine

== ENCOUNTER 2017-07-10 16:09 | Inpatient (IN) ==
[2017-07-10] MEDS ORDERED: PANTOPRAZOLE 40 MG VIAL IV STA (17:36)
[2017-07-10 17:46] LABS: Basophils # 0.1 10*3/uL (0.0-0.2); Basophils % 1.4 % (0.0-0.8); Eosinophils # 0.3 10*3/uL (0.0-0.87); Eosinophils % 6.9 % (0.00-10.9); Hemoglobin 7.5 GM/DL (14.0-18.0); Immature Granulocytes % 0.3 %; Immature Granulocytes Absolute 0.01 #; Lymphocytes # 1.1 10*3/uL (1.4-4.0); Lymphocytes % 29.1 % (21.2-54.2); Mean Corpuscular Hemoglobin 22 PG (27-34); Mean Corpuscular Volume 71.6 FL (87-102); Mean Platelet Volume 10.6 FL (9.6-12.0); Monocytes # 0.6 10*3/uL (0.11-0.8); Monocytes % 16.8 % (1.7-12.7); Neutrophils # 1.7 10*3/uL (1.4-7.4); Neutrophils % 45.5 % (38.7-73.9); Platelet Count 254 T/CUMM (130-400); Red Blood Count 3.49 MC/CUMM (3.8-5.5); White Blood Count 3.6 T/CUMM (4-12)
[2017-07-10 17:56] LABS: INR 1.2; PT Patient Result 12.1 SECS
[2017-07-10] MEDS ORDERED: PANTOPRAZOLE 40 MG VIAL IV ONE (18:05)
[2017-07-10 18:06] LABS: Alanine Aminotransferase 19 U/L (16-61); Albumin 2.8 G/DL (3.4-5.0); Alkaline Phosphatase 75 U/L (45-117); Aspartate Amino Transferase 28 U/L (0-37); Bilirubin,Total < 0.39 MG/DL (0.2-1.0); Blood Urea Nitrogen 43 MG/DL (7-18); Calcium 8.7 MG/DL (8.5-10.1); Glucose 85 MG/DL (74-106); Osmolality,Calculated 284.7 MOS/KG (273-304); Potassium 3.7 MMOL/L (3.5-5.1); Sodium 138 MMOL/L (136-145); Total Protein 6.6 G/DL (6.4-8.3)
[2017-07-10 18:15] LABS: Eosinophils 4 % (0-10); Hypochromasia 2+; Lymphocytes 22 % (20-55); Platelet Estimate Adequate; Segmented Neutrophils 64 % (50-85); Total Cells Counted 100
[2017-07-10 18:16] LABS: Anisocytosis 1+; Microcytosis 1+; Ovalocytes 1+; Schistocytes Few; Target Cells Slight
[2017-07-10] MEDS ORDERED: ACETAMINOPHEN 325 MG TABLET PO PRN (19:42)
[2017-07-10] MEDS ORDERED: ONDANSETRON 4 MG/2 ML VIAL IV PRN (19:42)
[2017-07-10 20:09] LABS: Hematocrit 24.3 VOL% (42.0-52.0); Hemoglobin 7.3 GM/DL (14.0-18.0)
[2017-07-10 20:15] LABS: Ammonia 25 UMOL/L (11-32)
[2017-07-10] MEDS: PANTOPRAZOLE 40 MG VIAL IV SCH (21:53)
[2017-07-10] MEDS: TAMSULOSIN 0.4 MG CAPSULE PO SCH (21:54)
[2017-07-11 02:31] LABS: Basophils # 0.1 10*3/uL (0.0-0.2); Basophils % 1.4 % (0.0-0.8); Eosinophils # 0.3 10*3/uL (0.0-0.87); Eosinophils % 8.1 % (0.00-10.9); Hematocrit 24.1 VOL% (42.0-52.0); Hemoglobin 7.1 GM/DL (14.0-18.0); Immature Granulocytes % 0.6 %; Immature Granulocytes Absolute 0.02 #; Lymphocytes # 1.1 10*3/uL (1.4-4.0); Lymphocytes % 30.9 % (21.2-54.2); Mean Corpuscular HGB Conc 29.5 GM/DL (32-36); Mean Corpuscular Hemoglobin 21 PG (27-34); Mean Corpuscular Volume 71.7 FL (87-102); Mean Platelet Volume 10.5 FL (9.6-12.0); Monocytes # 0.6 10*3/uL (0.11-0.8); Monocytes % 17.6 % (1.7-12.7); Neutrophils # 1.4 10*3/uL (1.4-7.4); Neutrophils % 41.4 % (38.7-73.9); Platelet Count 247 T/CUMM (130-400); Red Blood Count 3.36 MC/CUMM (3.8-5.5); Red Cell Distribution Width 20.9 % (9.3-17.3); White Blood Count 3.5 T/CUMM (4-12)
[2017-07-11 02:50] LABS: Calcium 8.1 MG/DL (8.5-10.1); Osmolality,Calculated 285.7 MOS/KG (273-304); Potassium 3.7 MMOL/L (3.5-5.1)
[2017-07-11 04:01] LABS: Anisocytosis 1+; Band Neutrophils 3 % (0-10); Eosinophils 9 % (0-10); Hypochromasia 2+; Lymphocytes 38 % (20-55); Myelocytes 7 %; Segmented Neutrophils 38 % (50-85); Total Cells Counted 100
[2017-07-11 04:02] LABS: Platelet Estimate Adequate; Schistocytes 1+
[2017-07-11] MEDS: PANTOPRAZOLE 40 MG VIAL IV SCH ×2 (08:23→21:17)
[2017-07-11 08:29] LABS: Hematocrit 23.4 VOL% (42.0-52.0); Hemoglobin 7.1 GM/DL (14.0-18.0)
[2017-07-11] MEDS ORDERED: SODIUM CHLORIDE 0.9% 250 ML IV PRN (13:10)
[2017-07-11] MEDS: AMIODARONE 200 MG TABLET PO SCH (13:43)
[2017-07-11] MEDS: FUROSEMIDE 40 MG TABLET PO SCH ×2 (13:43→15:45)
[2017-07-11] MEDS: NEBIVOLOL 10 MG TABLET PO SCH (13:43)
[2017-07-11] MEDS: SIMVASTATIN 20 MG TABLET PO SCH (13:44)
[2017-07-11] MEDS ORDERED: FUROSEMIDE 40 MG/4 ML VIAL IV ONE (15:11)
[2017-07-11] MEDS: TAMSULOSIN 0.4 MG CAPSULE PO SCH (21:18)
[2017-07-12 02:12] LABS: Basophils # 0.1 10*3/uL (0.0-0.2); Eosinophils # 0.4 10*3/uL (0.0-0.87); Eosinophils % 8.4 % (0.00-10.9); Hematocrit 30.1 VOL% (42.0-52.0); Immature Granulocytes % 0.2 %; Immature Granulocytes Absolute 0.01 #; Lymphocytes % 20.3 % (21.2-54.2); Mean Corpuscular HGB Conc 31.2 GM/DL (32-36); Mean Corpuscular Hemoglobin 23 PG (27-34); Mean Corpuscular Volume 73.4 FL (87-102); Mean Platelet Volume 10.3 FL (9.6-12.0); Monocytes # 0.6 10*3/uL (0.11-0.8); Monocytes % 13.4 % (1.7-12.7); Neutrophils # 2.7 10*3/uL (1.4-7.4); Neutrophils % 56.7 % (38.7-73.9); Platelet Count 269 T/CUMM (130-400); White Blood Count 4.8 T/CUMM (4-12)
[2017-07-12 02:16] LABS: Hemoglobin 9.4 GM/DL (14.0-18.0)
[2017-07-12 02:29] LABS: Calcium 8.6 MG/DL (8.5-10.1); Magnesium 1.9 MG/DL (1.8-2.4); Osmolality,Calculated 281.7 MOS/KG (273-304); Potassium 4.1 MMOL/L (3.5-5.1)
[2017-07-12] MEDS: FUROSEMIDE 40 MG TABLET PO SCH ×2 (09:20→16:16)
[2017-07-12] MEDS: PANTOPRAZOLE 40 MG VIAL IV SCH ×2 (09:47→20:08)
[2017-07-12] MEDS ORDERED: SODIUM CHLORIDE 0.65% NASAL SPRAY 45 ML BOTTLE BOTH NARES PRN (11:55)
[2017-07-12] MEDS ORDERED: LIDOCAINE 1% 5 ML VIAL ONE (14:00)
[2017-07-12] MEDS ORDERED: PROPOFOL 200 MG/20 ML VIAL IV ONE (14:00)
[2017-07-12] MEDS: NEBIVOLOL 10 MG TABLET PO SCH (16:15)
[2017-07-12] MEDS: AMIODARONE 200 MG TABLET PO SCH (16:16)
[2017-07-12] MEDS: SIMVASTATIN 20 MG TABLET PO SCH (16:16)
[2017-07-12] MEDS: TAMSULOSIN 0.4 MG CAPSULE PO SCH (20:08)
[2017-07-13 06:08] LABS: Basophils % 0.8 % (0.0-0.8); Eosinophils # 0.4 10*3/uL (0.0-0.87); Eosinophils % 7.6 % (0.00-10.9); Hemoglobin 8.7 GM/DL (14.0-18.0); Immature Granulocytes % 0.4 %; Immature Granulocytes Absolute 0.02 #; Lymphocytes % 18.1 % (21.2-54.2); Mean Corpuscular HGB Conc 31.1 GM/DL (32-36); Mean Corpuscular Hemoglobin 23 PG (27-34); Mean Corpuscular Volume 73.7 FL (87-102); Mean Platelet Volume 10.8 FL (9.6-12.0); Monocytes # 0.6 10*3/uL (0.11-0.8); Monocytes % 11.8 % (1.7-12.7); Neutrophils # 3.2 10*3/uL (1.4-7.4); Neutrophils % 61.3 % (38.7-73.9); Platelet Count 261 T/CUMM (130-400); Red Cell Distribution Width 21.2 % (9.3-17.3); White Blood Count 5.3 T/CUMM (4-12)
[2017-07-13 06:36] LABS: Calcium 8.5 MG/DL (8.5-10.1); Magnesium 1.9 MG/DL (1.8-2.4); Osmolality,Calculated 275.1 MOS/KG (273-304); Potassium 3.8 MMOL/L (3.5-5.1)
[2017-07-13] MEDS: NEBIVOLOL 10 MG TABLET PO SCH (08:51)
[2017-07-13] MEDS: PANTOPRAZOLE 40 MG VIAL IV SCH ×2 (08:51→21:02)
[2017-07-13] MEDS: AMIODARONE 200 MG TABLET PO SCH (08:52)
[2017-07-13] MEDS: SIMVASTATIN 20 MG TABLET PO SCH (08:52)
[2017-07-13] MEDS: FUROSEMIDE 40 MG TABLET PO SCH ×2 (08:52→16:03)
[2017-07-13] MEDS: TAMSULOSIN 0.4 MG CAPSULE PO SCH (21:02)
[2017-07-14 05:54] LABS: Basophils % 0.4 % (0.0-0.8); Eosinophils # 0.3 10*3/uL (0.0-0.87); Eosinophils % 4.9 % (0.00-10.9); Hematocrit 29.3 VOL% (42.0-52.0); Hemoglobin 9.1 GM/DL (14.0-18.0); Immature Granulocytes % 0.4 %; Immature Granulocytes Absolute 0.03 #; Lymphocytes # 0.6 10*3/uL (1.4-4.0); Lymphocytes % 8.2 % (21.2-54.2); Mean Corpuscular HGB Conc 31.1 GM/DL (32-36); Mean Corpuscular Hemoglobin 23 PG (27-34); Mean Corpuscular Volume 73.3 FL (87-102); Mean Platelet Volume 10.8 FL (9.6-12.0); Monocytes # 0.6 10*3/uL (0.11-0.8); Monocytes % 8.2 % (1.7-12.7); Neutrophils # 5.3 10*3/uL (1.4-7.4); Neutrophils % 77.9 % (38.7-73.9); Platelet Count 247 T/CUMM (130-400); Red Cell Distribution Width 21.6 % (9.3-17.3); White Blood Count 6.7 T/CUMM (4-12)
[2017-07-14 06:27] LABS: Calcium 8.2 MG/DL (8.5-10.1); Magnesium 1.8 MG/DL (1.8-2.4); Osmolality,Calculated 271.2 MOS/KG (273-304); Potassium 3.9 MMOL/L (3.5-5.1)
[2017-07-14] MEDS: PANTOPRAZOLE 40 MG VIAL IV SCH (08:45)
[2017-07-14] MEDS: NEBIVOLOL 10 MG TABLET PO SCH (08:46)
[2017-07-14] MEDS: SIMVASTATIN 20 MG TABLET PO SCH (08:47)
[2017-07-14] MEDS: FUROSEMIDE 40 MG TABLET PO SCH (08:47)
[2017-07-14] MEDS: AMIODARONE 200 MG TABLET PO SCH (08:47)
[2017-07-14] MEDS ORDERED: TUBERCULIN SKIN TEST 0.1 ML SYRINGE INTRADERM ONE (11:00)
[2017-07-14 12:08] VITALS: BP 119/66
== END 2017-07-14 15:02 | disposition home or self-care (01) | DRG 377 ==
LOC: EDBD → EDUNIT# → N.ED 16:09 → SUATTDRO 19:35 → N.EDINP 19:35 → N.TELEN 20:38
PROVIDERS: ADMIT Internal Medicine; ATTEND Hospitalist

== ENCOUNTER 2018-08-08 17:52 | Inpatient (IN) ==
[2018-08-08] MEDS ORDERED: ONDANSETRON 4 MG/2 ML VIAL ONE (18:12)
[2018-08-08] MEDS ORDERED: ONDANSETRON 4 MG/2 ML VIAL IV STA (18:17)
[2018-08-08] MEDS ORDERED: SODIUM CHLORIDE 0.9% 500 ML IV STA (18:29)
[2018-08-08 18:38] LABS: Basophils % 0.6 % (0.0-0.8); Eosinophils % 0.5 % (0.00-10.9); Hematocrit 33.3 VOL% (42.0-52.0); Hemoglobin 10.2 GM/DL (14.0-18.0); Immature Granulocytes % 0.6 %; Immature Granulocytes Absolute 0.04 #; Lymphocytes # 0.4 10*3/uL (1.4-4.0); Lymphocytes % 5.8 % (21.2-54.2); Mean Corpuscular HGB Conc 30.6 GM/DL (32-36); Mean Corpuscular Hemoglobin 27 PG (27-34); Mean Corpuscular Volume 89.5 FL (87-102); Mean Platelet Volume 11.5 FL (9.6-12.0); Monocytes # 0.4 10*3/uL (0.11-0.8); Monocytes % 6.2 % (1.7-12.7); Neutrophils # 5.7 10*3/uL (1.4-7.4); Neutrophils % 86.3 % (38.7-73.9); Platelet Count 182 T/CUMM (130-400); Red Blood Count 3.72 MC/CUMM (3.8-5.5); Red Cell Distribution Width 16.6 % (9.3-17.3); White Blood Count 6.6 T/CUMM (4-12)
[2018-08-08 18:47] LABS: PT Patient Result 10.4 SECS
[2018-08-08 18:52] LABS: Apearance,Urine CLEAR (Clear); Bacteria,Urine Occasional /HPF (Few); Bilirubin,Urine Negative (Negative); Blood, Urine Small mg/dL (Negative); Glucose,Urine (UA) Negative (Negative); Hyaline Casts,Urine 1 /LPF (0-3); Ketones,Urine Negative (Negative); Mucus,Urine Occasional /LPF (Occasional); Nitrite,Urine Negative (Negative); Protein,Urine Negative; RBC,Urine 2 /HPF (0-4); Urine Color Yellow (Yellow); Urine Urobilinogen < 2.0 EU/DL (0.2-1.0); WBC,Urine <1 /HPF (0-6)
[2018-08-08 18:56] LABS: Ammonia 13 UMOL/L (11-32)
[2018-08-08 19:00] LABS: Alanine Aminotransferase 29 U/L (16-61); Albumin 3.1 G/DL (3.4-5.0); Alkaline Phosphatase 97 U/L (45-117); Aspartate Amino Transferase 33 U/L (0-37); Bilirubin,Total < 0.39 MG/DL (0.2-1.0); Blood Urea Nitrogen 31 MG/DL (7-18); Calcium 8.5 MG/DL (8.5-10.1); Glucose 143 MG/DL (74-106); Osmolality,Calculated 283.7 MOS/KG (273-304); Sodium 138 MMOL/L (136-145); Total Protein 7.2 G/DL (6.4-8.3)
[2018-08-08 19:06] LABS: Troponin I 0.058 NG/ML (0.00-0.045)
[2018-08-08 19:09] LABS: Barbiturates Screen,Urine Negative (Negative); Benzodiazepines Screen,Urine Negative (Negative); Cannabinoid Screen,Urine Negative (Negative); Opiate Screen,Urine Negative (Negative); Phencyclidine Screen,Urine Negative (Negative)
[2018-08-08] MEDS ORDERED: ONDANSETRON 4 MG/2 ML VIAL IV PRN (20:26)
[2018-08-08] MEDS ORDERED: MORPHINE 4 MG/1 ML VIAL IV PRN (20:26)
[2018-08-08] MEDS ORDERED: LORazepam 2 MG/1 ML VIAL IV PRN (23:41)
[2018-08-09] MEDS: TAMSULOSIN 0.4 MG CAPSULE PO SCH ×2 (00:43→20:30)
[2018-08-09] MEDS: ATORVASTATIN 40 MG TABLET PO SCH ×2 (00:44→20:30)
[2018-08-09] MEDS: CHLORHEXIDINE 0.12% ORAL RINSE 60 ML BOTTLE SWISH/SPIT SCH ×4 (00:44→20:31)
[2018-08-09] MEDS: PANTOPRAZOLE 40 MG TABLET PO SCH ×3 (00:44→20:30)
[2018-08-09 05:17] LABS: Basophils % 0.6 % (0.0-0.8); Hematocrit 33.2 VOL% (42.0-52.0); Hemoglobin 10.2 GM/DL (14.0-18.0); Immature Granulocytes % 0.3 %; Immature Granulocytes Absolute 0.02 #; Lymphocytes # 0.7 10*3/uL (1.4-4.0); Lymphocytes % 10.5 % (21.2-54.2); Mean Corpuscular HGB Conc 30.7 GM/DL (32-36); Mean Corpuscular Hemoglobin 27 PG (27-34); Mean Platelet Volume 11.3 FL (9.6-12.0); Monocytes # 0.7 10*3/uL (0.11-0.8); Monocytes % 9.9 % (1.7-12.7); Neutrophils # 5.6 10*3/uL (1.4-7.4); Neutrophils % 78.7 % (38.7-73.9); Platelet Count 170 T/CUMM (130-400); Red Blood Count 3.73 MC/CUMM (3.8-5.5); Red Cell Distribution Width 16.7 % (9.3-17.3); White Blood Count 7.1 T/CUMM (4-12)
[2018-08-09 05:49] LABS: Calcium 8.5 MG/DL (8.5-10.1); Osmolality,Calculated 286.3 MOS/KG (273-304); Potassium 4.1 MMOL/L (3.5-5.1)
[2018-08-09] MEDS: LEVOTHYROXINE 137 MCG TABLET PO SCH (06:41)
[2018-08-09] MEDS: FUROSEMIDE 40 MG TABLET PO SCH ×2 (14:01→15:52)
[2018-08-09] MEDS: NEBIVOLOL 5 MG TABLET PO SCH (15:50)
[2018-08-09] MEDS: ASPIRIN EC 81 MG TABLET PO SCH (15:51)
[2018-08-09] MEDS: AMIODARONE 200 MG TABLET PO SCH (15:52)
[2018-08-09] MEDS ORDERED: VANCOMYCIN INJ 1,000 MG in SODIUM CHLORIDE 0.9% 250 ML IV ONE (17:00)
[2018-08-10 04:39] LABS: Basophils % 0.3 % (0.0-0.8); Eosinophils # 0.2 10*3/uL (0.0-0.87); Eosinophils % 2.7 % (0.00-10.9); Hematocrit 29.1 VOL% (42.0-52.0); Hemoglobin 9.1 GM/DL (14.0-18.0); Immature Granulocytes % 0.3 %; Immature Granulocytes Absolute 0.02 #; Lymphocytes # 0.5 10*3/uL (1.4-4.0); Lymphocytes % 8.2 % (21.2-54.2); Mean Corpuscular HGB Conc 31.3 GM/DL (32-36); Mean Corpuscular Hemoglobin 29 PG (27-34); Mean Corpuscular Volume 91.2 FL (87-102); Mean Platelet Volume 11.2 FL (9.6-12.0); Monocytes # 0.6 10*3/uL (0.11-0.8); Monocytes % 9.8 % (1.7-12.7); Neutrophils % 78.7 % (38.7-73.9); Platelet Count 144 T/CUMM (130-400); Red Blood Count 3.19 MC/CUMM (3.8-5.5); Red Cell Distribution Width 16.7 % (9.3-17.3); White Blood Count 6.3 T/CUMM (4-12)
[2018-08-10 05:12] LABS: Calcium 8.2 MG/DL (8.5-10.1); Osmolality,Calculated 287.3 MOS/KG (273-304)
[2018-08-10] MEDS: LEVOTHYROXINE 137 MCG TABLET PO SCH (06:15)
[2018-08-10] MEDS: AMIODARONE 200 MG TABLET PO SCH (10:12)
[2018-08-10] MEDS: ASPIRIN EC 81 MG TABLET PO SCH (10:12)
[2018-08-10] MEDS: NEBIVOLOL 5 MG TABLET PO SCH (10:12)
[2018-08-10] MEDS: PANTOPRAZOLE 40 MG TABLET PO SCH ×2 (10:12→20:43)
[2018-08-10] MEDS: FUROSEMIDE 40 MG TABLET PO SCH ×2 (10:12→15:00)
[2018-08-10] MEDS: CHLORHEXIDINE 0.12% ORAL RINSE 60 ML BOTTLE SWISH/SPIT SCH ×3 (10:13→20:43)
[2018-08-10] MEDS: ATORVASTATIN 40 MG TABLET PO SCH (20:42)
[2018-08-10] MEDS: levETIRAcetam 500 MG TABLET PO SCH (20:42)
[2018-08-10] MEDS: TAMSULOSIN 0.4 MG CAPSULE PO SCH (20:43)
[2018-08-11] MEDS: LEVOTHYROXINE 137 MCG TABLET PO SCH (06:16)
[2018-08-11] MEDS: FUROSEMIDE 40 MG TABLET PO SCH (08:31)
[2018-08-11] MEDS: NEBIVOLOL 5 MG TABLET PO SCH (08:31)
[2018-08-11] MEDS: AMIODARONE 200 MG TABLET PO SCH (08:31)
[2018-08-11] MEDS: levETIRAcetam 500 MG TABLET PO SCH (08:31)
[2018-08-11] MEDS: ASPIRIN EC 81 MG TABLET PO SCH (08:31)
[2018-08-11] MEDS: PANTOPRAZOLE 40 MG TABLET PO SCH (08:31)
[2018-08-11] MEDS: CHLORHEXIDINE 0.12% ORAL RINSE 60 ML BOTTLE SWISH/SPIT SCH (08:32)
[2018-08-11 12:40] VITALS: BP 90/62
== END 2018-08-11 15:24 | DRG 101 ==
LOC: EDBD → EDUNIT# → N.ED 17:52 → N.EDINP 20:26 → SUATTDRO 20:26 → N.5E 22:40
PROVIDERS: ADMIT Family Medicine; ATTEND Hospitalist

== ENCOUNTER 2020-05-22 10:03 | Inpatient (IN) ==
[2020-05-22] MEDS ORDERED: LORazepam 2 MG/1 ML VIAL ONE (10:04)
[2020-05-22] MEDS ORDERED: PHENYTOIN INJ 1,500 MG in SODIUM CHLORIDE 0.9% 100 ML IV STA (10:06)
[2020-05-22] MEDS ORDERED: LORazepam 2 MG/1 ML VIAL IV STA (10:06)
[2020-05-22] MEDS ORDERED: levETIRAcetam 500 MG/5 ML VIAL IV ONE (10:12)
[2020-05-22 10:57] LABS: Basophils # 0.1 10*3/uL (0.0-0.2); Basophils % 1.2 % (0.0-0.8); Eosinophils # 0.3 10*3/uL (0.0-0.87); Eosinophils % 5.1 % (0.00-10.9); Hemoglobin 12.1 GM/DL (14.0-18.0); Immature Granulocytes % 0.2 %; Immature Granulocytes Absolute 0.01 #; Lymphocytes # 1.1 10*3/uL (1.4-4.0); Lymphocytes % 21.8 % (21.2-54.2); Mean Corpuscular HGB Conc 31.8 GM/DL (32-36); Mean Corpuscular Volume 92.9 FL (87-102); Monocytes % 9.7 % (1.7-12.7); Platelet Count 161 T/CUMM (130-400); Red Blood Count 4.09 MC/CUMM (3.8-5.5); Red Cell Distribution Width 14.3 % (9.3-17.3); White Blood Count 5.1 T/CUMM (4-12)
[2020-05-22 11:11] LABS: Alanine Aminotransferase 26 U/L (16-61); Albumin 3.3 G/DL (3.4-5.0); Alkaline Phosphatase 126 U/L (45-117); Aspartate Amino Transferase 25 U/L (0-37); Bilirubin,Total < 0.39 MG/DL (0.2-1.0); Blood Urea Nitrogen 26 MG/DL (7-18); Estimated Glom Filtration Rate 26 ML/MIN; Glucose 93 MG/DL (74-106); Osmolality,Calculated 285.3 MOS/KG (273-304); Total Protein 7.2 G/DL (6.4-8.3)
[2020-05-22 11:27] LABS: Apearance,Urine CLEAR (Clear); Bilirubin,Urine Negative (Negative); Blood, Urine Moderate mg/dL (Negative); Glucose,Urine (UA) Negative (Negative); Hyaline Casts,Urine 6 /LPF (0-3); Ketones,Urine Negative (Negative); Mucus,Urine Occasional /LPF (Occasional); Nitrite,Urine Negative (Negative); Protein,Urine 30 MG/DL; RBC,Urine 12 /HPF (0-4); Urine Color Yellow (Yellow); Urine Specific Gravity 1.017 (1.001-1.035); Urine Urobilinogen < 2.0 EU/DL (0.2-1.0); WBC,Urine <1 /HPF (0-6)
[2020-05-22 11:34] LABS: Barbiturates Screen,Urine Negative (Negative); Benzodiazepines Screen,Urine Positive (Negative); Cannabinoid Screen,Urine Negative (Negative); Opiate Screen,Urine Negative (Negative); Phencyclidine Screen,Urine Negative (Negative)
[2020-05-22] MEDS ORDERED: ONDANSETRON 4 MG/2 ML VIAL IV PRN (11:58)
[2020-05-22] MEDS ORDERED: LORazepam 2 MG/1 ML VIAL IV PRN (12:11)
[2020-05-22] MEDS ORDERED: hydrALAZINE 20 MG/1 ML VIAL IV PRN (12:42)
[2020-05-22] MEDS: SODIUM CHLORIDE 0.9% 1,000 ML IV SCH ×2 (13:25→22:50)
[2020-05-22 13:44] LABS: Apearance,Urine CLEAR (Clear); Bacteria,Urine Occasional /HPF (Few); Bilirubin,Urine Negative (Negative); Blood, Urine Small mg/dL (Negative); Glucose,Urine (UA) Negative (Negative); Hyaline Casts,Urine 1 /LPF (0-3); Ketones,Urine Negative (Negative); Mucus,Urine Occasional /LPF (Occasional); Nitrite,Urine Negative (Negative); Protein,Urine Negative; RBC,Urine 10 /HPF (0-4); Squamous Epithelial Cell,Urine Occasional /HPF (0-10); Urine Color Yellow (Yellow); Urine Specific Gravity 1.016 (1.001-1.035); Urine Urobilinogen < 2.0 EU/DL (0.2-1.0); WBC,Urine 2 /HPF (0-6)
[2020-05-22] MEDS: ENOXAPARIN 30 MG/0.3 ML SYRINGE SUBCUT SCH (15:09)
[2020-05-22] MEDS: PIPERACILLIN/TAZOBACTAM 3,375 MG in SODIUM CHLORIDE 0.9% 100 ML IV SCH (15:09)
[2020-05-23] MEDS: PIPERACILLIN/TAZOBACTAM 3,375 MG in SODIUM CHLORIDE 0.9% 100 ML IV SCH ×2 (01:31→14:37)
[2020-05-23 05:00] LABS: Calcium 8.5 MG/DL (8.5-10.1); Osmolality,Calculated 288.8 MOS/KG (273-304)
[2020-05-23] MEDS ORDERED: MAGNESIUM HYDROXIDE SUSP 30 ML UDCUP PO PRN (08:23)
[2020-05-23] MEDS: ASPIRIN EC 81 MG TABLET PO SCH (08:52)
[2020-05-23] MEDS: FERROUS SULFATE 325 MG TABLET PO SCH ×2 (08:52→20:44)
[2020-05-23] MEDS: levETIRAcetam 500 MG TABLET PO SCH ×2 (08:52→20:44)
[2020-05-23] MEDS: DOCUSATE SODIUM 100 MG CAPSULE PO SCH (08:52)
[2020-05-23] MEDS: FUROSEMIDE 40 MG TABLET PO SCH (08:52)
[2020-05-23] MEDS ORDERED: AMIODARONE 200 MG TABLET PO SCH (09:00)
[2020-05-23] MEDS: SODIUM CHLORIDE 0.9% 1,000 ML IV SCH (09:19)
[2020-05-23] MEDS: OMEGA 3 ACID ETHYL ESTERS 1 GM CAPSULE PO SCH ×2 (10:42→20:44)
[2020-05-23] MEDS: ENOXAPARIN 30 MG/0.3 ML SYRINGE SUBCUT SCH (11:49)
[2020-05-23] MEDS: ATORVASTATIN 40 MG TABLET PO SCH (20:44)
[2020-05-24] MEDS: PIPERACILLIN/TAZOBACTAM 3,375 MG in SODIUM CHLORIDE 0.9% 100 ML IV SCH ×2 (01:37→14:59)
[2020-05-24] MEDS: FAMOTIDINE 20 MG TABLET PO SCH (06:11)
[2020-05-24] MEDS: LEVOTHYROXINE 175 MCG TABLET PO SCH (06:11)
[2020-05-24] MEDS: levETIRAcetam 500 MG TABLET PO SCH ×2 (09:17→20:09)
[2020-05-24] MEDS: DOCUSATE SODIUM 100 MG CAPSULE PO SCH (09:17)
[2020-05-24] MEDS: FUROSEMIDE 40 MG TABLET PO SCH (09:17)
[2020-05-24] MEDS: OMEGA 3 ACID ETHYL ESTERS 1 GM CAPSULE PO SCH ×2 (09:17→20:10)
[2020-05-24] MEDS: FERROUS SULFATE 325 MG TABLET PO SCH ×2 (09:17→20:10)
[2020-05-24] MEDS: ASPIRIN EC 81 MG TABLET PO SCH (09:17)
[2020-05-24] MEDS: ENOXAPARIN 30 MG/0.3 ML SYRINGE SUBCUT SCH (12:43)
[2020-05-24] MEDS ORDERED: ACETAMINOPHEN 325 MG TABLET PO PRN (19:26)
[2020-05-24] MEDS: ATORVASTATIN 40 MG TABLET PO SCH (20:09)
[2020-05-25] MEDS: PIPERACILLIN/TAZOBACTAM 3,375 MG in SODIUM CHLORIDE 0.9% 100 ML IV SCH (02:09)
[2020-05-25] MEDS: FAMOTIDINE 20 MG TABLET PO SCH (06:06)
[2020-05-25] MEDS: LEVOTHYROXINE 175 MCG TABLET PO SCH (06:06)
[2020-05-25] MEDS: OMEGA 3 ACID ETHYL ESTERS 1 GM CAPSULE PO SCH (08:54)
[2020-05-25] MEDS: levETIRAcetam 500 MG TABLET PO SCH (08:54)
[2020-05-25] MEDS: FUROSEMIDE 40 MG TABLET PO SCH (08:54)
[2020-05-25] MEDS: FERROUS SULFATE 325 MG TABLET PO SCH (08:55)
[2020-05-25] MEDS: DOCUSATE SODIUM 100 MG CAPSULE PO SCH (08:55)
[2020-05-25] MEDS: ASPIRIN EC 81 MG TABLET PO SCH (08:55)
[2020-05-25 11:57] VITALS: BP 121/74
[2020-05-25] MEDS: ENOXAPARIN 30 MG/0.3 ML SYRINGE SUBCUT SCH (13:14)
[2020-05-26] MEDS ORDERED: ERGOCALCIFEROL 50,000 UNIT CAPSULE PO SCH (09:00)
== END 2020-05-25 14:00 | DRG 100 ==
LOC: N.ED 10:03 → N.EDINP 11:58 → SUATTDRO 11:58 → N.ICU 12:14 → N.5E 05-23 12:46
PROVIDERS: ADMIT Family Medicine; ATTEND Internal Medicine

== ENCOUNTER 2020-09-16 13:28 | Inpatient (IN) ==
[2020-09-16 15:42] LABS: Bacteria,Urine Occasional /HPF (Few); Bilirubin,Urine Negative (Negative); Blood, Urine Negative (Negative); Glucose,Urine (UA) Negative (Negative); Ketones,Urine Negative (Negative); Mucus,Urine Occasional /LPF (Occasional); Nitrite,Urine Negative (Negative); Protein,Urine 100 MG/DL; RBC,Urine 1 /HPF (0-4); Squamous Epithelial Cell,Urine Occasional /HPF (0-10); Urine Appearance CLEAR (Clear); Urine Color Yellow (Yellow); Urine Specific Gravity 1.019 (1.001-1.035); Urine Urobilinogen < 2.0 EU/DL (0.2-1.0); WBC,Urine 4 /HPF (0-6)
[2020-09-16 16:08] LABS: Basophils % 0.6 % (0.0-0.8); Eosinophils % 0.4 % (0.00-10.9); Hematocrit 41.7 VOL% (42.0-52.0); Hemoglobin 13.3 GM/DL (14.0-18.0); Immature Granulocytes % 0.4 %; Immature Granulocytes Absolute 0.02 #; Lymphocytes # 0.7 10*3/uL (1.4-4.0); Lymphocytes % 14.6 % (21.2-54.2); Mean Corpuscular HGB Conc 31.9 GM/DL (32-36); Mean Corpuscular Volume 90.5 FL (87-102); Mean Platelet Volume 10.7 FL (9.6-12.0); Monocytes % 10.8 % (1.7-12.7); Neutrophils % 73.2 % (38.7-73.9); Platelet Count 145 T/CUMM (130-400); Red Blood Count 4.61 MC/CUMM (3.8-5.5); Red Cell Distribution Width 14.6 % (9.3-17.3); White Blood Count 4.8 T/CUMM (4-12)
[2020-09-16 16:30] LABS: Alanine Aminotransferase 656 U/L (16-61); Albumin 3.3 G/DL (3.4-5.0); Alkaline Phosphatase 132 U/L (45-117); Aspartate Amino Transferase 835 U/L (0-37); Blood Urea Nitrogen 29 MG/DL (7-18); Calcium 8.6 MG/DL (8.5-10.1); Estimated Glom Filtration Rate 26 ML/MIN; Glucose 68 MG/DL (74-106); Osmolality,Calculated 280.5 MOS/KG (273-304); Total Protein 7.7 G/DL (6.4-8.3)
[2020-09-16] MEDS ORDERED: cefTRIAXone 1,000 MG in SODIUM CHLORIDE 0.9% 100 ML IV STA (16:38)
[2020-09-16] MEDS ORDERED: SODIUM CHLORIDE 0.9% 1,000 ML IV STA (16:38)
[2020-09-16] MEDS ORDERED: IBUPROFEN 600 MG TABLET PO STA (19:24)
[2020-09-16] MEDS ORDERED: IBUPROFEN 600 MG TABLET ONE (19:25)
[2020-09-16] MEDS ORDERED: GLUCAGON 1 MG VIAL IM PRN (20:00)
[2020-09-16] MEDS ORDERED: DEXTROSE 50% 25 GM/50 ML VIAL IV PRN (20:00)
[2020-09-16] MEDS ORDERED: ACETAMINOPHEN 325 MG TABLET PO PRN (20:00)
[2020-09-16] MEDS ORDERED: ONDANSETRON 4 MG/2 ML VIAL IV PRN (20:00)
[2020-09-16 20:24] LABS: Hepatitis B Core IgM Quant 0.07 Index; Hepatitis B Surface Ag Quant < 0.10 Index; Hepatitis B Surface Ag Result Negative (Negative); Hepatitis C Virus Ab Result Negative (Negative)
[2020-09-16] MEDS ORDERED: FUROSEMIDE 40 MG/4 ML VIAL IV STA (20:25)
[2020-09-16] MEDS ORDERED: ATORVASTATIN 40 MG TABLET PO SCH (22:30)
[2020-09-17] MEDS: levETIRAcetam 500 MG TABLET PO SCH ×3 (00:12→20:51)
[2020-09-17 05:52] LABS: Basophils % 0.8 % (0.0-0.8); Hematocrit 38.6 VOL% (42.0-52.0); Hemoglobin 12.3 GM/DL (14.0-18.0); Immature Granulocytes % 0.3 %; Immature Granulocytes Absolute 0.01 #; Lymphocytes # 0.8 10*3/uL (1.4-4.0); Lymphocytes % 21.7 % (21.2-54.2); Mean Corpuscular HGB Conc 31.9 GM/DL (32-36); Mean Corpuscular Volume 91.3 FL (87-102); Mean Platelet Volume 11.1 FL (9.6-12.0); Monocytes % 6.8 % (1.7-12.7); Neutrophils % 70.4 % (38.7-73.9); Red Blood Count 4.23 MC/CUMM (3.8-5.5); Red Cell Distribution Width 14.6 % (9.3-17.3); White Blood Count 3.8 T/CUMM (4-12)
[2020-09-17 06:12] LABS: Albumin 2.9 G/DL (3.4-5.0); Bilirubin,Direct 0.15 MG/DL (0.0-0.20); Bilirubin,Indirect 0.3 MG/DL (0.0-1.0); Bilirubin,Total 0.4 MG/DL (0.2-1.0); Calcium 8.1 MG/DL (8.5-10.1); Osmolality,Calculated 285.3 MOS/KG (273-304); Total Protein 6.6 G/DL (6.4-8.3)
[2020-09-17 06:21] LABS: Platelet Count 114 T/CUMM (130-400)
[2020-09-17] MEDS: LEVOTHYROXINE 175 MCG TABLET PO SCH (06:30)
[2020-09-17 07:33] LABS: Anisocytosis 1+; Burr Cells Few; Macrocytosis Slight; Platelet Estimate Adequate
[2020-09-17] MEDS ORDERED: AMIODARONE 200 MG TABLET PO SCH (09:00)
[2020-09-17] MEDS: PANTOPRAZOLE 40 MG TABLET PO SCH (09:51)
[2020-09-17] MEDS: DEXTROSE 5% NACL 0.45% 1,000 ML IV SCH ×2 (09:51→17:40)
[2020-09-17] MEDS: ASPIRIN EC 81 MG TABLET PO SCH (09:51)
[2020-09-17] MEDS: NEBIVOLOL 5 MG TABLET PO SCH (09:52)
[2020-09-17] MEDS: ENOXAPARIN 30 MG/0.3 ML SYRINGE SUBCUT SCH (09:52)
[2020-09-17] MEDS: FAMOTIDINE 20 MG TABLET PO SCH (20:51)
[2020-09-17] MEDS: ASCORBIC ACID 500 MG TABLET PO SCH (20:51)
[2020-09-17] MEDS: MELATONIN 3 MG TABLET PO PRN (20:54)
[2020-09-18] MEDS: DEXTROSE 5% NACL 0.45% 1,000 ML IV SCH ×3 (00:30→17:00)
[2020-09-18] MEDS: LEVOTHYROXINE 175 MCG TABLET PO SCH (06:49)
[2020-09-18 06:58] LABS: Albumin 2.6 G/DL (3.4-5.0); Bilirubin,Total 0.4 MG/DL (0.2-1.0); Calcium 7.8 MG/DL (8.5-10.1); Osmolality,Calculated 286.4 MOS/KG (273-304); Total Protein 5.9 G/DL (6.4-8.3)
[2020-09-18 07:04] LABS: Ferritin 4946.8 ng/ml (26-388)
[2020-09-18] MEDS: levETIRAcetam 500 MG TABLET PO SCH ×2 (09:42→20:20)
[2020-09-18] MEDS: ENOXAPARIN 30 MG/0.3 ML SYRINGE SUBCUT SCH (09:42)
[2020-09-18] MEDS: ASCORBIC ACID 500 MG TABLET PO SCH ×2 (09:42→20:20)
[2020-09-18] MEDS: FAMOTIDINE 20 MG TABLET PO SCH ×2 (09:43→20:20)
[2020-09-18] MEDS: PANTOPRAZOLE 40 MG TABLET PO SCH (09:43)
[2020-09-18] MEDS: CHOLECALCIFEROL 1,000 UNIT TABLET PO SCH (09:43)
[2020-09-18] MEDS: NEBIVOLOL 5 MG TABLET PO SCH (09:43)
[2020-09-18] MEDS: CETIRIZINE 10 MG TABLET PO SCH (09:43)
[2020-09-18] MEDS: ASPIRIN EC 81 MG TABLET PO SCH (09:43)
[2020-09-18] MEDS: ZINC GLUCONATE 50 MG TABLET PO SCH (11:53)
[2020-09-18 13:56] LABS: INR 1.2; PT Patient Result 12.9 SECS (9.8-11.9)
[2020-09-18] MEDS: MELATONIN 3 MG TABLET PO PRN (20:20)
[2020-09-19] MEDS: DEXTROSE 5% NACL 0.45% 1,000 ML IV SCH ×3 (01:20→21:11)
[2020-09-19 06:08] LABS: Albumin 2.5 G/DL (3.4-5.0); Bilirubin,Total 0.6 MG/DL (0.2-1.0); Calcium 7.7 MG/DL (8.5-10.1); Osmolality,Calculated 275.8 MOS/KG (273-304); Total Protein 5.7 G/DL (6.4-8.3)
[2020-09-19] MEDS: LEVOTHYROXINE 175 MCG TABLET PO SCH (06:09)
[2020-09-19] MEDS: NEBIVOLOL 5 MG TABLET PO SCH (10:27)
[2020-09-19] MEDS: ZINC GLUCONATE 50 MG TABLET PO SCH (10:27)
[2020-09-19] MEDS: CETIRIZINE 10 MG TABLET PO SCH (10:27)
[2020-09-19] MEDS: CHOLECALCIFEROL 1,000 UNIT TABLET PO SCH (10:27)
[2020-09-19] MEDS: levETIRAcetam 500 MG TABLET PO SCH ×2 (10:27→21:10)
[2020-09-19] MEDS: ASCORBIC ACID 500 MG TABLET PO SCH ×2 (10:27→21:10)
[2020-09-19] MEDS: PANTOPRAZOLE 40 MG TABLET PO SCH (10:27)
[2020-09-19] MEDS: ASPIRIN EC 81 MG TABLET PO SCH (10:27)
[2020-09-19] MEDS: ENOXAPARIN 30 MG/0.3 ML SYRINGE SUBCUT SCH (10:28)
[2020-09-19] MEDS: FAMOTIDINE 20 MG TABLET PO SCH ×2 (10:28→21:10)
[2020-09-19] MEDS: POTASSIUM CHLORIDE 20 MEQ TABLET PO PRN ×4 (16:12→21:11)
[2020-09-20] MEDS: LEVOTHYROXINE 175 MCG TABLET PO SCH (05:32)
[2020-09-20 06:49] LABS: Albumin 2.6 G/DL (3.4-5.0); Bilirubin,Total 0.8 MG/DL (0.2-1.0); Calcium 8.1 MG/DL (8.5-10.1); Osmolality,Calculated 272.8 MOS/KG (273-304)
[2020-09-20] MEDS: CHOLECALCIFEROL 1,000 UNIT TABLET PO SCH (09:08)
[2020-09-20] MEDS: ASCORBIC ACID 500 MG TABLET PO SCH (09:08)
[2020-09-20] MEDS: ZINC GLUCONATE 50 MG TABLET PO SCH (09:08)
[2020-09-20] MEDS: CETIRIZINE 10 MG TABLET PO SCH (09:08)
[2020-09-20] MEDS: levETIRAcetam 500 MG TABLET PO SCH (09:08)
[2020-09-20] MEDS: FAMOTIDINE 20 MG TABLET PO SCH (09:08)
[2020-09-20] MEDS: ENOXAPARIN 30 MG/0.3 ML SYRINGE SUBCUT SCH (09:08)
[2020-09-20] MEDS: ASPIRIN EC 81 MG TABLET PO SCH (09:08)
[2020-09-20] MEDS: NEBIVOLOL 5 MG TABLET PO SCH (09:09)
[2020-09-20] MEDS: PANTOPRAZOLE 40 MG TABLET PO SCH (09:09)
[2020-09-20 12:08] VITALS: BP 154/70
[2020-09-20] MEDS: DEXTROSE 5% NACL 0.45% 1,000 ML IV SCH (15:51)
== END 2020-09-20 16:26 | DRG 177 ==
LOC: N.ED 13:28 → N.EDINP 20:00 → SUATTDRO 20:00 → N.2E 21:42
PROVIDERS: ADMIT Family Medicine; ATTEND Internal Medicine Geriatric Medicine

== ENCOUNTER 2020-09-21 03:46 | Inpatient (IN) ==
[2020-09-21] MEDS ORDERED: ACETAMINOPHEN 500 MG TABLET PO STA (04:06)
[2020-09-21] MEDS ORDERED: methylPREDNISolone SOD SUC 125 MG/2 ML VIAL IV STA (04:26)
[2020-09-21] MEDS ORDERED: FUROSEMIDE 40 MG/4 ML VIAL IV STA (04:29)
[2020-09-21 04:50] LABS: Basophils % 0.5 % (0.0-0.8); Hemoglobin 12.9 GM/DL (14.0-18.0); Immature Granulocytes % 0.5 %; Immature Granulocytes Absolute 0.02 #; Lymphocytes # 0.8 10*3/uL (1.4-4.0); Lymphocytes % 18.9 % (21.2-54.2); Mean Corpuscular HGB Conc 33.1 GM/DL (32-36); Mean Corpuscular Volume 88.6 FL (87-102); Mean Platelet Volume 12.6 FL (9.6-12.0); Monocytes % 20.3 % (1.7-12.7); Neutrophils % 59.8 % (38.7-73.9); Platelet Count 106 T/CUMM (130-400); Red Cell Distribution Width 14.3 % (9.3-17.3); White Blood Count 4.4 T/CUMM (4-12)
[2020-09-21 05:06] LABS: Albumin 2.9 G/DL (3.4-5.0); Bilirubin,Total 0.9 MG/DL (0.2-1.0); Calcium 8.4 MG/DL (8.5-10.1); Osmolality,Calculated 273.7 MOS/KG (273-304); Total Protein 7.1 G/DL (6.4-8.3)
[2020-09-21] MEDS ORDERED: DEXTROSE 50% 25 GM/50 ML VIAL IV PRN (05:28)
[2020-09-21] MEDS ORDERED: GLUCAGON 1 MG VIAL IM PRN (05:28)
[2020-09-21] MEDS ORDERED: hydrALAZINE 20 MG/1 ML VIAL IV PRN (05:28)
[2020-09-21] MEDS ORDERED: MORPHINE 4 MG/1 ML VIAL IV PRN (05:28)
[2020-09-21] MEDS ORDERED: diphenhydrAMINE CAP 25 MG CAPSULE PO PRN (05:28)
[2020-09-21] MEDS ORDERED: NICOTINE 21 MG/24 HR PATCH TRANSDERM PRN (05:28)
[2020-09-21] MEDS ORDERED: ACETAMINOPHEN 325 MG TABLET PO PRN (05:28)
[2020-09-21] MEDS ORDERED: ONDANSETRON 4 MG/2 ML VIAL IV PRN (05:28)
[2020-09-21 05:46] LABS: Ferritin 1010.4 ng/ml (26-388)
[2020-09-21 05:51] LABS: Acanthocytes Few; Band Neutrophils 1 % (0-10); Hypochromasia 1+; Lymphocytes 16 % (20-55); Segmented Neutrophils 65 % (50-85); Total Cells Counted 100
[2020-09-21 05:52] LABS: Microcytosis 1+; Platelet Estimate Adequate
[2020-09-21] MEDS ORDERED: cefTRIAXone 1,000 MG in SYRINGE 1 EACH IV SCH (06:00)
[2020-09-21] MEDS: ALBUTEROL INHALER 18 GM INH SCH ×5 (08:05→23:00)
[2020-09-21] MEDS: DEXAMETHASONE 4 MG/1 ML VIAL IV SCH (08:45)
[2020-09-21] MEDS: ASCORBIC ACID 500 MG TABLET PO SCH ×2 (08:45→20:47)
[2020-09-21] MEDS: ZINC GLUCONATE 50 MG TABLET PO SCH (08:45)
[2020-09-21] MEDS: FAMOTIDINE 20 MG TABLET PO SCH ×2 (08:45→20:47)
[2020-09-21] MEDS: CETIRIZINE 10 MG TABLET PO SCH (08:45)
[2020-09-21] MEDS: CHOLECALCIFEROL 1,000 UNIT TABLET PO SCH (08:45)
[2020-09-21] MEDS: ASPIRIN EC 81 MG TABLET PO SCH (13:00)
[2020-09-21] MEDS: POTASSIUM CHLORIDE 20 MEQ TABLET PO SCH ×2 (13:00→20:47)
[2020-09-21] MEDS: NEBIVOLOL 5 MG TABLET PO SCH (13:00)
[2020-09-21] MEDS: levETIRAcetam 250 MG TABLET PO SCH ×2 (13:00→20:47)
[2020-09-21] MEDS: RIVAROXABAN 10 MG TABLET PO SCH (13:00)
[2020-09-21] MEDS: AMIODARONE 200 MG TABLET PO SCH (13:00)
[2020-09-21] MEDS: amLODIPine 10 MG TABLET PO SCH (13:00)
[2020-09-21] MEDS: FUROSEMIDE 40 MG/4 ML VIAL IV SCH ×2 (13:29→16:00)
[2020-09-22] MEDS: ALBUTEROL INHALER 18 GM INH SCH ×6 (03:07→23:45)
[2020-09-22 04:29] LABS: Hematocrit 39.2 VOL% (42.0-52.0); Hemoglobin 13.2 GM/DL (14.0-18.0); Immature Granulocytes % 0.2 %; Immature Granulocytes Absolute 0.01 #; Lymphocytes # 0.5 10*3/uL (1.4-4.0); Lymphocytes % 9.4 % (21.2-54.2); Mean Corpuscular HGB Conc 33.7 GM/DL (32-36); Mean Platelet Volume 12.4 FL (9.6-12.0); Monocytes % 14.9 % (1.7-12.7); Neutrophils % 75.5 % (38.7-73.9); Platelet Count 107 T/CUMM (130-400); Red Blood Count 4.56 MC/CUMM (3.8-5.5); Red Cell Distribution Width 14.5 % (9.3-17.3)
[2020-09-22 04:46] LABS: Burr Cells Slight; Hypochromasia Slight; Microcytosis Slight; Ovalocytes Slight; Platelet Estimate Decreased
[2020-09-22 04:51] LABS: Albumin 2.6 G/DL (3.4-5.0); Bilirubin,Total 0.5 MG/DL (0.2-1.0); Calcium 8.3 MG/DL (8.5-10.1); Osmolality,Calculated 281.5 MOS/KG (273-304); Total Protein 6.8 G/DL (6.4-8.3)
[2020-09-22 05:48] LABS: Free T4 (Free Thyroxine) 2.19 NG/DL (0.76-1.46); Thyroid Stimulating Hormone 0.214 uIU/ml (0.358-3.74)
[2020-09-22] MEDS ORDERED: LEVOTHYROXINE 200 MCG TABLET PO SCH (06:30)
[2020-09-22] MEDS ORDERED: AZITHROMYCIN 250 MG TABLET PO SCH (09:00)
[2020-09-22] MEDS: FUROSEMIDE 40 MG/4 ML VIAL IV SCH (09:15)
[2020-09-22] MEDS: ASCORBIC ACID 500 MG TABLET PO SCH ×2 (13:30→21:10)
[2020-09-22] MEDS: RIVAROXABAN 10 MG TABLET PO SCH (13:30)
[2020-09-22] MEDS: CETIRIZINE 10 MG TABLET PO SCH (13:30)
[2020-09-22] MEDS: CHOLECALCIFEROL 1,000 UNIT TABLET PO SCH (13:30)
[2020-09-22] MEDS: NEBIVOLOL 5 MG TABLET PO SCH (13:30)
[2020-09-22] MEDS: POTASSIUM CHLORIDE 20 MEQ TABLET PO SCH ×2 (13:30→21:10)
[2020-09-22] MEDS: amLODIPine 10 MG TABLET PO SCH (13:30)
[2020-09-22] MEDS: ASPIRIN EC 81 MG TABLET PO SCH (13:30)
[2020-09-22] MEDS: FAMOTIDINE 20 MG TABLET PO SCH ×2 (13:30→21:10)
[2020-09-22] MEDS: ZINC GLUCONATE 50 MG TABLET PO SCH (13:30)
[2020-09-22] MEDS: DEXAMETHASONE 4 MG/1 ML VIAL IV SCH (13:30)
[2020-09-22] MEDS: AMIODARONE 200 MG TABLET PO SCH (13:30)
[2020-09-22] MEDS: levETIRAcetam 250 MG TABLET PO SCH ×2 (14:58→21:10)
[2020-09-23] MEDS: ALBUTEROL INHALER 18 GM INH SCH ×3 (03:15→12:15)
[2020-09-23 05:23] LABS: Basophils % 0.1 % (0.0-0.8); Hematocrit 40.3 VOL% (42.0-52.0); Hemoglobin 13.4 GM/DL (14.0-18.0); Immature Granulocytes % 0.5 %; Immature Granulocytes Absolute 0.05 #; Lymphocytes # 0.5 10*3/uL (1.4-4.0); Lymphocytes % 5.6 % (21.2-54.2); Mean Corpuscular HGB Conc 33.3 GM/DL (32-36); Mean Corpuscular Volume 86.9 FL (87-102); Mean Platelet Volume 13.2 FL (9.6-12.0); Monocytes % 10.4 % (1.7-12.7); Neutrophils % 83.4 % (38.7-73.9); Platelet Count 130 T/CUMM (130-400); Red Blood Count 4.64 MC/CUMM (3.8-5.5); Red Cell Distribution Width 14.6 % (9.3-17.3); White Blood Count 9.4 T/CUMM (4-12)
[2020-09-23 05:45] LABS: Albumin 2.5 G/DL (3.4-5.0); Bilirubin,Total 0.8 MG/DL (0.2-1.0); Calcium 8.2 MG/DL (8.5-10.1); Osmolality,Calculated 289.4 MOS/KG (273-304); Total Protein 6.8 G/DL (6.4-8.3)
[2020-09-23 05:46] LABS: Ovalocytes Slight
[2020-09-23 05:47] LABS: Acanthocytes Few; Burr Cells Slight; Hypochromasia Slight; Microcytosis Slight
[2020-09-23 05:51] LABS: Free T4 (Free Thyroxine) 1.95 NG/DL (0.76-1.46); Thyroid Stimulating Hormone 0.216 uIU/ml (0.358-3.74)
[2020-09-23] MEDS ORDERED: FUROSEMIDE 40 MG TABLET PO SCH (09:00)
[2020-09-23] MEDS: ASPIRIN EC 81 MG TABLET PO SCH (10:49)
[2020-09-23] MEDS: NEBIVOLOL 5 MG TABLET PO SCH (10:49)
[2020-09-23] MEDS: DEXAMETHASONE 4 MG/1 ML VIAL IV SCH (10:50)
[2020-09-23] MEDS: AMIODARONE 200 MG TABLET PO SCH (10:50)
[2020-09-23] MEDS: POTASSIUM CHLORIDE 20 MEQ TABLET PO SCH (10:50)
[2020-09-23] MEDS: levETIRAcetam 250 MG TABLET PO SCH (10:51)
[2020-09-23] MEDS: FAMOTIDINE 20 MG TABLET PO SCH (10:51)
[2020-09-23] MEDS: amLODIPine 10 MG TABLET PO SCH (10:51)
[2020-09-23] MEDS: CHOLECALCIFEROL 1,000 UNIT TABLET PO SCH (10:51)
[2020-09-23] MEDS: RIVAROXABAN 10 MG TABLET PO SCH (10:51)
[2020-09-23] MEDS: ZINC GLUCONATE 50 MG TABLET PO SCH (10:51)
[2020-09-23] MEDS: ASCORBIC ACID 500 MG TABLET PO SCH (10:51)
[2020-09-23 11:41] VITALS: BP 137/64
[2020-09-23] MEDS: CETIRIZINE 10 MG TABLET PO SCH (14:01)
== END 2020-09-23 15:10 | DRG 177 ==
LOC: SUATTDRO → EDBD → EDUNIT# → N.ED 03:46 → N.EDINP 03:46 → SUATTDRO 05:28 → N.2E 09-22 09:42
PROVIDERS: ADMIT Internal Medicine; ATTEND Internal Medicine